=== PATIENT | male | born 1950 | race Caucasian/White ===

== ENCOUNTER → 2017-08-23 10:48 | Outpatient (CLI) | payer MEDICARE, SELFPAY ==
[2017-08-23 12:11] LABS: Absolute Neutrophil Count 4.9 X10^3/uL (2.0-7.7); Basophil# 0.01 X10^3/uL; Basophil% 0.2 % (0-1); Eosinophil# 0.04 X10^3/uL; Eosinophils% 0.6 % (0-5); Hematocrit 47.1 % (40-54); Hemoglobin 15.6 g/dl (13.0-16.5); Lymphocyte % 17.1 % (19-41); Mean Corp Hgb Conc 33.1 g/gl (32-36); Mean Corpuscular Hgb 30.6 pg (27.0-32.0); Mean Corpuscular Volume 92.5 fL (80-94); Mean Platelet Vol. 10.8 fl (6.2-12.0); Monocyte# 0.35 X10^3/uL; Monocyte% 5.4 % (0-10); Neutrophil # 4.93 X10^3/uL (2.7-7.7); Neutrophil % 76.4 % (47-70); Platelet Count 146 K/mm3 (150-450); RBC Distribution Width CV 14.1 % (11.6-14.6); RBC Distribution Width SD 47.7 fl (35.1-43.9); Red Blood Count 5.09 M/mm3 (4.6-6.2); White Blood Count 6.5 K/mm3 (4.4-11.0)
[2017-08-23 12:13] LABS: POSITIVE COUNT NO; POSITIVE DIFFERENTIAL NO; POSITIVE MORPHOLOGY NO
[2017-08-23 12:20] LABS: Microalbumin:Creatinine Ratio 11.6 mg/g CRE (<30 mg/g CRE)
[2017-08-23 12:31] LABS: ALB/GLOB Ratio 0.8 RATIO (0.9-2.4); AST(SGOT) 37 U/L (15-37); Alanine Aminotransfer ALT/SGPT 62 U/L (16-61); Albumin, Serum 3.4 g/dL (3.2-5.0); Alkaline Phosphatase 64 U/L (45-117); Anion Gap 8 (5-15); BUN 19 mg/dL (7-18); BUN/Creat Ratio 15.8 RATIO (10-20); Calcium,Total 8.6 mg/dL (8.5-10.1); Chloride 107 mmol/L (98-107); EST Glomerular Filtration Rate 64 mL/min (>60); Est Glom Filt Rate - Afr Amer 77 mL/min (>60); Glucose 134 mg/dL (74-106); Protein, Total 7.4 g/dL (6.4-8.2); Sodium Level 140 mmol/L (136-145)
[2017-08-23 12:35] LABS: Hemoglobin A1c 7.3 % (4.2-6.3)
== END ==
PROVIDERS: Family Provider Family Medicine; PCP Family Medicine; Visit Provider Family Medicine
DX: Z00.00 Encounter for general adult medical examination without abnormal findings (principal); I10 Essential (primary) hypertension; R73.01 Impaired fasting glucose; E66.9 Obesity, unspecified
CPT/HCPCS: 36415; 80053; 82043; 82570; 83036; 84443; 85025

== ENCOUNTER → 2017-11-30 09:21 | Outpatient (CLI) | payer MEDICARE, SELFPAY ==
[2017-11-30 12:21] LABS: Hemoglobin A1c 8.2 % (4.2-6.3)
== END ==
PROVIDERS: Family Provider Family Medicine; PCP Family Medicine; Visit Provider Family Medicine
DX: E03.9 Hypothyroidism, unspecified (principal); E11.9 Type 2 diabetes mellitus without complications
CPT/HCPCS: 36415; 83036; 84439; 84443

== ENCOUNTER → 2018-01-12 17:37 | Outpatient (CLI) | payer MEDICARE, SELFPAY | PROVIDERS: Family Provider Family Medicine; PCP Family Medicine; Visit Provider Internal Medicine Hematology & Oncology | DX: Z87.891 Personal history of nicotine dependence (principal); Z12.2 Encounter for screening for malignant neoplasm of respiratory organs; C21.8 Malignant neoplasm of overlapping sites of rectum, anus and anal canal | CPT/HCPCS: G0297 ==

== ENCOUNTER → 2018-02-08 15:55 | Outpatient (CLI) | payer MEDICARE, SELFPAY | PROVIDERS: Family Provider Family Medicine; PCP Family Medicine; Visit Provider Nurse Practitioner Family | DX: N39.0 Urinary tract infection, site not specified (principal) | CPT/HCPCS: 87077; 87086; 87088; 87186 ==

== ENCOUNTER → 2018-03-28 10:24 | Outpatient (CLI) | payer MEDICARE, SELFPAY ==
[2018-03-28 12:20] LABS: Absolute Lymphocyte Count 1.07 X10^3/ul (0.83-4.51); Absolute Neutrophil Count 4.6 X10^3/uL (2.0-7.7); Basophil# 0.02 X10^3/uL; Basophil% 0.3 % (0-1); Eosinophil# 0.06 X10^3/uL; Hematocrit 45.5 % (40-54); Lymphocyte # 1.07 X10^3/ul (4.0); Lymphocyte % 17.4 % (19-41); Mean Platelet Vol. 11.1 fl (6.2-12.0); Monocyte# 0.39 X10^3/uL; Monocyte% 6.3 % (0-10); Neutrophil # 4.61 X10^3/uL (2.7-7.7); Neutrophil % 74.8 % (47-70); Platelet Count 148 K/mm3 (150-450); RBC Distribution Width CV 13.9 % (11.6-14.6); RBC Distribution Width SD 47.8 fl (35.1-43.9); Red Blood Count 4.84 M/mm3 (4.6-6.2); White Blood Count 6.2 K/mm3 (4.4-11.0)
[2018-03-28 12:32] LABS: POSITIVE COUNT NO; POSITIVE DIFFERENTIAL NO; POSITIVE MORPHOLOGY NO
[2018-03-28 12:54] LABS: Albumin, Serum 3.1 g/dL (3.2-5.0); BUN 19 mg/dL (7-18); BUN/Creat Ratio 16.4 RATIO (10-20); Creatinine, Serum 1.16 mg/dL (0.70-1.30); EST Glomerular Filtration Rate 66 mL/min (>60); Est Glom Filt Rate - Afr Amer 80 mL/min (>60); Globulin 4.1 g/dL (2.2-4.2); Glucose 120 mg/dL (74-106); Protein, Total 7.2 g/dL (6.4-8.2)
[2018-03-28 12:55] LABS: ALB/GLOB Ratio 0.8 RATIO (0.9-2.4); AST(SGOT) 88 U/L (15-37); Alanine Aminotransfer ALT/SGPT 112 U/L (16-61); Alkaline Phosphatase 56 U/L (45-117); Anion Gap 7 (5-15); Calcium,Total 8.8 mg/dL (8.5-10.1); Chloride 108 mmol/L (98-107); Cholesterol 164 mg/dL (200); Hemoglobin A1c 6.7 % (4.2-6.3); High Density Lipoprotein 36 mg/dL; Potassium 4.1 mmol/L (3.5-5.1); Sodium Level 140 mmol/L (136-145); Thyroid Stim Hormone (TSH) 8.14 uIU/mL (0.358-3.74); Triglycerides 126 mg/dL; Very Low Density Lipoprotein 25 mg/dL (5-40)
== END ==
PROVIDERS: Family Provider Family Medicine; PCP Family Medicine; Visit Provider Family Medicine
DX: I10 Essential (primary) hypertension (principal); E03.9 Hypothyroidism, unspecified; E11.9 Type 2 diabetes mellitus without complications
CPT/HCPCS: 36415; 80053; 80061; 83036; 84443; 85025

== ENCOUNTER → 2019-01-17 | Outpatient (CLI) | payer MEDICARE, SELFPAY ==
[2018-09-12 10:44] VITALS: BMI 40.3
--- NOTE | 2019-01-17 12:46 | CT_ITS ---
STUDY: LOW DOSE CT LUNG CANCER SCREENING REASON FOR EXAM: Male, 68 years old. Lung cancer screening examination. 50 pack-year history of tobacco use. History of rectal carcinoma with colostomy. RADIATION DOSAGE (If Supplied By Facility): CTDIvol = ( 4.02 ) mGy, DLP = ( 150.49 ) mGycm TECHNIQUE: No contrast was administered. Low dose technique was utilized (average mAS-38 and kVp 120). 1.25 mm axial source images with a slice interval of 1.25-mm were reconstructed in lung windows. 2.5 mm axial source images with a slice interval of 2.5-mm were reconstructed in lung windows. 5.0 mm axial source images with a slice interval of 5.0-mm were reconstructed in soft tissue windows. Nodule measured using lung windows on PACS and/or independent workstation with automated measurement of minimum and maximum diameter. Nodule measurement reported as average diameter rounded to the nearest whole number. Growth is defined as an increase ins size of greater than 1.5 mm. COMPARISON: Comparison is made with prior study January 12, 2018. NODULES: Stable 6 mm noncalcified nodule seen in the lateral posterior aspect of the right lower lobe as seen on axial image #189. Stable 2.3 mm noncalcified nodule in the peripheral lateral aspect of the left lower lobe as seen on axial image #202. Stable 6.6 mm well-defined nodule in the posterior medial segment of the right lower lobe as seen on axial image #133. Minimal increased markings in the lingular segment of the left upper lobe as well as in the medial aspect of the right middle lobe suggestive of scarring. Emphysema: Mild emphysematous changes. Calcified right hilar lymph node. Aorta: Unremarkable. Coronary arteries: Coronary artery calcification. Mediastinal nodes: Small benign-appearing mediastinal lymph nodes. Other chest and abdominal findings: CT/Low Dose CT Lung Screening IMPRESSION: Lung-RADS category 2 - Continue annual screening with LDCT in 12 months. IMPORTANT NOTES FOR USE: ACR Lung-RADS Version 1.0 Assessment Categories Release Date: September 11, 2013 Category: Coded 0-4 bases on nodule(s) with highest degree of suspicion. Negative screen is defined as categories 1 and 2; a positive screen is defined as categories 3 and 4. Category 3 and 4A nodules that are unchanged on interval CT should be coded as category 2, and individuals returned to screening in 12 months. Category 4X: Category 3 or 4 nodules with additional imaging findings that increase the suspicion of lung cancer, such as spiculation, GGN that doubles in size in 1 year, enlarged lymph notes, etc. Category Modifiers: S (significant finding unrelated to lung cancer) and C (prior history of treated lung cancer) may be added to the 0-4 Lung-RADS Electronically Signed: Aung Toure, at 13:46 EDT , Service support ,
== END | disposition home or self-care (01) ==
LOC: CT 11:51
PROVIDERS: Family Provider Family Medicine; PCP Family Medicine; Referring Provider Nurse Practitioner Family; Visit Provider Nurse Practitioner Family
DX: F17.209 Nicotine dependence, unspecified, with unspecified nicotine-induced disorders (principal); Z12.2 Encounter for screening for malignant neoplasm of respiratory organs; Z87.891 Personal history of nicotine dependence
CPT/HCPCS: G0297

== ENCOUNTER → 2020-02-06 13:21 | Outpatient (CLI) | payer MEDICARE, SELFPAY ==
[2019-12-04 11:28] VITALS: BMI 37.6
--- NOTE | 2020-02-06 13:23 | CT_ITS ---
STUDY: LOW DOSE CT LUNG CANCER SCREENING REASON FOR EXAM: Male, 69 years old. SMOKER, 1 PPD X 50 YRS. RADIATION DOSAGE (If Supplied By Facility): CTDIvol = ( 4.02 ) mGy, DLP = ( 148.48 ) mGycm TECHNIQUE: No contrast was administered. Low dose technique was utilized (average mAS-38 and kVp 120). 1.25 mm axial source images with a slice interval of 1.25-mm were reconstructed in lung windows. 2.5 mm axial source images with a slice interval of 2.5-mm were reconstructed in lung windows. 5.0 mm axial source images with a slice interval of 5.0-mm were reconstructed in soft tissue windows. Nodule measured using lung windows on PACS and/or independent workstation with automated measurement of minimum and maximum diameter. Nodule measurement reported as average diameter rounded to the nearest whole number. Growth is defined as an increase ins size of greater than 1.5 mm. COMPARISON: Comparison is made with prior study dated 01/17/2019. NODULES: Faint 2 mm noncalcified nodule seen in the lateral aspect of the right upper lobe as seen on axial image #56. Stable 6 mm noncalcified nodule in the lateral posterior aspect of the right lower lobe as seen on axial image #176. Stable 2.3 mm noncalcified nodule in the peripheral lateral aspect of the left lower lobe as seen on axial image #208. Stable 6.6 mm well-defined nodule in the posterior medial segment of the right lower lobe as seen on axial image #130 Emphysema: Mild emphysematous changes. Aorta: Calcified aortic plaques at the level of the aortic arch. Coronary arteries: Coronary artery calcification. Mediastinal nodes: Small benign-appearing mediastinal lymph nodes. Other chest and abdominal findings: CT/Low Dose CT Lung Screening IMPRESSION: Lung-RADS category 2 - Continue annual screening with LDCT in 12 months. IMPORTANT NOTES FOR USE: ACR Lung-RADS Version 1.0 Assessment Categories Release Date: September 11, 2013 Category: Coded 0-4 bases on nodule(s) with highest degree of suspicion. Negative screen is defined as categories 1 and 2; a positive screen is defined as categories 3 and 4. Category 3 and 4A nodules that are unchanged on interval CT should be coded as category 2, and individuals returned to screening in 12 months. Category 4X: Category 3 or 4 nodules with additional imaging findings that increase the suspicion of lung cancer, such as spiculation, GGN that doubles in size in 1 year, enlarged lymph notes, etc. Category Modifiers: S (significant finding unrelated to lung cancer) and C (prior history of treated lung cancer) may be added to the 0-4 Lung-RADS Electronically Signed: Aung Toure, at 14:43 EDT , Service support ,
== END ==
PROVIDERS: PCP Family Medicine; Referring Provider Nurse Practitioner Family; Visit Provider Nurse Practitioner Family
DX: Z12.2 Encounter for screening for malignant neoplasm of respiratory organs (principal); F17.210 Nicotine dependence, cigarettes, uncomplicated
CPT/HCPCS: G0297

== ENCOUNTER → 2020-04-22 14:21 | Outpatient (CLI) | payer MEDICARE, SELFPAY ==
[2019-12-04 11:28] VITALS: BMI 37.6
[2020-04-22 18:20] LABS: Absolute Lymphocyte Count 1.79 X10^3/uL (0.83-4.51); Absolute Neutrophil Count 6.4 X10^3/uL (2.0-7.7); Basophil# 0.06 X10^3/uL; Basophil% 0.7 % (0-1); Eosinophil# 0.08 X10^3/uL; Eosinophils% 0.9 % (0-5); Hematocrit 47.5 % (40-54); Hemoglobin 15.5 g/dL (13.0-16.5); Lymphocyte # 1.79 X10^3/ul (4.0); Lymphocyte % 20.2 % (19-41); Mean Corp Hgb Conc 32.6 g/dL (32-36); Mean Corpuscular Hgb 30.2 pg (27.0-32.0); Mean Corpuscular Volume 92.6 fL (80-94); Mean Platelet Vol. 11.1 fl (6.2-12.0); Monocyte# 0.49 X10^3/uL; Monocyte% 5.5 % (0-10); NRBC Flagged by Analyzer 0 % (0-5); Neutrophil # 6.36 X10^3/uL (2.7-7.7); Neutrophil % 71.7 % (47-70); Platelet Count 195 K/mm3 (150-450); RBC Distribution Width CV 13.2 % (11.6-14.6); RBC Distribution Width SD 45.4 fl (35.1-43.9); Red Blood Count 5.13 M/mm3 (4.6-6.2); White Blood Count 8.9 K/mm3 (4.4-11.0)
[2020-04-22 18:30] LABS: ALB/GLOB Ratio 0.8 RATIO (0.9-2.4); AST(SGOT) 64 U/L (15-37); Alanine Aminotransfer ALT/SGPT 113 U/L (16-61); Albumin, Serum 3.3 g/dL (3.2-5.0); Alkaline Phosphatase 83 U/L (45-117); Anion Gap 6 (5-15); BUN 18 mg/dL (7-18); BUN/Creat Ratio 16.5 RATIO (10-20); Calcium,Total 9.2 mg/dL (8.5-10.1); Chloride 105 mmol/L (98-107); Creatinine, Serum 1.09 mg/dL (0.70-1.30); EST Glomerular Filtration Rate 71 mL/min (>60); Est Glom Filt Rate - Afr Amer 86 mL/min (>60); Globulin 4.2 g/dL (2.2-4.2); Glucose 164 mg/dL (74-106); Potassium 3.9 mmol/L (3.5-5.1); Protein, Total 7.5 g/dL (6.4-8.2); Sodium Level 136 mmol/L (136-145)
[2020-04-23 11:41] LABS: Vitamin D,25 Hydroxy 18.8 ng/mL
== END ==
PROVIDERS: PCP Family Medicine; Referring Provider Family Medicine; Visit Provider Family Medicine
DX: E11.9 Type 2 diabetes mellitus without complications (principal); L30.4 Erythema intertrigo
CPT/HCPCS: 36415; 80053; 82306; 83036; 84443; 85025

== ENCOUNTER → 2020-04-30 10:11 | Outpatient (CLI) | payer MEDICARE, SELFPAY ==
[2019-12-04 11:28] VITALS: BMI 37.6
[2020-04-30 13:41] LABS: Cholesterol 178 mg/dL (200); Free T3 2.4 pg/mL (2.18-3.98); High Density Lipoprotein 35 mg/dL; Triglycerides 240 mg/dL; Very Low Density Lipoprotein 48 mg/dL (5-40)
== END ==
PROVIDERS: PCP Family Medicine; Referring Provider Family Medicine; Visit Provider Family Medicine
DX: E03.9 Hypothyroidism, unspecified (principal); E11.9 Type 2 diabetes mellitus without complications
CPT/HCPCS: 36415; 80061; 84439; 84481

== ENCOUNTER → 2020-08-08 10:46 | Outpatient (CLI) | payer MEDICARE, SELFPAY ==
[2019-12-04 11:28] VITALS: BMI 37.6
[2020-08-08 12:39] LABS: Absolute Lymphocyte Count 1.62 X10^3/uL (0.83-4.51); Absolute Neutrophil Count 7.8 X10^3/uL (2.0-7.7); Basophil# 0.05 X10^3/uL; Basophil% 0.5 % (0-1); Eosinophil# 0.06 X10^3/uL; Eosinophils% 0.6 % (0-5); Hematocrit 46.3 % (40-54); Hemoglobin 15.9 g/dL (13.0-16.5); Lymphocyte # 1.62 X10^3/ul (4.0); Lymphocyte % 15.9 % (19-41); Mean Corp Hgb Conc 34.3 g/dL (32-36); Mean Corpuscular Hgb 31.7 pg (27.0-32.0); Mean Corpuscular Volume 92.2 fL (80-94); Mean Platelet Vol. 11.4 fl (6.2-12.0); Monocyte# 0.61 X10^3/uL; NRBC Flagged by Analyzer 0 % (0-5); Neutrophil # 7.81 X10^3/uL (2.7-7.7); Neutrophil % 76.4 % (47-70); Platelet Count 176 K/mm3 (150-450); RBC Distribution Width CV 13.3 % (11.6-14.6); RBC Distribution Width SD 44.5 fl (35.1-43.9); Red Blood Count 5.02 M/mm3 (4.6-6.2); White Blood Count 10.2 K/mm3 (4.4-11.0)
[2020-08-08 13:02] LABS: Hemoglobin A1c 9.1 % (3.8-5.6)
[2020-08-08 13:19] LABS: ALB/GLOB Ratio 0.8 RATIO (0.9-2.4); AST(SGOT) 64 U/L (15-37); Alanine Aminotransfer ALT/SGPT 102 U/L (16-61); Albumin, Serum 3.4 g/dL (3.2-5.0); Alkaline Phosphatase 78 U/L (45-117); Anion Gap 6 (5-15); BUN 19 mg/dL (7-18); Calcium,Total 9.6 mg/dL (8.5-10.1); Chloride 105 mmol/L (98-107); Creatinine, Serum 1.19 mg/dL (0.70-1.30); EST Glomerular Filtration Rate 64 mL/min (>60); Est Glom Filt Rate - Afr Amer 77 mL/min (>60); Globulin 4.5 g/dL (2.2-4.2); Glucose 201 mg/dL (74-106); Protein, Total 7.9 g/dL (6.4-8.2); Sodium Level 135 mmol/L (136-145)
== END ==
PROVIDERS: PCP Family Medicine; Referring Provider Family Medicine; Visit Provider Family Medicine
DX: E11.9 Type 2 diabetes mellitus without complications (principal)
CPT/HCPCS: 36415; 80053; 83036; 85025

== ENCOUNTER 2020-08-23 12:18 | Emergency (ER) | payer MEDICARE, SELFPAY ==
[2019-12-04 11:28] VITALS: BMI 37.6
[2020-08-23 12:19] VITALS: BP 161/100; PULSE 91; RESP 16; TEMP 36.1; O2SAT 97; BMI 38.4
--- NOTE | 2020-08-23 12:52 | CT_ITS ---
STUDY: CT ABDOMEN AND PELVIS WITH CONTRAST REASON FOR EXAM: Male, 70 years old. ventral hernia, pain, n/v -- IV PO Contrast RADIATION DOSAGE (If Supplied By Facility): CTDIvol = ( 18.98 ) mGy, DLP = ( 1395.71 ) mGycm TECHNIQUE: Transaxial images were obtained from the dome of the diaphragm to the symphysis pubis with oral contrast. Oral and amp; IV Gastrografin and amp; 100mL Isovue-300 was administered. Sagittal and coronal images were reconstructed. Individualized dose optimization techniques were used for this CT. COMPARISON: 12/04/2015 FINDINGS: The visualized lung bases are unremarkable. The visualized portions of the heart are within normal limits. No change in multiple small hepatic cysts. Normal gallbladder and extrahepatic biliary system. Normal spleen. Normal pancreas. Normal bilateral adrenal glands. Normal right kidney. Normal left kidney. Normal visualized stomach. Small diverticulum of the second portion duodenum. Status post abdominal perineal resection with a left lower quadrant colostomy. The appendix is visualized and appears normal. Normal abdominal aorta. Normal inferior vena cava. Normal retroperitoneum. Normal urinary bladder. There is a large (15 cm) hernia of the midline of the anterior abdominal wall in the pelvis containing multiple loops of dilated fluid-filled small bowel with moderate fluid-filled dilatation of small bowel proximal to the entrance the hernia consistent with obstruction. No bowel wall thickening or pneumatosis to suggest bowel wall ischemia. No pneumoperitoneum to suggest perforation. Normal osseous structures. CT/Abdomen/Pelvis WITH Contrast IMPRESSION: Large hernia the midline in the anterior abdominal wall in the pelvis containing multiple loops of small bowel in producing a moderate small bowel obstruction. No evidence of bowel ischemia or bowel perforation. Electronically Signed: Blas Vicente MD at 15:30 EDT Tel , Service support ,
--- NOTE | 2020-08-23 12:53 | ED.DCSUM_ITS ---
History of Present Illness Chief Complaint: Abd Pain Informant: Patient - Abdominal Pain/Flank Pain Onset: Yesterday - Last night at 2300 Context: Sudden Onset Timing: Continuous, Waxes and wanes Quality: Aching Location: - - Lower abdomen at site of chronically worsening swelling Current Severity: Moderate Maximum Severity: Severe Worsened by: Nothing Relieved by: Nothing - Nausea/Vomiting/Emesis GI Symptom: Nausea, Vomiting - Diarrhea/Melena/Hematochezia GI Symptom: - - Last bowel movement in colostomy 2 days ago and was very small amount. Negative for: Diarrhea, Melena, Hematochezia Associated Symptoms: Negative for: Dysuria, Frequency, Hematuria, Urgency Narrative: Patient has history of colon cancer, had a partial colectomy along with a colostomy 5-6 years ago, as well as a large ventral hernia that was repaired with a large mesh remotely. He had a urinary injury complication of one of his surgeries, and had to have a suprapubic catheter for a while while it healed, that has been removed and now he urinates fine. Over the last several months he has developed swelling in his lower abdomen next to one of his abdominal scars, he states recently it has seemed to become larger and last night he had sudden pain over it that has been colicky and progressively worsening along with an episode of vomiting today. Recent Illness/Hospitalization: No - Past Medical History (1) Neuropathy Status: Chronic (2) Rectum cancer Status: Chronic Past Medical History - Allergies and Home Meds Allergies/Adverse Reactions: Allergies No Known Allergies Allergy (Verified 08/23/20 12:19) Primary Care Physician: Byron Brand MD [Primary Care Provider] - Lives: Spouse/ Significant Other Smoking Status: Current every day smoker Review of Systems General: Denies: Chills, Fever, Sweats Eyes: Denies: Visual changes - bilaterally, Diplopia ENT: Denies: Rhinorrhea, Sore throat Cardiovascular: Denies: Chest pain, Palpitations Respiratory: Denies: Dyspnea, Cough, Dyspnea on exertion Gastrointestinal: Reports: Abdominal pain, Nausea, Vomiting. Denies: Diarrhea, Melena, Hematochezia Genitourinary: Denies: Dysuria, Hematuria, Frequency Musculoskeletal: Denies: Back pain, Swelling, Extremity Pain Skin: Denies: Rash, Wounds Neurological: Denies: Headache, Weakness, Numbness Physical Exam Vital Signs/Narrative: Vital Signs Temp Pulse Resp BP Pulse Ox 08/23/20 12:19 96.9 F L 91 16 161/100 H 97 Inital Vital Signs reviewed: Yes General: Well nourished, Well developed, Acute Distress - When pain temporarily exacerbates Head: Normocephalic, Atraumatic Eyes: Perrl, EOMI ENT: Moist mucous membranes, No rhinorrhea Neck: Supple, Nontender Cardiovascular: Regular rate, Regular rhythm, No murmurs Respiratory: No distress, CTA bilaterally, Chest nontender Abdomen: Soft, Nondistended, Tender - Over lower abdominal swollen area compatible with ventral hernia, but soft and able to move it around quite a bit; No other areas of significant abdominal tenderness including around his colostomy left mid abdomen, Hypoactive bowel sounds. Negative for: Guarding, Rebound tenderness Back: Nontender, Normal Inspection. Negative for: CVA tenderness Extremities: Nontender, No edema. Negative for: Calf Tenderness Skin: Normal color, No rash, No Trauma Neurological: Alert, Oriented x3, Cranial nerves II-XII grossly intact, Normal Strength, Normal Sensation Psychological: Normal affect, Normal Mood Diagnostic/Tx/Re-eval Clinical Impression(s) from Imaging Studies Abdomen/Pelvis CT 08/23/20 12:52 IMPRESSION: Large hernia the midline in the anterior abdominal wall in the pelvis containing multiple loops of small bowel in producing a moderate small bowel obstruction. No evidence of bowel ischemia or bowel perforation. Electronically Signed: Blas Vicente MD at 15:30 EDT Tel , Service support , Laboratory Tests 08/23/20 08/23/20 08/23/20 Range/Units 14:29 13:15 13:15 WBC 16.5 H (4.4-11.0) K/mm3 RBC 5.63 (4.6-6.2) M/mm3 Hgb 17.2 H (13.0-16.5) g/dL Hct 50.5 (40-54) % MCV 89.7 (80-94) fL MCH 30.6 (27.0-32.0) pg MCHC 34.1 (32-36) g/dL RDW Std Deviation 42.8 (35.1-43.9) fl RDW Coeff of Ewa 12.9 (11.6-14.6) % Plt Count 242 (150-450) K/mm3 MPV 11.0 (6.2-12.0) fl Immature Gran % (Auto) 0.800 (0.0-0.9) % Neut % (Auto) 90.0 H (47-70) % Lymph % (Auto) 5.4 L (19-41) % [place] % (Auto) 3.5 (0-10) % Eos % (Auto) 0.0 (0-5) % Baso % (Auto) 0.3 (0-1) % Absolute Neuts (auto) 14.9 H (2.0-7.7) X10^3/uL Absolute Lymphs (auto) 0.89 (0.83-4.51) X10^3/uL Nucleated RBC % 0 (0-5) % Sodium 131 L (136-145) mmol/L Potassium 4.3 (3.5-5.1) mmol/L Chloride 100 (98-107) mmol/L Carbon Dioxide 23.0 (21.0-32.0) mmol/L Anion Gap 8 (5-15) BUN 28 H (7-18) mg/dL Creatinine 1.38 H (0.70-1.30) mg/dL Estim Creat Clear Calc 46.81 ml/min Est GFR (MDRD) Af Amer 65 (>60) mL/min Est GFR (MDRD) Non-Af 54 L (>60) mL/min BUN/Creatinine Ratio 20.3 H (10-20) RATIO Glucose 285 H (74-106) mg/dL Calcium 10.0 (8.5-10.1) mg/dL Total Bilirubin 1.40 H (0.20-1.00) mg/dL AST 73 H (15-37) U/L ALT 118 H (16-61) U/L Alkaline Phosphatase 79 (45-117) U/L Total Protein 8.5 H (6.4-8.2) g/dL Albumin 3.8 (3.2-5.0) g/dL Globulin 4.7 H (2.2-4.2) g/dL Albumin/Globulin Ratio 0.8 L (0.9-2.4) RATIO Urine Color Yellow (Yellow) Urine Clarity Sl. Cloudy (Clear) Urine pH 5.0 (5.0 - 8.0) Ur Specific [place] 1.025 (1.002-1.030) Urine Protein 15 H (Negative) mg/dl Urine Glucose (UA) 250 H (Normal) mg/dl Urine Ketones 15 H (Negative) mg/dl Urine Occult Blood Negative (Negative) /ul Urine Nitrite Negative (Negative) Urine Bilirubin 1 H (Negative) mg/dL Urine Urobilinogen 1 H (Normal) mg/dl Ur Leukocyte Esterase 100 H (Negative) /ul Urine RBC 0 SEEN (0-5) /hpf Urine WBC 0-5 SEEN (0-5) /hpf Ur Squamous Epith Cells 0-5 SEEN (0-5) /hpf Urine Bacteria RARE (None Seen) /hpf Urine Mucus 1+ (<or=2+) /hpf - Medical Decision Making Work-up as above, patient does have a small bowel obstruction. No evidence of incarceration or bowel ischemia. Patient and family are requesting specific surgeon that is not available or on-call this weekend, so I discussed with the on-call surgeon Dr. Hernandez who reviewed the case and CT scan, told me that he is too complicated to remain here, as he will likely need surgery to repair this. Further information from the patient: He had the partial colectomy and colostomy at [place], subsequently he ended up having surgery several times at [facility] to repair a hernia involving the colostomy, in addition to a flap from his abdomen to repair a defect in his right buttock/sacrum. The hernia he has now that is involved with the obstruction is in the area where the flap was taken from and is a new hernia relatively. The patient does not want to go to [facility] if he cannot stay here. Discussed with [facility], they are tight on beds right now but expect to have 1 available in 3 or 4 hours from now. Therefore the patient will be observed here in the emergency department until we have a bed available, we anticipate then he will be transferred. I will turn the patient over in the meantime. I also have ordered a lactic acid to ensure it is within normal limits in addition to a Covid test. ED Disposition - Plan for ED Patient: Disposition: [facility] Diagnosis: Ventral hernia with obstruction and without gangrene Referrals: Byron Brand MD [Primary Care Provider] -
[2020-08-23] MEDS: 0.9% Normal Saline 1,000 ML 1000 ML IV (13:24)
[2020-08-23] MEDS: Morphine 4 MG/ML Syringe IV ×3 (13:24→16:57)
[2020-08-23] MEDS: Ondansetron 4 MG/2 ML Vial IV (13:26)
[2020-08-23 13:27] LABS: Absolute Lymphocyte Count 0.89 X10^3/uL (0.83-4.51); Absolute Neutrophil Count 14.9 X10^3/uL (2.0-7.7); Basophil# 0.05 X10^3/uL; Basophil% 0.3 % (0-1); Hematocrit 50.5 % (40-54); Hemoglobin 17.2 g/dL (13.0-16.5); Lymphocyte # 0.89 X10^3/ul (4.0); Lymphocyte % 5.4 % (19-41); Mean Corp Hgb Conc 34.1 g/dL (32-36); Mean Corpuscular Hgb 30.6 pg (27.0-32.0); Mean Corpuscular Volume 89.7 fL (80-94); Monocyte# 0.58 X10^3/uL; Monocyte% 3.5 % (0-10); NRBC Flagged by Analyzer 0 % (0-5); Neutrophil # 14.87 X10^3/uL (2.7-7.7); Platelet Count 242 K/mm3 (150-450); RBC Distribution Width CV 12.9 % (11.6-14.6); RBC Distribution Width SD 42.8 fl (35.1-43.9); Red Blood Count 5.63 M/mm3 (4.6-6.2); White Blood Count 16.5 K/mm3 (4.4-11.0)
[2020-08-23 13:47] LABS: ALB/GLOB Ratio 0.8 RATIO (0.9-2.4); AST(SGOT) 73 U/L (15-37); Alanine Aminotransfer ALT/SGPT 118 U/L (16-61); Albumin, Serum 3.8 g/dL (3.2-5.0); Alkaline Phosphatase 79 U/L (45-117); Anion Gap 8 (5-15); BUN 28 mg/dL (7-18); BUN/Creat Ratio 20.3 RATIO (10-20); Chloride 100 mmol/L (98-107); Creatinine, Serum 1.38 mg/dL (0.70-1.30); EST Glomerular Filtration Rate 54 mL/min (>60); Est Glom Filt Rate - Afr Amer 65 mL/min (>60); Estimated Creatinine Clearance 46.81 ml/min; Globulin 4.7 g/dL (2.2-4.2); Glucose 285 mg/dL (74-106); Potassium 4.3 mmol/L (3.5-5.1); Protein, Total 8.5 g/dL (6.4-8.2); Sodium Level 131 mmol/L (136-145)
[2020-08-23 14:33] LABS: Red Blood Cells-Urine 0 SEEN /hpf (0-5)
[2020-08-23 14:35] LABS: Color, Urine Yellow (Yellow); Glucose, Dipstick 250 mg/dl (Normal); Ketone-Dipstick 15 mg/dl (Negative); Leukocyte Esterase-Dipstick 100 /ul (Negative); Nitrite-Dipstick Negative (Negative); Occult Blood-Urine Negative /ul (Negative); Protein-Dipstick 15 mg/dl (Negative); Specific Gravity, Urine 1.025 (1.002-1.030); Urine Clarity Sl. Cloudy (Clear); Urine Urobilinogen 1 mg/dl (Normal)
[2020-08-23 14:36] LABS: Urine Bilirubin Dipstick 1 mg/dL (Negative)
[2020-08-23 14:44] LABS: Bacteria RARE /hpf (None Seen); Mucous, Urine 1+ /hpf (<or=2+); Squamous Epithelial Cells - UA 0-5 SEEN /hpf (0-5); White Blood Cells 0-5 SEEN /hpf (0-5)
[2020-08-23 15:00] VITALS: BP 154/89; PULSE 80; RESP 16; O2SAT 91
[2020-08-23] MEDS: 0.9% Normal Saline 1,000 ML 150 ML IV (16:57)
[2020-08-23 16:59] VITALS: BP 140/84; PULSE 88; RESP 18; O2SAT 97
--- NOTE | 2020-08-23 17:14 | NURSING ---
Dr. Spencer called back into unit. Relayed that [facility] called back stating they would probably have a bed available in 3-4 hours and to keep the pt in the ER until bed available for pain control. Dr. Feliz also aware of above. Relayed information to patient and .
[2020-08-23 17:32] LABS: Lactic Acid 1.7 mmol/L (0.4-1.9)
[2020-08-23 18:19] VITALS: BP 135/86; PULSE 82; RESP 16; TEMP 36.8; O2SAT 988
== END 2020-08-23 18:39 | disposition short-term general hospital (02) ==
PROVIDERS: Emergency Provider Emergency Medicine; PCP Family Medicine
DX: K43.6 Other and unspecified ventral hernia with obstruction, without gangrene (principal); F17.200 Nicotine dependence, unspecified, uncomplicated; Z93.3 Colostomy status; Z90.49 Acquired absence of other specified parts of digestive tract
CPT/HCPCS: 74177; 80053; 81001; 83605; 85025; 87426; 96361; 96374; 96375; 96376; 99285; J7030; Q9967; A4216; J2405

== ENCOUNTER → 2021-01-15 10:20 | Outpatient (CLI) | payer MEDICARE, SELFPAY ==
[2021-01-15 10:24] LABS: Bacteria 0 SEEN /hpf (None Seen); Mucous, Urine 0 SEEN /hpf (<or=2+); Red Blood Cells-Urine 0 SEEN /hpf (0-5); Squamous Epithelial Cells - UA 0 SEEN /hpf (0-5)
[2021-01-15 12:22] LABS: Color, Urine Yellow (Yellow); Glucose, Dipstick Normal (Normal); Ketone-Dipstick Negative (Negative); Leukocyte Esterase-Dipstick 500 /ul (Negative); Nitrite-Dipstick Positive (Negative); Occult Blood-Urine 25 /ul (Negative); Protein-Dipstick 15 mg/dl (Negative); Urine Bilirubin Dipstick Negative (Negative); Urine Clarity Sl. Cloudy (Clear); Urine Urobilinogen Normal (Normal)
[2021-01-15 12:30] LABS: White Blood Cells >100 SEEN /hpf (0-5)
[2021-01-15 12:44] LABS: Vitamin B12 376 pg/mL (211-911)
[2021-01-15 12:54] LABS: ALB/GLOB Ratio 0.7 RATIO (0.9-2.4); AST(SGOT) 25 U/L (15-37); Alanine Aminotransfer ALT/SGPT 39 U/L (16-61); Albumin, Serum 3.1 g/dL (3.2-5.0); Alkaline Phosphatase 73 U/L (45-117); Anion Gap 7 (5-15); BUN 14 mg/dL (7-18); BUN/Creat Ratio 13.1 RATIO (10-20); Calcium,Total 8.8 mg/dL (8.5-10.1); Chloride 107 mmol/L (98-107); Cholesterol 148 mg/dL (200); Creatinine, Serum 1.07 mg/dL (0.70-1.30); EST Glomerular Filtration Rate 72 mL/min (>60); Est Glom Filt Rate - Afr Amer 87 mL/min (>60); Globulin 4.4 g/dL (2.2-4.2); Glucose 143 mg/dL (74-106); High Density Lipoprotein 38 mg/dL; PSA,Total - Annual Screen 2.88 ng/mL (0.00-4.00); Potassium 3.9 mmol/L (3.5-5.1); Protein, Total 7.5 g/dL (6.4-8.2); Sodium Level 137 mmol/L (136-145); Thyroid Stim Hormone (TSH) 3.59 uIU/mL (0.358-3.74); Triglycerides 127 mg/dL; Very Low Density Lipoprotein 25 mg/dL (5-40)
== END ==
PROVIDERS: Family Medicine; PCP Family Medicine; Referring Provider Family Medicine; Visit Provider Family Medicine
DX: E11.40 Type 2 diabetes mellitus with diabetic neuropathy, unspecified (principal); N40.0 Benign prostatic hyperplasia without lower urinary tract symptoms; R30.0 Dysuria; Z12.5 Encounter for screening for malignant neoplasm of prostate
CPT/HCPCS: 36415; 80053; 80061; 81001; 82607; 84153; 84443; 87086; 87088; 87186; G0103

== ENCOUNTER → 2021-02-18 12:29 | Outpatient (CLI) | payer MEDICARE, SELFPAY ==
--- NOTE | 2021-02-18 12:30 | CT_ITS ---
STUDY: LOW DOSE CT LUNG CANCER SCREENING REASON FOR EXAM: Male, 70 years old. Lung can er screening -- 53 pack yr hx; current smoker;asymptomatic RADIATION DOSAGE (If Supplied By Facility): CTDIvol = ( 3.18 ) mGy, DLP = ( 104.83 ) mGycm TECHNIQUE: No contrast was administered. Low dose technique was utilized (average mAS-38 and kVp 120). 1.25 mm axial source images with a slice interval of 1.25-mm were reconstructed in lung windows. 2.5 mm axial source images with a slice interval of 2.5-mm were reconstructed in lung windows. 5.0 mm axial source images with a slice interval of 5.0-mm were reconstructed in soft tissue windows. Nodule measured using lung windows on PACS and/or independent workstation with automated measurement of minimum and maximum diameter. Nodule measurement reported as average diameter rounded to the nearest whole number. Growth is defined as an increase ins size of greater than 1.5 mm. COMPARISON: 02/06/2020 NODULES: 2 mm noncalcified nodule in the lateral right upper lobe on image 45 of series 2 is stable. 3 mm noncalcified nodule in the lateral right upper lobe on image 111 of series 2 is stable. 6 mm nodule in the lateral right lower lobe on image 166 of series 2 is stable. Oval-shaped noncalcified nodule in the lateral left lower lobe measuring 4 mm is stable. 8 x 10 noncalcified oval-shaped nodule in the medial right lower lobe on image 119 of series 2 is stable. Pulmonary nodules are stable when compared [id number] and measured in similar fashion on both studies. Faint amorphous ground glass opacity in the subpleural/peripheral left upper lobe, new. Emphysema: Mild emphysema with bronchiectasis Endobronchial lesion: None Aorta: Mild atherosclerosis Coronary arteries: Moderate atherosclerosis Heart: Normal size Pulmonary artery: Unremarkable. An opacified technique Mediastinal nodes: No adenopathy Other chest and abdominal findings: None CT/Low Dose CT Lung Screening IMPRESSION: 1. Lung-RADS category 2 - Continue annual screening with LDCT in 12 months. 2. Faint ill-defined groundglass opacity (new) of the left upper lobe (peripheral) most typically represents pneumonitis/bronchiolitis. Recommend correlating with patient''s symptoms. IMPORTANT NOTES FOR USE: ACR Lung-RADS Version 1.1 Assessment Categories Release Date: 2018 Category: Coded 0-4 bases on nodule(s) with highest degree of suspicion. Negative screen is defined as categories 1 and 2; a positive screen is defined as categories 3 and 4. Category 3 and 4A nodules that are unchanged on interval CT should be coded as category 2, and individuals returned to screening in 12 months. Category 4X: Category 3 or 4 nodules with additional imaging findings that increase the suspicion of lung cancer, such as spiculation, GGN that doubles in size in 1 year, enlarged lymph notes, etc. Category Modifiers: S (significant finding unrelated to lung cancer) Electronically Signed: Chandu Turner MD ([place]) at 13:04 EDT , Service support ,
== END ==
PROVIDERS: PCP Family Medicine; Referring Provider Nurse Practitioner Family; Visit Provider Nurse Practitioner Family
DX: Z12.2 Encounter for screening for malignant neoplasm of respiratory organs (principal); Z87.891 Personal history of nicotine dependence
CPT/HCPCS: 71271

== ENCOUNTER → 2021-02-25 13:49 | Outpatient (CLI) | payer MEDICARE, SELFPAY ==
[2021-02-25 16:58] LABS: Mucous, Urine 0 SEEN /hpf (<or=2+); Squamous Epithelial Cells - UA 0 SEEN /hpf (0-5)
[2021-02-25 18:04] LABS: Color, Urine Brown (Yellow); Glucose, Dipstick Normal (Normal); Ketone-Dipstick 5 mg/dl (Negative); Leukocyte Esterase-Dipstick 500 /ul (Negative); Nitrite-Dipstick Positive (Negative); Occult Blood-Urine 250 /ul (Negative); Protein-Dipstick 100 mg/dl (Negative); Urine Bilirubin Dipstick Negative (Negative); Urine Clarity Cloudy (Clear); Urine Urobilinogen Normal (Normal)
[2021-02-25 18:11] LABS: White Blood Cells >100 SEEN /hpf (0-5)
[2021-02-25 18:13] LABS: Red Blood Cells-Urine 25-50 SEEN /hpf (0-5)
[2021-02-25 18:14] LABS: Bacteria 2+ /hpf (None Seen)
== END ==
PROVIDERS: PCP Family Medicine; Referring Provider Family Medicine; Visit Provider Family Medicine
DX: R39.9 Unspecified symptoms and signs involving the genitourinary system (principal)
CPT/HCPCS: 81001; 87086; 87088; 87186

== ENCOUNTER 2021-06-17 10:26 | Outpatient (CLI) | payer MEDICARE, SELFPAY | END 2021-06-17 23:59 | disposition short-term general hospital (02) | LOC: MFPLAB 10:29 | PROVIDERS: PCP Family Medicine; Referring Provider Family Medicine; Visit Provider Family Medicine | DX: R39.9 Unspecified symptoms and signs involving the genitourinary system (principal) | CPT/HCPCS: 87077; 87086; 87088; 87186 ==

== ENCOUNTER 2021-06-22 09:59 | Emergency (ER) | payer MEDICARE, SELFPAY ==
[2021-06-22 10:00] VITALS: BP 154/104; PULSE 74; RESP 16; TEMP 36.2; O2SAT 95; BMI 42.8
--- NOTE | 2021-06-22 10:21 | EKG12_ITS ---
Test Reason : CP Blood Pressure : / mmHG Vent. Rate : 072 BPM Atrial Rate : 072 BPM P-R Int : 160 ms QRS Dur : 086 ms QT Int : 342 ms P-R-T Axes : 046 064 067 degrees QTc Int : 374 ms Normal sinus rhythm Normal ECG Confirmed by TRACY MCKAY, GISSEL ([id number]), magazine editor EM ROQUE ([id number]) on 06/23/2021 11:08:15 AM Referred By: RU Confirmed By:GISSEL MOLINA MD
[2021-06-22 10:29] LABS: Absolute Lymphocyte Count 2.02 X10^3/uL (0.83-4.51); Absolute Neutrophil Count 8.4 X10^3/uL (2.0-7.7); Basophil# 0.06 X10^3/uL; Basophil% 0.5 % (0-1); Eosinophil# 0.09 X10^3/uL; Eosinophils% 0.8 % (0-5); Hemoglobin 15.3 g/dL (13.0-16.5); Lymphocyte # 2.02 X10^3/ul (0.83-4.51); Mean Corp Hgb Conc 34.8 g/dL (32-36); Mean Corpuscular Hgb 30.4 pg (27.0-32.0); Mean Corpuscular Volume 87.5 fL (80-94); Mean Platelet Vol. 10.9 fl (6.2-12.0); Monocyte# 0.59 X10^3/uL; Monocyte% 5.2 % (0-10); NRBC Flagged by Analyzer 0 % (0-5); Neutrophil # 8.41 X10^3/uL (2.7-7.7); Neutrophil % 74.8 % (47-70); Platelet Count 173 K/mm3 (150-450); RBC Distribution Width CV 12.8 % (11.6-14.6); RBC Distribution Width SD 41.1 fl (35.1-43.9); Red Blood Count 5.03 M/mm3 (4.6-6.2); White Blood Count 11.3 K/mm3 (4.4-11.0)
--- NOTE | 2021-06-22 10:39 | EDS_ITS ---
HPI <CATY Bell - Last Filed: 06/22/21 13:19> History of Present Illness Chief Complaint: Chest Pain Narrative Narrative: 70-year-old male with PMH of HTN, HLD, DM2, 60-year pack history, colorectal cancer s/p colectomy presents with chest pain. He states he has gotten pain in his throat and epigastric region daily for the last year. He cannot describe it but says it is uncomfortable and a weird sensation. No sharp or tearing pain and no radiation of pain to his back. No jaw or arm pain. It occurred last night while lying in bed around 4 AM and stopped when walking into the hospital this morning. He was prompted to come in when he took his BP this morning and the cuff stopped reading his heart rate and he felt lightheaded. Denies associated shortness of breath, nausea, vomiting, or diaphoresis. He has no exertional pain. Denies cardiopulmonary history. He reports a remote stress test that was normal. PFSH <CATY Bell - Last Filed: 06/22/21 13:19> [facility] Medical History (Updated 06/22/21 @ 11:44 by CATY Bell) ABDOMINAL PERINEAL RESETION OF SIGMOID Colostomy in place DISSECTED URETHRA Encounter for screening for malignant neoplasm of lung in current smoker with 30 pack year history or greater Hypertension Rectal cancer Rectal mass Suprapubic catheter Tobacco use disorder, continuous Home Medications lisinopril 20 mg PO BID 01/22/14 [History Last Taken 09/12/15 07:00] levothyroxine 75 mcg PO DAILY 01/05/18 [History Last Taken Unknown] linagliptin 5 mg PO DAILY 01/05/18 [History Last Taken Unknown] metformin 500 mg PO BID 01/05/18 [History Last Taken Unknown] indapamide 1.25 mg tablet 1.25 mg PO QAM 01/17/19 [History Last Taken Unknown] glipizide 5 mg tablet 5 mg PO DAILY 02/03/21 [History Last Taken Unknown] atorvastatin 10 mg tablet 10 mg PO DAILY 02/18/21 [History Last Taken Unknown] Allergy/AdvReac Type Severity Reaction Status Date / Time No Known Allergies Allergy Verified 06/22/21 10:02 Family History Mother Heart disease Myocardial infarction Hypertension Social History (Updated 02/18/21 @ 11:59 by Estela Rod) Smoking Status: Current every day smoker tobacco type: cigarettes Tobacco: How many years used: 51 Electronic Cigarette Use: not used second hand exposure: Yes quit status: has quit before counseling given: provider counseling ROS <CATY Bell - Last Filed: 06/22/21 13:19> ROS ED ROS Narrative Constitutional: Negative for fever, chills, malaise. Eyes: Negative for visual change. ENT: Negative for sore throat, ear pain, rhinorrhea. CVS: Positive for chest pain. Negative for palpitations, syncope. Respiratory: Negative for shortness of breath, cough, orthopnea. GI: Negative for abdominal pain, nausea, vomiting, diarrhea, constipation, melena, hematochezia. : Negative for dysuria, hematuria or frequency. Neuro: Negative for headache, motor/sensory dysfunction. Skin: Negative for rash, abscess, or wound. Heme: Negative for easy bruising, bleeding, lymphadenopathy. EXAM <CATY Bell - Last Filed: 06/22/21 13:19> Physical Exam Const Vital Signs: 06/22/21 10:00 06/22/21 10:19 06/22/21 10:22 Temperature 97.1 F L Temperature Source Temporal Pulse Rate 74 Respiratory Rate 16 Respiratory Effort Normal Blood Pressure 154/104 H Blood Pressure Mean 120 Pulse Ox 95 Oxygen Delivery Method Room Air Room Air 06/22/21 11:00 06/22/21 12:00 06/22/21 13:00 Temperature Temperature Source Pulse Rate 70 64 67 Respiratory Rate 18 14 18 Respiratory Effort Blood Pressure 127/82 H 127/81 H 140/82 H Blood Pressure Mean 97 96 101 Pulse Ox 95 93 95 Oxygen Delivery Method Room Air Room Air Room Air <Dr. Sheila Kumar MD - Last Filed: 06/22/21 13:21> Physical Exam Const Vital Signs: 06/22/21 10:00 06/22/21 10:19 06/22/21 10:22 Temperature 97.1 F L Temperature Source Temporal Pulse Rate 74 Respiratory Rate 16 Respiratory Effort Normal Blood Pressure 154/104 H Blood Pressure Mean 120 Pulse Ox 95 Oxygen Delivery Method Room Air Room Air 06/22/21 11:00 06/22/21 12:00 06/22/21 13:00 Temperature Temperature Source Pulse Rate 70 64 67 Respiratory Rate 18 14 18 Respiratory Effort Blood Pressure 127/82 H 127/81 H 140/82 H Blood Pressure Mean 97 96 101 Pulse Ox 95 93 95 Oxygen Delivery Method Room Air Room Air Room Air Positive well nourished and well developed General Appearance ED: well developed HEENT normocephalic and atraumatic Eyes PERRL and EOMs intact bilaterally Neck supple Chest Wall inspection of chest normal and palpation of chest normal Resp normal respiratory effort Effort and Inspection: respiratory distress Cardio regular rate and regular rhythm GI normal to inspection, nondistended, normoactive bowel sounds and soft to palpation Extremity normal to inspection Neuro oriented x3 Sensorium / Orientation: awake and alert Psych mental status grossly normal Skin no rashes or lesions noted <CATY Bell - Last Filed: 06/22/21 13:19> Heart Score History: Slightly/Non-Suspicious ECG: Normal Age: >/= 65 years Risk Factors: >/= 3 Risk Factors or History of CAD Troponin: </= Normal Limit Score: 4 MDM <CATY Bell - Last Filed: 06/22/21 13:19> MDM MDM Narrative Medical decision making narrative: Patient presents for recurrent chest pain over the last year. Pain is mainly in his throat and epigastric region. He appears well nontoxic. He is hypertensive at 154/104, otherwise normal vital signs. His medical exam is unremarkable. Cardiac work-up is negative with nonischemic EKG and troponin x2 WNL. Chest x-ray is negative. With patient's recurrent pain over the last year no associated shortness of breath or exertional or pleuritic pain I have no concern for PE. His pain may be gastric in nature; however, I advised he see his PCP this week to arrange an outpatient stress test. BP improved with monitoring in the ED. Patient was agreeable with this plan and discharged in stable condition. Diagnosis 1. Chest pain Lab Data Labs: Laboratory Results - last 24 hr 06/22/21 06/22/21 06/22/21 10:00 10:00 12:35 WBC 11.3 H RBC 5.03 Hgb 15.3 Hct 44.0 MCV 87.5 MCH 30.4 MCHC 34.8 RDW Std Deviation 41.1 RDW Coeff of Ewa 12.8 Plt Count 173 MPV 10.9 Immature Gran % (Auto) 0.700 Neut % (Auto) 74.8 H Lymph % (Auto) 18.0 L [place] % (Auto) 5.2 Eos % (Auto) 0.8 Baso % (Auto) 0.5 Absolute Neuts (auto) 8.4 H Absolute Lymphs (auto) 2.02 Nucleated RBC % 0 Sodium 132 L Potassium 4.2 Chloride 99 Carbon Dioxide 26.0 Anion Gap 7 BUN 27 H Creatinine 1.26 Estim Creat Clear Calc 47.82 Est GFR (MDRD) Af Amer 72 Est GFR (MDRD) Non-Af 60 BUN/Creatinine Ratio 21.4 H Glucose 358 H Calcium 9.6 Troponin I High Sens 7 7 Radiography Chest X-Ray - ED: 1 View Diagnostic Testing: Clinical Impression(s) from Imaging Studies Chest X-Ray 06/22/21 10:40 IMPRESSION: Normal x-ray examination of the chest. Electronically Signed: Blas Vicente MD at 10:57 EST , ED attending interpretation shows normal heart size, no acute infiltrate, edema, or effusion EKG Initial EKG: Attestation: I personally reviewed and interpreted this EKG as follows: Interpretation: Sinus Rhythm Comments: Normal sinus rhythm, normal intervals, no acute ST or T wave changes <Dr. Sheila Kumar MD - Last Filed: 06/22/21 13:21> [facility] Lab Data Labs: Laboratory Results - last 24 hr 06/22/21 06/22/21 06/22/21 10:00 10:00 12:35 WBC 11.3 H RBC 5.03 Hgb 15.3 Hct 44.0 MCV 87.5 MCH 30.4 MCHC 34.8 RDW Std Deviation 41.1 RDW Coeff of Ewa 12.8 Plt Count 173 MPV 10.9 Immature Gran % (Auto) 0.700 Neut % (Auto) 74.8 H Lymph % (Auto) 18.0 L [place] % (Auto) 5.2 Eos % (Auto) 0.8 Baso % (Auto) 0.5 Absolute Neuts (auto) 8.4 H Absolute Lymphs (auto) 2.02 Nucleated RBC % 0 Sodium 132 L Potassium 4.2 Chloride 99 Carbon Dioxide 26.0 Anion Gap 7 BUN 27 H Creatinine 1.26 Estim Creat Clear Calc 47.82 Est GFR (MDRD) Af Amer 72 Est GFR (MDRD) Non-Af 60 BUN/Creatinine Ratio 21.4 H Glucose 358 H Calcium 9.6 Troponin I High Sens 7 7 Radiography Diagnostic Testing: Clinical Impression(s) from Imaging Studies Chest X-Ray 06/22/21 10:40 IMPRESSION: Normal x-ray examination of the chest. Electronically Signed: Blas Vicente MD at 10:57 EST , Treatment and Re-Evaluation Comments:: Patient seen and examined with physician's service order clerk. Patient was independently interviewed and examined. Patient presents after having pain in the epigastric region as well as in the anterior neck this morning. He states he uses a blood pressure machine to check his vital signs and noted that his heart was skipping beats. Patient reportedly has had similar symptoms over the past year. Physical exam Head and neck examination is unremarkable. Heart is regular rate and rhythm. Lung sounds are clear. Abdomen is soft and nontender. Neuro exam unremarkable. EKG reviewed and reveals no acute ischemia. Chest x-ray and lab work reviewed and unremarkable. Patient is to continue reflux medication at home. Return instructions provided. Discharge Plan Triage Chief Complaint: Chest Pain ED Provider: Becky Franks Dx/Rx/DC Orders Clinical Impression: Chest pain Instructions: ED Chest Pain, Noncardiac Prescriptions: No Action indapamide 1.25 mg tablet 1.25 mg PO QAM RF: 0 glipizide 5 mg tablet 5 mg PO DAILY RF: 0 atorvastatin 10 mg tablet 10 mg PO DAILY RF: 0 lisinopril 20 MG tablet 20 mg PO BID RF: 0 levothyroxine 75 MCG tablet 75 mcg PO DAILY RF: 0 linagliptin 5 MG tablet 5 mg PO DAILY RF: 0 metformin 500 MG tablet 500 mg PO BID RF: 0 Primary Care Provider: Byron Brand Referrals: Byron Brand MD [Primary Care Provider] - Activity Restrictions/Additional Instructions: Today you were evaluated for chest pain. There is no sign of a heart attack. Please see your PCP this week to arrange an outpatient stress test as we cannot rule out underlying heart disease. Come back to the ER if you develop new or worsening symptoms Disposition Disposition: Home, Self Care
--- NOTE | 2021-06-22 10:40 | RAD_ITS ---
STUDY: X-RAY CHEST REASON FOR EXAM: Male, 70 years old. chest pain TECHNIQUE: Single AP portable view of the chest. COMPARISON: None. FINDINGS: The lungs are clear and expanded. There is no demonstrated pleural abnormality. Normal size heart. Normal mediastinum and niurka. Normal visualized pulmonary arteries. Normal visualized aortic arch and descending thoracic aorta. Normal visualized thoracic spine. Normal visualized ribs, clavicles, and shoulders. There is no demonstrated abnormality of the visualized soft tissue structures of the upper abdomen. RAD/Chest 1 View (Portable) IMPRESSION: Normal x-ray examination of the chest. Electronically Signed: Blas Vicente MD at 10:57 EST ,
[2021-06-22 10:42] LABS: Anion Gap 7 (5-15); BUN 27 mg/dL (7-18); BUN/Creat Ratio 21.4 RATIO (10-20); Calcium,Total 9.6 mg/dL (8.5-10.1); Chloride 99 mmol/L (98-107); Creatinine, Serum 1.26 mg/dL (0.70-1.30); EST Glomerular Filtration Rate 60 mL/min (>60); Est Glom Filt Rate - Afr Amer 72 mL/min (>60); Estimated Creatinine Clearance 47.82 ml/min; Glucose 358 mg/dL (74-106); Potassium 4.2 mmol/L (3.5-5.1); Sodium Level 132 mmol/L (136-145); Troponin-I HS 7 pg/mL (3.0-78.0)
[2021-06-22 11:00] VITALS: BP 127/82; PULSE 70; RESP 18; O2SAT 95
--- NOTE | 2021-06-22 11:40 | ED.RN ---
Patient took full strength Aspirin this am, physician aware patient not given ordered baby aspirin.
[2021-06-22 12:00] VITALS: BP 127/81; PULSE 64; RESP 14; O2SAT 93
[2021-06-22 13:00] VITALS: BP 140/82; PULSE 67; RESP 18; O2SAT 95
[2021-06-22 13:02] LABS: Troponin-I HS 7 pg/mL (3.0-78.0)
[2021-06-22 13:26] VITALS: BP 134/92; PULSE 64; O2SAT 96
== END 2021-06-22 13:27 | disposition home or self-care (01) ==
PROVIDERS: Emergency Provider Physician Assistant; PCP Family Medicine; Visit Provider Physician Assistant
DX: R07.9 Chest pain, unspecified (principal); F17.210 Nicotine dependence, cigarettes, uncomplicated
CPT/HCPCS: 71045; 80048; 84484; 85025; 93005; 99284; A4216

== ENCOUNTER → 2021-11-10 | Outpatient (CLI) | payer MEDICARE, SELFPAY | END | disposition home or self-care (01) | LOC: MFPLAB 15:31 | PROVIDERS: PCP Family Medicine; Visit Provider Family Medicine | DX: Z00.00 Encounter for general adult medical examination without abnormal findings (principal) ==

== ENCOUNTER 2022-01-23 15:31 | Observation (INO) | payer MEDICARE, SELFPAY ==
[2022-01-23 15:32] VITALS: BP 168/94; PULSE 65; RESP 18; TEMP 36.4; O2SAT 98; BMI 36.7
--- NOTE | 2022-01-23 15:45 | CT_ITS ---
STUDY: CT ABDOMEN AND PELVIS WITH CONTRAST REASON FOR EXAM: Male, 71 years old. Suspect high-grade obstruction RADIATION DOSAGE (If Supplied By Facility): CTDIvol = ( 18.17 ) mGy, DLP = ( 1211.82 ) mGycm TECHNIQUE: Transaxial images were obtained from the dome of the diaphragm to the symphysis pubis without oral contrast. IV 100mL Isovue-300 was administered. Sagittal and coronal images were reconstructed. Individualized dose optimization techniques were used for this CT. COMPARISON: 08/23/2020 FINDINGS: There is a tiny subcentimeter nodules in each lower lobe of indeterminate significance. Possibility of metastatic disease not excluded. The visualized portions of the heart are within normal limits. Liver is normal size. There is 3 solid nodules in the right lobe of the liver and one in the left. the largest measuring approximately 1.9 x 1.75 cm possibly metastatic. Bile ducts are nondilated.. Normal gallbladder and extrahepatic biliary system. Normal spleen. Normal pancreas. Normal bilateral adrenal glands. No evidence for renal obstruction or mass.. There is distention of the stomach as well as concentric thickening of the lumen of the gastric body possibly representing nonspecific gastritis. There are multiple loops of distended small bowel. There is a hernia in the anterior pelvic wall containing small bowel loop with decompression of the efferent loop suspicious for site of obstruction. There is also stranding in the fat possibly representing incarceration. Postop changes status post resection of the rectosigmoid with descending colostomy in left lower quadrant.. No evidence for acute appendicitis. Mild atherosclerotic changes of aorta without evidence for aneurysm. Normal inferior vena cava. Normal retroperitoneum. Normal urinary bladder. Nonspecific enlargement of the prostate Normal abdominal wall. Lumbar spine demonstrates mild degenerative change. 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 Recommend clinical correlation and follow-up studies Tiny noncalcified nodules in the lower lobes and small solid nodules in the liver of indeterminate etiology. Cannot exclude metastatic disease.. MRI of the liver would be helpful for further assessment if indicated Status post distal colonic resection and descending colostomy Electronically Signed: David Francisco MD at 17:25 EDT ,
--- NOTE | 2022-01-23 15:47 | ED.VIS.GI ---
HPI HPI - GI History of Present Illness Chief Complaint: Abd Pain Detail of Chief Complaint: No flatus or stool since last evening Informant: patient Abdominal Pain/Flank Pain Onset: Yesterday Context: Sudden Onset Timing: Continuous Quality: Aching and Cramping Location: Diffuse Current Severity: Moderate Maximum Severity: Severe Worsened by: Nothing; Not Worsened By Food or Movement Relieved by: Nothing Nausea/Vomiting/Emesis GI Symptom: Positive for Nausea; Negative for Vomiting Diarrhea/Melena/Hematochezia GI Symptom: Negative for Diarrhea, Melena or Hematochezia Associated Symptoms Associated Symptoms: Negative for Dysuria, Frequency, Hematuria or Urgency Narrative Narrative: Patient is a 71-year-old male with history of colorectal cancer status post colostomy who presents with abdominal distention, cramping pain with increased bowel sounds and no flatus or stool in his colostomy bag since last evening. He initially reported diarrhea and thought he ate tainted broccoli. No one else is ill. He has had multiple abdominal surgeries. He has been seen by Dr. Mekhi Bradshaw in the past. His colorectal surgery was performed at [facility]. His sanding machine operator or tender is Dr. Panda. Prior similar symptoms: No Recent Illness/Hospitalization: No PFSH PFSH Medical History ABDOMINAL PERINEAL RESETION OF SIGMOID Colostomy in place DISSECTED URETHRA Encounter for screening for malignant neoplasm of lung in current smoker with 30 pack year history or greater Hypertension Rectal cancer Rectal mass Suprapubic catheter Tobacco use disorder, continuous Home Medications lisinopril 20 mg tablet 20 mg PO BID 01/22/14 [History Last Taken 01/23/22] indapamide 1.25 mg tablet 1.25 mg PO QAM 01/17/19 [History Last Taken 01/23/22] atorvastatin 10 mg tablet 10 mg PO DAILY 02/18/21 [History Last Taken 01/23/22] glipizide 10 mg tablet, extended release 24 hr 10 mg PO QHS 01/23/22 [History Last Taken 01/22/22] levothyroxine 125 mcg tablet (Synthroid) 125 mcg PO DAILY 01/23/22 [History Last Taken 01/23/22] Allergy/AdvReac Type Severity Reaction Status Date / Time No Known Allergies Allergy Verified 01/23/22 15:33 Family History Mother Heart disease Myocardial infarction Hypertension Social History (Updated 01/23/22 @ 15:[address] Lloyd Bennett MD) household members: spouse Smoking Status: Current every day smoker tobacco type: cigarettes Tobacco: How many years used: 51 Electronic Cigarette Use: not used second hand exposure: Yes quit status: has quit before counseling given: provider counseling ROS ROS ED Constitutional Constitutional ED: Denies chills, fever(s), subjective, sweats or weight loss ENT ENT ED: Denies ear pain, rhinorrhea or sore throat Cardiovascular Cardiovascular: Denies chest pain, orthopnea, palpitations, paroxysmal nocturnal dyspnea or racing heartbeat Respiratory/Chest Respiratory/Chest: Denies cough, dyspnea, dyspnea on exertion, orthopnea, paroxysmal nocturnal dyspnea or sputum Gastrointestinal Gastrointestinal: Reports abdominal pain, constipation and nausea; Denies diarrhea, melena or vomiting Genitourinary Genitourinary ED: Denies dysuria, hematuria or urinary frequency Musculoskeletal Musculoskeletal: Denies arthralgias, back pain, myalgias or neck pain Integumentary Denies abscess, Abrasions or rash Neurologic Neurologic: Denies headache(s), paresthesias or weakness Endocrine Endocrinology: Denies polydipsia, polyphagia or polyuria Hematologic/Lymphatic Hematologic/Lymphatic: Denies easy bleeding or easy bruising EXAM Physical Exam Const Vital Signs: 01/23/22 15:32 Temperature 97.5 F L Temperature Source Temporal Pulse Rate 65 Respiratory Rate 18 Blood Pressure 168/94 H Blood Pressure Mean 118 Pulse Ox 98 Oxygen Delivery Method Room Air Positive well nourished, well developed and obese; Negative for cachectic, contractures or unkempt Constitutional Narrative: Patient appears uncomfortable. His abdomen is distended. General Appearance ED: well developed; Negative for unkempt, cachectic, contractures or pallor Nutritional Appearance: obese; Negative for cachectic HEENT Reports TM's clear and dry mucous membranes HEENT Narrative: Nares patent. Ears normal. normocephalic and atraumatic Tympanic Membrane ED: Yes TM's clear Mouth ED: Yes dry mucous membranes Mouth: dry mucous membranes Eyes PERRL and EOMs intact bilaterally General Eye ED: Negative for pale conjunctiva or scleral icterus Neck no lymphadenopathy, supple and no JVD Resp normal respiratory effort and clear to auscultation bilaterally Cardio regular rate, regular rhythm, S1 normal heart sound, S2 normal heart sound and no murmurs GI Negative for non-tender, non-distended or no masses GI Narrative: There is a palpable mass superior to the colostomy. There is no gas or fecal matter in the colostomy bag. Patient states there is been none since last evening. Inspection: abdominal distention Auscultation: hyperactive bowel sounds Palpation: tender and guarding LUQ; Negative for soft, hepatomegaly or splenomegaly Back/Spine no CVA tenderness Extremity full ROM General Extremety ED: Negative for edema or tenderness General Extremity: Negative for edema Neuro CN's II-XII intact bilaterally, moves all extremities and no sensory deficits noted Sensorium / Orientation: alert Motor Exam: strength 5/5 throughout Psych mental status grossly normal and thought process normal Appearance: Negative for unkempt Skin no wounds General Skin Exam: Negative for jaundice or pallor Lesions: no lesions Rashes: no rashes MDM MDM MDM Narrative Medical decision making narrative: With history of colorectal cancer, multiple abdominal surgeries and complaint of distention with no flatus or stool in the colostomy bag suspect patient has a bowel obstruction. Patient was made NPO. Proper labs ordered. CT of the abdomen was obtained. Doubt ileus. Since there is a palpable mass need to consider recurrence. 1 L of normal saline was ordered. 4 mg of Zofran was ordered for his nausea. Patient was informed he would need an NG. After NG was placed he said the pain resolved. He now has stool in his colostomy bag. The palpable mass is no longer palpable. Suspect that his incarcerated hernia or he has spontaneously reduced. Case was discussed with Dr. Redding who is on-call for surgery. She asked that I speak with the hospitalist for admission to the hospitalist service since she will not be operating on this gentleman. Lab Data Attestation: I reviewed the patient's lab results. Lab results narrative: White count is slightly elevated from baseline. Hemoglobin slightly elevated from baseline. Competence metabolic panel is unremarkable. Blood sugar is slightly elevated 163. Labs: Laboratory Results - last 24 hr 01/23/22 01/23/22 15:57 15:57 WBC 12.5 H RBC 5.41 Hgb 16.3 Hct 48.1 MCV 88.9 MCH 30.1 MCHC 33.9 RDW Std Deviation 44.0 H RDW Coeff of Ewa 13.6 Plt Count 173 MPV 11.0 Immature Gran % (Auto) 0.400 Neut % (Auto) 83.3 H Lymph % (Auto) 11.5 L [place] % (Auto) 4.3 Eos % (Auto) 0.2 Baso % (Auto) 0.3 Absolute Neuts (auto) 10.4 H Absolute Lymphs (auto) 1.44 Nucleated RBC % 0 Sodium 140 Potassium 4.2 Chloride 106 Carbon Dioxide 28.0 Anion Gap 6 BUN 15 Creatinine 1.07 Estim Creat Clear Calc 57.49 Est GFR (MDRD) Af Amer 87 Est GFR (MDRD) Non-Af 72 BUN/Creatinine Ratio 14.0 Glucose 163 H Calcium 10.1 Total Bilirubin 0.90 Direct Bilirubin 0.15 AST 27 ALT 28 Alkaline Phosphatase 77 Total Protein 7.7 Albumin 3.5 Globulin 4.2 Lipase 121 Radiography Diagnostic Testing: Clinical Impression(s) from Imaging Studies Abdomen/Pelvis CT 01/23/22 15:45 IMPRESSION: Findings suggestive of moderate to severe small bowel obstruction proximal to hernia in the anterior pelvic wall with possible associated incarceration. Recommend clinical correlation and follow-up studies Tiny noncalcified nodules in the lower lobes and small solid nodules in the liver of indeterminate etiology. Cannot exclude metastatic disease.. MRI of the liver would be helpful for further assessment if indicated Status post distal colonic resection and descending colostomy Electronically Signed: David Francisco MD at 17:25 EDT , KUB X-Ray 01/23/22 17:20 IMPRESSION: NG tube placement in the distal esophagus and should be advanced. Electronically Signed: David Francisco MD at 18:27 EDT , CT of the abdomen with IV contrast appears to indicate patient has not obstruction. Will await formal read by radiologist per Discharge Plan Dx/Rx/DC Orders Clinical Impression: Partial obstruction of small intestine, Incarcerated ventral hernia, Acute hyperglycemia Disposition Disposition: Acute Care [facility]
[2022-01-23] MEDS: Ondansetron 4 MG/2 ML Vial IV (15:55)
[2022-01-23] MEDS: 0.9% Normal Saline 1,000 ML 1000 ML IV (15:55)
[2022-01-23 16:02] LABS: Absolute Lymphocyte Count 1.44 X10^3/uL (0.83-4.51); Absolute Neutrophil Count 10.4 X10^3/uL (2.0-7.7); Basophil# 0.04 X10^3/uL; Basophil% 0.3 % (0-1); Eosinophil# 0.03 X10^3/uL; Eosinophils% 0.2 % (0-5); Hematocrit 48.1 % (40-54); Hemoglobin 16.3 g/dL (13.0-16.5); Lymphocyte # 1.44 X10^3/ul (0.83-4.51); Lymphocyte % 11.5 % (19-41); Mean Corp Hgb Conc 33.9 g/dL (32-36); Mean Corpuscular Hgb 30.1 pg (27.0-32.0); Mean Corpuscular Volume 88.9 fL (80-94); Monocyte# 0.54 X10^3/uL; Monocyte% 4.3 % (0-10); NRBC Flagged by Analyzer 0 % (0-5); Neutrophil # 10.41 X10^3/uL (2.7-7.7); Neutrophil % 83.3 % (47-70); Platelet Count 173 K/mm3 (150-450); RBC Distribution Width CV 13.6 % (11.6-14.6); Red Blood Count 5.41 M/mm3 (4.6-6.2); White Blood Count 12.5 K/mm3 (4.4-11.0)
[2022-01-23 16:24] LABS: AST(SGOT) 27 U/L (15-37); Alanine Aminotransfer ALT/SGPT 28 U/L (16-61); Albumin, Serum 3.5 g/dL (3.2-5.0); Alkaline Phosphatase 77 U/L (45-117); Anion Gap 6 (5-15); BUN 15 mg/dL (7-18); Bilirubin, Direct 0.15 mg/dL (0.00-0.30); Calcium,Total 10.1 mg/dL (8.5-10.1); Chloride 106 mmol/L (98-107); Creatinine, Serum 1.07 mg/dL (0.70-1.30); EST Glomerular Filtration Rate 72 mL/min (>60); Est Glom Filt Rate - Afr Amer 87 mL/min (>60); Estimated Creatinine Clearance 57.49 ml/min; Globulin 4.2 g/dL (2.2-4.2); Glucose 163 mg/dL (74-106); Lipase 121 U/L (73-393); Potassium 4.2 mmol/L (3.5-5.1); Protein, Total 7.7 g/dL (6.4-8.2); Sodium Level 140 mmol/L (136-145)
[2022-01-23] MEDS: Lidocaine Jelly 2% 20 ML Syringe (URO-JET) 1 APPLIC TOPICAL (17:09)
--- NOTE | 2022-01-23 17:20 | RAD_ITS ---
STUDY: X-RAY - ABDOMEN/PELVIS REASON FOR EXAM: Male, 71 years old. NG Insertion TECHNIQUE: KUB COMPARISON: None. FINDINGS: Normal visualized lung bases. There is an unremarkable bowel gas pattern. There is no demonstrated free abdominal air. The visualized liver, spleen and kidneys are grossly normal in size and morphology. Normal soft tissue structures. Normal visualized osseous structures. NG tube noted terminating in the distal esophagus and should be advanced RAD/Abdomen Single View (Portable) IMPRESSION: NG tube placement in the distal esophagus and should be advanced. Electronically Signed: David Francisco MD at 18:27 EDT ,
--- NOTE | 2022-01-23 18:27 | PCM.HP.STD ---
HPI - General General Date of Admission: 01/23/22 Date of Service: 01/23/22 Chief Complaint: Abdominal pain, distention, no flatus or ostomy output since yesterday evening. HPI Narrative The patient is a 71 y/o M w/ PMHx: Tobacco use, Diabetes mellitus type II, HTN, HLD, Hypothyroidism, Hx Rectal Cancer (Adenocarcinoma) diagnosed 2014 s/p chemoradiation with eventual resection with colostomy creation, Hx prior SBO secondary to incarcerated hernia with prior reported repair with mesh who presents to the [facility] ED on 01/23/22 with history of onset the evening prior progressively worsening abdominal cramping, distention and lack of flatus as well as ostomy outpatient which has been preceded by loose stools into the ostomy which continued into day of presentation and progressively worsening prompting ED evaluation. Patient reported that initially his abdominal pain and discomfort had been 6-7 out of 10 in severity however since resolution of the incarcerated hernia he reports only a mild aching, 1-2 out of 10. Work-up in the ED included T97.5, heart rate 65, BP 168/94, respiratory rate 18, 98% on room air, CBC with WBC 12.5, hemoglobin 16.3, platelet 173 with left shift, CMP with glucose 163 otherwise unremarkable, lipase 121, CT abdomen and pelvis with findings suggestive of moderate to severe small bowel obstruction proximal to the hernia in the anterior pelvic wall with possible associated incarceration. In the ED patient ministered normal saline bolus as well as Zofran. NG tube placed. While in the emergency room patient had sudden improvement in abdominal pain, distention and notable onset of flatus and bowel movement into his ostomy bag. ED physician discussed case with general surgery recommended admission for close observation. [facility] Medical History (Updated 01/23/22 @ 18:[address] Kalli Salcedo MD) ABDOMINAL PERINEAL RESETION OF SIGMOID Colostomy in place DISSECTED URETHRA Encounter for screening for malignant neoplasm of lung in current smoker with 30 pack year history or greater Hypertension Rectal cancer Suprapubic catheter Tobacco use disorder, continuous Home Medications lisinopril 20 mg tablet 20 mg PO BID 01/22/14 [History Last Taken 01/23/22] indapamide 1.25 mg tablet 1.25 mg PO QAM 01/17/19 [History Last Taken 01/23/22] atorvastatin 10 mg tablet 10 mg PO DAILY 02/18/21 [History Last Taken 01/23/22] glipizide 10 mg tablet, extended release 24 hr 10 mg PO QHS 01/23/22 [History Last Taken 01/22/22] levothyroxine 125 mcg tablet (Synthroid) 125 mcg PO DAILY 01/23/22 [History Last Taken 01/23/22] Allergy/AdvReac Type Severity Reaction Status Date / Time No Known Allergies Allergy Verified 01/23/22 15:33 Family History Mother Heart disease Myocardial infarction Hypertension Surgical History (Updated 01/23/22 @ 18:[address] Kalli Salcedo MD) History of bladder surgery History of bowel resection History of hernia repair History of rectal surgery Social History (Updated 01/23/22 @ 15:[address] Lloyd Bennett MD) household members: spouse Smoking Status: Current every day smoker tobacco type: cigarettes Tobacco: How many years used: 51 Electronic Cigarette Use: not used second hand exposure: Yes quit status: has quit before counseling given: provider counseling ROS ROS Narrative Admission Review of Systems: CONSTITUTIONAL: No weight loss, fever, chills, + weakness or fatigue. HEENT: Eyes: No visual loss, blurred vision, double vision or yellow sclerae. Ears, Nose, Throat: No hearing loss, sneezing, congestion, runny nose or sore throat. SKIN: No rash or itching, lesions, wounds. CARDIOVASCULAR: No chest pain, chest pressure or chest discomfort, palpitations, edema, orthopnea, syncopal events. RESPIRATORY: No shortness of breath, cough or sputum, wheezing, hemoptysis. GASTROINTESTINAL: + anorexia, nausea without vomiting, burst loose stool in ostomy, abdominal pain, abdominal distention, lack flatus and eventual lack BM in ostomy, No melena, BRBPR. GENITOURINARY: + Hx urethral injury during OR w/ Hx suprapubic catheter. No dysuria, frequency, urgency or retention. NEUROLOGICAL: + Chronic BL LE weakness secondary to muscle resection for rectal surgery. No headache, dizziness, syncope, paralysis, ataxia, numbness or tingling in the extremities, change in bowel or bladder control, seizure. MUSCULOSKELETAL: + muscle, back pain, joint pain or stiffness. HEMATOLOGIC: No anemia, bleeding or bruising. LYMPHATICS: No enlarged nodes. No history of splenectomy. PSYCHIATRIC: No history of depression or anxiety. ENDOCRINOLOGIC: No reports of sweating, cold or heat intolerance. No polyuria or polydipsia. ALLERGIES: No history of asthma, hives, eczema or rhinitis. Vital Signs Vital Signs Vital Signs: 01/23/22 15:32 Temperature 97.5 F L Temperature Source Temporal Pulse Rate 65 Respiratory Rate 18 Blood Pressure 168/94 H Blood Pressure Mean 118 Pulse Ox 98 Oxygen Delivery Method Room Air Weight Weight: 238 lb 1.588 oz Body Mass Index (BMI) 36.7 Physical Exam Narrative Physical Examination: General: Awake, alert, oriented x 3 and cooperative, seated upright in the ED bed, notes feeling incredibly improved, notes still some aching of the belly but pain nearly resolved and bowel movements and flatus ongoing. Skin: Normal color, normal turgor, no icterus, no cyanosis. HEENT: AT/NC, EOMI, PERRLA, mildly dry MM, no carotid bruits or JVD noted. Lungs: Mildly diminished, decreased bases, poor effort, occasional very scant end expiratory wheeze. Heart: Currently regular rate and rhythm; no gallop, rub audible. Abdomen: Soft, still some discomfort near the stoma with palpation, bowel sounds in all quadrants, notes distention is improved since his initial onset and ED presentation, currently there is stool and flatus in the ostomy bag, no obvious HSM. Extremities: No cyanosis, clubbing, or edema. Neurological: Patient awake, alert, oriented as noted cognitive function intact; pupils equally reactive to light and accommodation, cranial nerves II-XII grossly normal, moving all 4 extremities, no focal deficits, strength improved, mildly global decrease. Psychiatric: Affect appears improved, normal, no acute evidence of depressive or anxiety feelings. Results Lab / Micro Data Result Diagrams: 01/23/22 15:57 01/23/22 15:57 Labs: Laboratory Results - last 24 hr 01/23/22 15:57: WBC 12.5 H, RBC 5.41, Hgb 16.3, Hct 48.1, MCV 88.9, MCH 30.1, MCHC 33.9, RDW Std Deviation 44.0 H, RDW Coeff of Ewa 13.6, Plt Count 173, MPV 11.0, Immature Gran % (Auto) 0.400, Neut % (Auto) 83.3 H, Lymph % (Auto) 11.5 L, [place] % (Auto) 4.3, Eos % (Auto) 0.2, Baso % (Auto) 0.3, Absolute Neuts (auto) 10.4 H, Absolute Lymphs (auto) 1.44, Nucleated RBC % 0 01/23/22 15:57: Sodium 140, Potassium 4.2, Chloride 106, Carbon Dioxide 28.0, Anion Gap 6, BUN 15, Creatinine 1.07, Estim Creat Clear Calc 57.49, Est GFR (MDRD) Af Amer 87, Est GFR (MDRD) Non-Af 72, BUN/Creatinine Ratio 14.0, Glucose 163 H, Calcium 10.1, Total Bilirubin 0.90, Direct Bilirubin 0.15, AST 27, ALT 28, Alkaline Phosphatase 77, Total Protein 7.7, Albumin 3.5, Globulin 4.2, Lipase 121 Radiology Impression Abdomen/Pelvis CT 01/23/22 15:45 IMPRESSION: Findings suggestive of moderate to severe small bowel obstruction proximal to hernia in the anterior pelvic wall with possible associated incarceration. Recommend clinical correlation and follow-up studies Tiny noncalcified nodules in the lower lobes and small solid nodules in the liver of indeterminate etiology. Cannot exclude metastatic disease.. MRI of the liver would be helpful for further assessment if indicated Status post distal colonic resection and descending colostomy Electronically Signed: David Francisco MD at 17:25 EDT Reading Location ID and State: [address] [place] [address] , Service support , Assessment & Plan Assessment/Plan (1) SBO (small bowel obstruction): (2) History of bowel resection: (3) History of rectal surgery: PLAN: Plan The patient is a 71 y/o M w/ PMHx: Tobacco use, Diabetes mellitus type II, HTN, HLD, Hypothyroidism, Hx Rectal Cancer (Adenocarcinoma) diagnosed 2014 s/p chemoradiation with eventual resection with colostomy creation, Hx prior SBO secondary to incarcerated hernia with prior reported repair with mesh who presents to the [facility] ED on 01/23/22 with history of onset the evening prior progressively worsening abdominal cramping, distention and lack of flatus as well as ostomy outpatient which has been preceded by loose stools into the ostomy which continued into day of presentation and progressively worsening prompting ED evaluation. #1. Abdominal pain, distention, pain secondary to complicated SBO associated with parastomal incarcerated hernia, resolved with prior similar history, complicated by #2: Will admit to medical surgical floor to be cautious, maintain on IVFs, continue NGT to suction until cleared for discontinuation by general surgery, strict I&Os, IV pain/anti-emetics PRN, serial KUB as needed to montior bowel function, Famotidine IV, maintain NPO on bowel rest. General surgery, Dr. Garcia consulted. #2. History of rectal cancer/adenocarcinoma: Patient per records diagnosed 2013 s/p chemoradiation with history of reportedly rectal bleeding x2 years with initially refusal of colostomy and resection however eventually underwent intervention with colostomy 2014, considered in remission, encourage continued outpatient follow-up with [facility] oncology. #3. Diabetes mellitus type II: Holding all regimen given n.p.o. status with NG tube in place, continue n.p.o. status, obtain every 6 accu checks w/ ISS until cleared for oral intake and NG tube removed. #4. Hypertension: Holding all oral regimen given acute presentation as noted, as needed IV hydralazine in interim. #5. Hyperlipidemia: We will hold statin therapy. #6. Tobacco Abuse: Encouraged cessation, inpatient consultation per RT, NR if desired. #7. Obesity: Weight loss and lifestyle changes encouraged. #8. Hypothyroidism: We will temporarily hold patient's Synthroid regimen, if prolonged NPO status arises may consider one half dose IV supplementation. #9. DVT prophylaxis: SCDs, lovenox. Charges/Coding Visit Charges OBSV E&M: 96940 Initial observation care L3
[2022-01-23 18:58] VITALS: BP 168/94; PULSE 65; RESP 18; TEMP 36.4; O2SAT 98
[2022-01-23 19:58] VITALS: BMI 35.9
[2022-01-23 19:59] VITALS: BP 155/88; PULSE 57; RESP 18; TEMP 36.7; O2SAT 99
[2022-01-23] MEDS: 0.9% Normal Saline 1,000 ML 100 ML IV (20:40)
[2022-01-23] MEDS: 0.9% Saline Lock 10 ML Syringe IV ×2 (20:40→21:31)
--- NOTE | 2022-01-23 20:46 | RAD_ITS ---
STUDY: X-RAY - ABDOMEN/PELVIS REASON FOR EXAM: Male, 71 years old. ngt placement TECHNIQUE: KUB COMPARISON: None. FINDINGS: Normal visualized lung bases. Multiple distended loops of small bowel within the upper to mid abdomen.. There is no demonstrated free abdominal air. The visualized liver, spleen and kidneys are grossly normal in size and morphology. Nasogastric tube noted with tip in the distal gastric body. Normal soft tissue structures. Normal visualized osseous structures. RAD/Abdomen Single View (Portable) IMPRESSION: Nonspecific bowel distention status post NG tube placement with tip in distal stomach Electronically Signed: David Francisco MD at 21:50 EDT ,
[2022-01-23] MEDS: Famotidine 200 MG/20 ML MDV 20 MG in 0.9% Normal Saline (Pres. free 8 ML 300 MG IV (21:28)
[2022-01-23] MEDS: Insulin Lispro 100 UNIT/ML INSULN.PEN SC (21:29)
--- NOTE | 2022-01-23 22:46 | NURSING ---
Late entry - 2034 - NGT advanced 15cm per MD order. Pt tolerated well. Will obtain KUB.
[2022-01-23 23:20] LABS: Bedside Glucose 155 mg/dL (74-106)
[2022-01-24 02:00] VITALS: BP 130/71; PULSE 59; RESP 14; TEMP 36.6; O2SAT 94
[2022-01-24 02:51] LABS: Bedside Glucose 137 mg/dL (74-106)
--- NOTE | 2022-01-24 04:22 | EX.PCM.CON.S ---
Assessment & Plan Assessment/Plan (1) Partial obstruction of small intestine: (2) Rectum cancer: (3) History of incisional hernia repair: (4) Recurrent incisional hernia: PLAN: Plan Currently patient denies abdominal pain. NG has minimal in the canister. Patient does have flatus in his colostomy no stool since in the ER. The lower midline incisional recurrent hernia appears to be reducible on exam. No appreciable parastomal hernia on exam currently. We will plan for a modified small bowel follow-through to better evaluate if the partial bowel obstruction is completely resolved. Patient was agreeable with plan. Emily Garcia M.D. Pager: [phone] [facility] [address] [place] [address], [facility], [address] [place] [address] Office: [phone] HPI Consult Data Date of Consult: 01/24/22 HPI Narrative HPI Narrative: AUBREY KARIMI, is a 71 M who admitted due to partial small bowel obstruction. Patient has a significant past medical history for APR when he was 64 years old for rectal cancer after having chemo and radiation. Patient states that initially he did go out to eat on and had diarrhea filled his bag about 3 times on Wednesday initially did not have any stool but then started having increased abdominal pain and thus he went to the ER. In the ER patient had the NG placed and states that around his colostomy site and upper abdomen noticed rock hard after some pushing on this area per the ER doctor patient did have liquid stool out his colostomy and his abdominal pain did resolve.NG has minimal in the canister. Patient denies much abdominal pain. Patient had a similar episode in August 2020 and he went to [facility] and had hernia repair for the lower incarcerated hernia with Vicryl mesh by Dr. Mercado. Patient CT abdomen pelvis does show a parastomal hernia which is similar to 2000 he also has a recurrent hernia inferiorly where his previous repair was done. Patient denies having much pain at the inferior site and states most of his pain previously to coming to the ER was near the stoma site. [facility] Medical History (Updated 01/24/22 @ 04:[address] Emily Garcia MD) ABDOMINAL PERINEAL RESETION OF SIGMOID Colostomy in place Diabetes DISSECTED URETHRA Encounter for screening for malignant neoplasm of lung in current smoker with 30 pack year history or greater Hypertension Rectal cancer Suprapubic catheter Tobacco use disorder, continuous Home Medications lisinopril 20 mg tablet 20 mg PO BID 01/22/14 [History Last Taken 01/23/22] indapamide 1.25 mg tablet 1.25 mg PO QAM 01/17/19 [History Last Taken 01/23/22] atorvastatin 10 mg tablet 10 mg PO DAILY 02/18/21 [History Last Taken 01/23/22] glipizide 10 mg tablet, extended release 24 hr 10 mg PO QHS 01/23/22 [History Last Taken 01/22/22] levothyroxine 125 mcg tablet (Synthroid) 125 mcg PO DAILY 01/23/22 [History Last Taken 01/23/22] Allergy/AdvReac Type Severity Reaction Status Date / Time No Known Allergies Allergy Verified 01/23/22 15:33 Family History Mother Heart disease Myocardial infarction Hypertension Surgical History (Updated 01/24/22 @ 04:[address] Emily Garcia MD) History of bladder surgery History of bowel resection History of incisional hernia repair History of rectal surgery Social History (Updated 01/23/22 @ 15:[address] Lloyd Bennett MD) household members: spouse Smoking Status: Current every day smoker tobacco type: cigarettes Tobacco: How many years used: 51 Electronic Cigarette Use: not used second hand exposure: Yes quit status: has quit before counseling given: provider counseling ROS Constitutional Constitutional: Denies anorexia or fever(s) Respiratory/Chest Respiratory/Chest: Denies shortness of breath at rest Gastrointestinal Gastrointestinal: Reports abdominal pain, bloating, constipation, diarrhea and nausea; Denies vomiting Genitourinary Genitourinary: Denies dysuria Musculoskeletal Musculoskeletal: Denies difficulty walking Integumentary Integumentary: Denies rash Neurologic Neurologic: Denies focal weakness Psychiatric Psychiatric: Denies depression Hematologic/Lymphatic Hematologic/Lymphatic: Denies easy bleeding Physical Exam Const alert, oriented x3 and no apparent distress HEENT normocephalic and head/scalp atraumatic Resp normal respiratory effort Cardio regular rate GI soft to palpation; Negative for non-distended GI Narrative: Patient's left colostomy pink with gas in the bag Palpation: hernia other (Inferior midline hernia reducible, parastomal hernia unable to directly appreciate on exam due to either being decompressed or reduced); Negative for tender or guarding Extremity no clubbing, cyanosis or edema Neuro CN's II-XII intact bilaterally Psych mental status grossly normal Lab / Micro Data Result Diagrams: 01/23/22 15:57 01/23/22 15:57 Labs: Laboratory Results - last 24 hr 01/23/22 15:57: WBC 12.5 H, RBC 5.41, Hgb 16.3, Hct 48.1, MCV 88.9, MCH 30.1, MCHC 33.9, RDW Std Deviation 44.0 H, RDW Coeff of Ewa 13.6, Plt Count 173, MPV 11.0, Immature Gran % (Auto) 0.400, Neut % (Auto) 83.3 H, Lymph % (Auto) 11.5 L, [place] % (Auto) 4.3, Eos % (Auto) 0.2, Baso % (Auto) 0.3, Absolute Neuts (auto) 10.4 H, Absolute Lymphs (auto) 1.44, Nucleated RBC % 0 01/23/22 15:57: Sodium 140, Potassium 4.2, Chloride 106, Carbon Dioxide 28.0, Anion Gap 6, BUN 15, Creatinine 1.07, Estim Creat Clear Calc 57.49, Est GFR (MDRD) Af Amer 87, Est GFR (MDRD) Non-Af 72, BUN/Creatinine Ratio 14.0, Glucose 163 H, Calcium 10.1, Total Bilirubin 0.90, Direct Bilirubin 0.15, AST 27, ALT 28, Alkaline Phosphatase 77, Total Protein 7.7, Albumin 3.5, Globulin 4.2, Lipase 121 01/23/22 21:11: POC Glucose 155 H 01/24/22 02:26: POC Glucose 137 H Radiology Impression Abdomen/Pelvis CT 01/23/22 15:45 IMPRESSION: Findings suggestive of moderate to severe small bowel obstruction proximal to hernia in the anterior pelvic wall with possible associated incarceration. Recommend clinical correlation and follow-up studies Tiny noncalcified nodules in the lower lobes and small solid nodules in the liver of indeterminate etiology. Cannot exclude metastatic disease.. MRI of the liver would be helpful for further assessment if indicated Status post distal colonic resection and descending colostomy Electronically Signed: David Francisco MD at 17:25 EDT , KUB X-Ray 01/23/22 17:20 IMPRESSION: NG tube placement in the distal esophagus and should be advanced. Electronically Signed: David Francisco MD at 18:27 EDT , KUB X-Ray 01/23/22 20:46 IMPRESSION: Nonspecific bowel distention status post NG tube placement with tip in distal stomach Electronically Signed: David Francisco MD at 21:50 EDT , Charges/Coding Visit Charges Inpatient E&M: 07499 Init Hosp L3
--- NOTE | 2022-01-24 04:47 | RAD_ITS ---
CLINICAL HISTORY: Male, 71 years old. Small bowel follow-through study PROCEDURE: Small bowel follow-through performed with GASTROGRAFIN through the NG tube CONSENT: Informed consent obtained FLUOROSCOPY TIME (if supplied): ( ) minutes/seconds, 13 images obtained TECHNIQUE: (All elements of maximal sterile barrier technique followed, including US elements as applicable) Car [employer] Hel[employer] films demonstrates NG tube tip in the distal stomach. GASTROGRAFIN was injected through the NG tube. Serial films tract GASTROGRAFIN through the intestine. Nondistended air-filled and contrast-filled bowel loops in all 4 quadrants of the abdomen consistent with ileus. There is no demonstrated obstruction as colon is visualized at 60 minutes. No demonstrated free air or extravasation of contrast outside the lumen of the intestines. RAD/Small Bowel Series Only IMPRESSION: Small bowel ileus Electronically Signed: Wesley Simmons MD at 9:10 EDT ,
[2022-01-24] MEDS: Morphine 2 MG/ML Syringe IV (07:19)
[2022-01-24] MEDS: 0.9% Saline Lock 10 ML Syringe IV (07:20)
[2022-01-24 08:05] LABS: Absolute Lymphocyte Count 1.45 X10^3/uL (0.83-4.51); Absolute Neutrophil Count 5.9 X10^3/uL (2.0-7.7); Basophil# 0.04 X10^3/uL; Basophil% 0.5 % (0-1); Eosinophil# 0.03 X10^3/uL; Eosinophils% 0.4 % (0-5); Hematocrit 45.8 % (40-54); Hemoglobin 15.6 g/dL (13.0-16.5); Lymphocyte # 1.45 X10^3/ul (0.83-4.51); Lymphocyte % 18.2 % (19-41); Mean Corp Hgb Conc 34.1 g/dL (32-36); Mean Corpuscular Hgb 30.8 pg (27.0-32.0); Mean Corpuscular Volume 90.5 fL (80-94); Mean Platelet Vol. 10.9 fl (6.2-12.0); Monocyte# 0.51 X10^3/uL; Monocyte% 6.4 % (0-10); NRBC Flagged by Analyzer 0 % (0-5); Neutrophil # 5.91 X10^3/uL (2.7-7.7); Neutrophil % 74.1 % (47-70); Platelet Count 134 K/mm3 (150-450); RBC Distribution Width CV 13.7 % (11.6-14.6); RBC Distribution Width SD 45.4 fl (35.1-43.9); Red Blood Count 5.06 M/mm3 (4.6-6.2)
[2022-01-24 08:08] VITALS: BP 143/87; PULSE 52; RESP 18; TEMP 36.5; O2SAT 97
[2022-01-24] MEDS: 0.9% Normal Saline 1,000 ML 100 ML IV (08:10)
[2022-01-24 08:41] LABS: ALB/GLOB Ratio 0.8 RATIO (0.9-2.4); AST(SGOT) 15 U/L (15-37); Alanine Aminotransfer ALT/SGPT 25 U/L (16-61); Alkaline Phosphatase 72 U/L (45-117); Anion Gap 5 (5-15); BUN 13 mg/dL (7-18); BUN/Creat Ratio 14.1 RATIO (10-20); Chloride 110 mmol/L (98-107); Creatinine, Serum 0.92 mg/dL (0.70-1.30); EST Glomerular Filtration Rate 85 mL/min (>60); Est Glom Filt Rate - Afr Amer 103 mL/min (>60); Estimated Creatinine Clearance 69.18 ml/min; Globulin 3.9 g/dL (2.2-4.2); Glucose 144 mg/dL (74-106); Potassium 3.8 mmol/L (3.5-5.1); Protein, Total 6.9 g/dL (6.4-8.2); Sodium Level 142 mmol/L (136-145)
--- NOTE | 2022-01-24 11:25 | DS.PCM_ITS ---
Providers Date of Admission: 01/23/22 Date of Discharge: 01/24/22 Primary Care Physician: Dr. Byron Brand MD Consultations 01/23/22 20:20 Consult: General Surgery Routine Consulting Provider: Emily Garcia Reason for Consult: SBO, incarcerated hernia, recurrent, resolved in ED EMERGENT Consult: No MD Notified: Yes Date Notified: 01/23/22 Time Notified: 18:31 Method of Notification: ED Physician Initiated Reason For Visit: BOWEL OBSTRUCTION Diagnosis Discharge Diagnosis (1) Partial obstruction of small intestine: Status: Acute Code(s): K56.600 - Partial intestinal obstruction, unspecified as to cause (2) Rectum cancer: Status: Chronic Code(s): C20 - Malignant neoplasm of rectum (3) History of incisional hernia repair: Status: Acute Code(s): Z98.890 - Other specified postprocedural states; Z87.19 - Personal history of other diseases of the digestive system (4) Recurrent incisional hernia: Status: Acute Code(s): K43.2 - Incisional hernia without obstruction or gangrene Medications at Discharge Home Medications lisinopril 20 mg tablet 20 mg PO BID 01/22/14 indapamide 1.25 mg tablet 1.25 mg PO QAM 01/17/19 atorvastatin 10 mg tablet 10 mg PO DAILY 02/18/21 glipizide 10 mg tablet, extended release 24 hr 10 mg PO QHS 01/23/22 levothyroxine 125 mcg tablet (Synthroid) 125 mcg PO DAILY 01/23/22 Hospital Course Operations None Procedures - (Small bowel follow-through) Summary of Care Provided Minutes Spent on Discharge: 30 Hospital Course: Mr. Mays is a 71-year-old white male who presented to the emergency department [facility] on 01/23/2022 with abdominal pain and distention. He has a history of rectal cancer that was diagnosed in 2013 and he had neoadjuvant chemoradiation and eventual APR with colostomy creation at that time. Prior to presentation last evening he had sudden onset of progressively worsening abdominal pain/cramping and distention with lack of flatus or ostomy output. It had been preceded by loose stool in the ostomy. He reported that his initial abdominal pain was 6-7 out of 10 however it had improved prior to being seen by the admitting hospitalist. Work-up in the ED included T97.5, heart rate 65, BP 168/94, respiratory rate 18, 98% on room air, CBC with WBC 12.5, hemoglobin 16.3, platelet 173 with left shift, CMP with glucose 163 otherwise unremarkable, lipase 121, CT abdomen and pelvis with findings suggestive of moderate to severe small bowel obstruction proximal to the hernia in the anterior pelvic wall with possible associated incarceration.? In the ED patient ministered normal saline bolus as well as Zofran.? NG tube placed.? While in the emergency room patient had sudden improvement in abdominal pain, distention and notable onset of flatus and bowel movement into his ostomy bag.? ED physician discussed case with general surgery recommended admission for close observation. He was admitted to the medical floor and an NG tube was placed. NG had minimal output and the patient developed flatus with ostomy output since admission. General surgery evaluated the patient and felt that his lower midline incisional recurrent hernia was reducible on exam and had no appreciable parastomal hernia. A modified small bowel follow-through was performed and the official read suggested ileus however the patient was having bowel movements at that time and tolerating p.o. diet without any difficulty. Images were reviewed by general surgery and they felt given his clinical situation he was stable to be discharged home. Again the patient did tolerate a p.o. diet that was regular without any appreciable nausea and had continuing flatus in his ostomy bag as well as ostomy output in the form of stool. He was able to be discharged home in stable condition on 01/24/2022. Discharge diagnoses: Partial small bowel obstruction History of incisional hernia status postrepair Recurrent incisional hernia History of rectal CA DM-2 Hypertension Hyperlipidemia Obesity Hypothyroidism Suspected COPD Diabetic neuropathy Tobacco abuse Physical Exam Const alert, oriented x3, no apparent distress, healthy appearing and well nourished Constitutional Narrative: Obese, older white male, sitting up in bed watching television, appears comfortable nontoxic, very pleasant General Appearance: cooperative, comfortable, well kempt and well developed Orientation / Consciousness: awake, oriented to person, oriented to place and oriented to time Exam Limitations: no limitations Nutritional Appearance: obese HEENT normocephalic, head/scalp atraumatic and moist oral mucous membranes HEENT Narrative: Mallampati 3, no thrush, mild hearing loss Resp normal respiratory effort, no retractions, no use of accessory muscles and clear to auscultation bilaterally Resp Narrative: Diffusely diminished but clear Auscultation: Negative for crackles, rales, rhonchi or wheezes Cardio regular rate, regular rhythm, S1 normal heart sound, S2 normal heart sound, no murmurs, no rub, no gallops, no clicks and no JVD GI normal to inspection, nondistended, normoactive bowel sounds, soft to palpation, non-tender and non-distended GI Narrative: Ostomy in place with good stool output, ostomy site is pink, bowel sounds are good Extremity no clubbing, cyanosis or edema Extremity Narrative: 2+ pedal pulses Neuro oriented x3, moves all extremities and no focal motor deficits Speech: speech normal Psych affect normal Psych Narrative: Very pleasant Weight / BMI Weight Weight: 107.1 kg Body Mass Index (BMI) 35.9 ABG / Lab / Microbiology Data Result Diagrams: 01/24/22 07:31 01/24/22 07:31 Laboratory: Laboratory Results - last 24 hr 01/23/22 15:57: WBC 12.5 H, RBC 5.41, Hgb 16.3, Hct 48.1, MCV 88.9, MCH 30.1, MCHC 33.9, RDW Std Deviation 44.0 H, RDW Coeff of Ewa 13.6, Plt Count 173, MPV 11.0, Immature Gran % (Auto) 0.400, Neut % (Auto) 83.3 H, Lymph % (Auto) 11.5 L, [place] % (Auto) 4.3, Eos % (Auto) 0.2, Baso % (Auto) 0.3, Absolute Neuts (auto) 10.4 H, Absolute Lymphs (auto) 1.44, Nucleated RBC % 0 01/23/22 15:57: Sodium 140, Potassium 4.2, Chloride 106, Carbon Dioxide 28.0, Anion Gap 6, BUN 15, Creatinine 1.07, Estim Creat Clear Calc 57.49, Est GFR (MDRD) Af Amer 87, Est GFR (MDRD) Non-Af 72, BUN/Creatinine Ratio 14.0, Glucose 163 H, Calcium 10.1, Total Bilirubin 0.90, Direct Bilirubin 0.15, AST 27, ALT 2 8, Alkaline Phosphatase 77, Total Protein 7.7, Albumin 3.5, Globulin 4.2, Lipase 121 01/23/22 21:11: POC Glucose 155 H 01/24/22 02:26: POC Glucose 137 H 01/24/22 07:31: WBC 8.0, RBC 5.06, Hgb 15.6, Hct 45.8, MCV 90.5, MCH 30.8, MCHC 34.1, RDW Std Deviation 45.4 H, RDW Coeff of Ewa 13.7, Plt Count 134 L, MPV 10.9, Immature Gran % (Auto) 0.400, Neut % (Auto) 74.1 H, Lymph % (Auto) 18.2 L, [place] % (Auto) 6.4, Eos % (Auto) 0.4, Baso % (Auto) 0.5, Absolute Neuts (auto) 5.9, Absolute Lymphs (auto) 1.45, Nucleated RBC % 0 01/24/22 07:31: Sodium 142, Potassium 3.8, Chloride 110 H, Carbon Dioxide 27.0, Anion Gap 5, BUN 13, Creatinine 0.92, Estim Creat Clear Calc 69.18, Est GFR (MDRD) Af Amer 103, Est GFR (MDRD) Non-Af 85, BUN/Creatinine Ratio 14.1, Glucose 144 H, Calcium 9.0, Total Bilirubin 1.20 H, AST 15, ALT 25, Alkaline Phosphatase 72, Total Protein 6.9, Albumin 3.0 L, Globulin 3.9, Albumin/Globulin Ratio 0.8 L Radiography Diagnostic Testing: Radiology Impression Abdomen/Pelvis CT 01/23/22 15:45 IMPRESSION: Findings suggestive of moderate to severe small bowel obstruction proximal to hernia in the anterior pelvic wall with possible associated incarceration. Recommend clinical correlation and follow-up studies Tiny noncalcified nodules in the lower lobes and small solid nodules in the liver of indeterminate etiology. Cannot exclude metastatic disease.. MRI of the liver would be helpful for further assessment if indicated Status post distal colonic resection and descending colostomy Electronically Signed: David Francisco MD at 17:25 EDT , KUB X-Ray 01/23/22 17:20 IMPRESSION: NG tube placement in the distal esophagus and should be advanced. Electronically Signed: David Francisco MD at 18:27 EDT , KUB X-Ray 01/23/22 20:46 IMPRESSION: Nonspecific bowel distention status post NG tube placement with tip in distal stomach Electronically Signed: David Francisco MD at 21:50 EDT , Small Bowel X-Ray 01/24/22 04:47 IMPRESSION: Small bowel ileus Electronically Signed: Wesley Simmons MD at 9:10 EDT , Meaningful Use Info Meaningful Use Diagnoses (Choose all that apply): None applicable Discharge Plan Admission Admit Date/Time: 01/23/22 18:27 Primary Reason for Your Visit: Abdominal pain Attending Provider: Elizabeth Nagel Primary Care Provider: Byron Brand Consulting Providers: Emily Garcia ; Kalli Salcedo Discharge Orders/Prescriptions Prescriptions: Continued indapamide 1.25 mg tablet 1.25 mg PO QAM atorvastatin 10 mg tablet 10 mg PO DAILY lisinopril 20 MG tablet 20 mg PO BID Label Comments: glipizide 10 mg tablet extended release 24hr 10 mg PO QHS levothyroxine [Synthroid] 125 mcg tablet 125 mcg PO DAILY Referrals / Follow Up: Byron Brand MD [Primary Care Provider] - Within 2 Weeks Disposition Disposition (needs filled in before D/C Order can be placed): Home, Self Care Charges/Coding Visit Charges OBSV E&M: 47470 Observation care discharge
[2022-01-24 23:56] LABS: Bedside Glucose 150 mg/dL (74-106)
== END 2022-01-24 12:36 | disposition home or self-care (01) ==
LOC: ED 17:39 → MS3 01-24 06:47
PROVIDERS: Admitting Provider Family Medicine; Emergency Provider Emergency Medicine; PCP Family Medicine; Visit Provider Internal Medicine
DX: K43.3 Parastomal hernia with obstruction, without gangrene (principal); Z93.3 Colostomy status; E11.40 Type 2 diabetes mellitus with diabetic neuropathy, unspecified; E11.65 Type 2 diabetes mellitus with hyperglycemia; Z85.048 Personal history of other malignant neoplasm of rectum, rectosigmoid junction, and anus; E03.9 Hypothyroidism, unspecified; F17.210 Nicotine dependence, cigarettes, uncomplicated; I10 Essential (primary) hypertension; E66.9 Obesity, unspecified; K43.2 Incisional hernia without obstruction or gangrene; E78.5 Hyperlipidemia, unspecified; Z92.3 Personal history of irradiation; Z79.84 Long term (current) use of oral hypoglycemic drugs; Z79.899 Other long term (current) drug therapy; Z79.890 Hormone replacement therapy
CPT/HCPCS: 36415; 74018; 74177; 74250; 80048; 80053; 80076; 82962; 83690; 85025; 96361; 96365; 96375; 99218; 99285; J7030; Q9967; A4216; C1887; G0378; J2405; J3490

== ENCOUNTER → 2022-02-12 | Outpatient (CLI) | payer MEDICARE, SELFPAY ==
--- NOTE | 2022-02-12 08:37 | CT_ITS ---
STUDY: CT CHEST WITH CONTRAST REASON FOR EXAM: Male, 71 years old. LUNG NODULES ON CT ABD 01/23/22 H/O RECTUM CANCER. History of asbestos exposure. RADIATION DOSAGE (If Supplied By Facility): CTDIvol = ( 19.51 ) mGy, DLP = ( 719.95 ) mGycm TECHNIQUE: Transaxial imaging was performed with administration of 100 mL of ISOVUE-300 intravenous contrast material. Multiplanar coronal and sagittal images were reformatted. Individualized dose optimization techniques were used for this CT. COMPARISON: Comparison is made with prior examination 02/18/2021. FINDINGS: CHEST Stable 2 mm noncalcified nodule in the lateral right upper lobe seen on axial image #28. Stable 3 mm noncalcified nodule in the lateral right upper lobe as seen on axial image #62. Stable 6 mm nodule in the lateral right lower lobe as seen on axial image #85. Stable 1 cm noncalcified nodule in the medial right lower lobe as seen on axial image #60. Mild emphysematous changes. There is no demonstrated pleural abnormality. There are calcifications of the coronary arteries. Normal mediastinum. Normal hilar regions. Normal unenhanced pulmonary arteries. Normal aorta arch and descending thoracic aorta. Normal osseous structures. There is no demonstrated abnormality of the visualized upper abdomen. CT/Chest WITH Contrast IMPRESSION: Stable examination. Electronically Signed: Aung Toure MD at 10:41 EDT ,
== END | disposition home or self-care (01) ==
LOC: CT 08:35
PROVIDERS: PCP Family Medicine; Referring Provider Internal Medicine Hematology & Oncology; Visit Provider Internal Medicine Hematology & Oncology
DX: R91.8 Other nonspecific abnormal finding of lung field (principal)
CPT/HCPCS: 71260; Q9967

== ENCOUNTER → 2022-02-16 | Outpatient (CLI) | payer MEDICARE, SELFPAY ==
--- NOTE | 2022-02-13 | ASPIGT_PTH ---
PATIENT: AUBREY KARIMI LOC: CT U#:[id number] AGE/SX: 71/M ROOM: RE02/16/[address]: Dr. Carmela Epps MD : 1950 BED: DIS: 02/16/2022 SPEC #: [id number] RECD: 02/16/22 10:40 STATUS: DICK RERosie #: [id number] ASIF: 02/13/22 00:[address]: Carmela Epps DEPT: SURGICAL PATHOLOGY RECD BY: Enoc Ziegler ENTERED: 02/16/22 10:42 SP TYPE: ASP RAD OTHR DR: Dr. Byron Brand MD Tissues: Liver, NOS Procedures: PAS with Diastase (control) FNA Specimen Adequacy Trichrome (control) Special Stain Group II PAS Stain (control) Surgery Specimen Level V Retic (control) Iron Stain (control) Imprint (control) HEADER OPERATION: CT-guided liver biopsy PRE-OP DIAGNOSIS: Liver nodule TISSUE SUBMITTED: Liver 18-gauge x7 MICROSCOPIC DIAGNOSIS Liver, CT-guided core biopsy: Benign vascular perforation, consistent with hemangioma. 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 Negative for malignancy. See microscopic description and comment. SJ:moris 02/18/2022 COMMENT The specimen is evaluated at the time of biopsy by Dr. Flores. Immediate Evaluation: Set 1 - 2 touch imprints - Negative for malignant cells. Hepatocytes noted. Set 2 - 3 touch imprints - Rare atypical cells noted. Immunohistochemistry ([id number]) supports the above diagnosis. Correlation with clinical, radiologic findings and appropriate follow up are necessary. Please make reference to previous specimen ([id number]) rectal mass, biopsy with diagnosis of ?invasive adenocarcinoma, moderately differentiated.? Case has been reviewed in consultation with Dr. Jackson who concurs with the above diagnosis. IDC:AM MICROSCOPIC DESCRIPTION Slides are reviewed. The uninvolved liver parenchymal tissue shows preserved lobular architecture. Hepatocytes in the lobules show reactive changes, focal mild macro- and microvesicular steatosis and dilatation of sinusoids. Portal area shows focal mild to moderate chronic inflammation. Interface inflammation is not seen. Iron stain shows 2+ iron in the hepatocytes. Trichrome and reticulin stains show increased portal and periportal fibrosis and focal bridging fibrosis. PAS stain with and without diastase do not show any abnormal accumulation of proteins. All stains are performed with appropriate matched controls. GROSS DESCRIPTION Received in fixative is one container labeled with the patient's name and designated liver, CT-guided core biopsy. The specimen consists of multiple elongated fragments of weiss-yellow soft tissue that in aggregate measure 2.5 x 0.5 x 0.1 cm. The specimen is totally submitted in one cassette. Five touch imprints are prepared at the time of core biopsy. / SJ:moris 02/16/2022 TC:1 CPT: 91353, 94242, 70644, 60563 x5
--- NOTE | 2022-02-13 | IMM_PTH ---
PATIENT: AUBREY KARIMI LOC: CT U#:[id number] AGE/SX: 71/M ROOM: RE02/16/[address]: Dr. Carmela Epps MD : 1950 BED: DIS: 02/16/2022 SPEC #: [id number] RECD: 02/17/22 13:36 STATUS: DICK REQ #: [id number] ASIF: 02/13/22 00:[address]: Carmela Epps DEPT: IMMUNOHISTOCHEMISTRY RECD BY: Milagros Pennington ENTERED: 02/17/22 13:38 SP TYPE: IMMUNO OTHR DR: Dr. Byron Brand MD Tissues: Liver, NOS Procedures: SMA (add) CD31 (add) DESMIN (add) FACTOR VIII (add) Vimentin (initial) S-100 (add) PHYSICIAN & INSTITUTION [place] [address] SPECIMEN INFORMATION: Tissue Source: Liver Clinical Info: Liver nodule Specimen Number: [id number] CPT code: 74294, 84862 x5 METHODOLOGY: Deparaffinized sections of prefer/formalin-fixed tissue or PAP/DQ stained slides are incubated with monoclonal/polyclonal antibodies/oligonucleotide probes. Localization is made via biotin free immunoperoxidase method. Appropriate controls are performed and reacted as expected. Results on target cell population are indicated in the following table: RESULTS: ANTIBODY / CLONE RESULT Vimentin (V9) positive CD31 (ABRAHAN/70A) positive Factor VIII (R Ag) positive Actin (1A4) positive, weak Desmin (CE-R-11) negative S-100 (4C4.9) negative These tests were developed and their performance characteristics determined by [facility]. They may not have been cleared or approved by the U.S. Food and Drug Administration. The FDA has determined that such clearance or approval is not necessary. The above immunohistochemical/dualISH markers are ordered and reviewed by the Pathologist. INTERPRETATION: Liver, CT-guided core biopsy: Benign vascular proliferation, consistent with hemangioma. SJ:moris 02/18/2022
[2022-02-16] VITALS (9 sets, daily range): BP systolic 129–177; BP diastolic 69–104; PULSE 54–62; RESP 12–20; TEMP 36.2; O2SAT 93–98; BMI 36.3
--- NOTE | 2022-02-16 08:19 | CT_ITS ---
PROCEDURE: CT DIRECTED CORE LIVER BIOPSY INDICATION: Male, [address] GUIDED LIVER NODULE BIOPSY PHYSICIAN: Dr. JOSE RAUL Anne CONSENT: Written informed consent was obtained having explained the risks, benefits and alternatives in detail with the patient who accepted the risks and agreed to proceed. Laboratory review and clinical assessment was performed. CONSCIOUS SEDATION PROTOCOL: The Drugs used were: 2 mg Versed, IV., and 50 mcg Fentanyl, IV. The sedation time was: 20 minutes. Conscious sedation was started at 9:29 AM and terminated at 9:49 AM. The conscious sedation protocol was independently monitored. RADIATION DOSAGE (If Supplied By Facility): CTDIvol = ( 23 ) mGy, DLP = ( 608 ) mGycm Individualized dose optimization techniques were used for this CT. TECHNIQUE: Using CT image guidance with image documentation, a suitable location in the anterior aspect of the left lobe of the liver was identified. Using an anterior approach, puncture of the liver was uneventful with an 18-gauge core needle system. 7, 18-gauge core samples were obtained, and submitted in formalin to the pathologist for further assessment. Followup CT scan revealed no distinct sequelae. CT/Biopsy/Inj or Needle Placement IMPRESSION: 1. CT directed core needle biopsy of the liver, using CT image guidance with image documentation as described. 2. Conscious Sedation protocol utilized with independent monitoring. Electronically Signed: Aung Toure MD at 10:14 EDT ,
[2022-02-16 08:27] LABS: Absolute Lymphocyte Count 2.11 X10^3/uL (0.83-4.51); Absolute Neutrophil Count 4.5 X10^3/uL (2.0-7.7); Basophil# 0.04 X10^3/uL; Basophil% 0.6 % (0-1); Eosinophil# 0.09 X10^3/uL; Eosinophils% 1.3 % (0-5); Hematocrit 46.8 % (40-54); Hemoglobin 15.4 g/dL (13.0-16.5); Lymphocyte # 2.11 X10^3/ul (0.83-4.51); Lymphocyte % 29.3 % (19-41); Mean Corp Hgb Conc 32.9 g/dL (32-36); Mean Corpuscular Hgb 29.8 pg (27.0-32.0); Mean Corpuscular Volume 90.5 fL (80-94); Mean Platelet Vol. 10.1 fl (6.2-12.0); Monocyte# 0.45 X10^3/uL; Monocyte% 6.3 % (0-10); NRBC Flagged by Analyzer 0 % (0-5); Neutrophil # 4.48 X10^3/uL (2.7-7.7); Neutrophil % 62.2 % (47-70); Platelet Count 157 K/mm3 (150-450); RBC Distribution Width CV 13.5 % (11.6-14.6); RBC Distribution Width SD 44.9 fl (35.1-43.9); Red Blood Count 5.17 M/mm3 (4.6-6.2); White Blood Count 7.2 K/mm3 (4.4-11.0)
[2022-02-16 09:16] LABS: International Normalized Ratio 1.1; Prothrombin Time (Protime)PT. 13.4 SECONDS (11.7-14.9)
[2022-02-16 09:17] LABS: Partial Thromboplast Time 31.6 Seconds (24.1-36.2)
[2022-02-16] MEDS: fentaNYL 100 MCG/2 ML Ampul IV (09:29)
[2022-02-16] MEDS: Midazolam 2 MG/2 ML Syringe IV (09:29)
[2022-02-16] MEDS: Lidocaine 2% (10 ml mdv) 10 ML Vial INFILT (09:39)
== END | disposition home or self-care (01) ==
PROVIDERS: PCP Family Medicine; Referring Provider Internal Medicine Hematology & Oncology; Visit Provider Internal Medicine Hematology & Oncology
DX: D18.09 Hemangioma of other sites (principal); Z85.048 Personal history of other malignant neoplasm of rectum, rectosigmoid junction, and anus
CPT/HCPCS: 47000; 36415; 77012; 85025; 85610; 85730; 88172; 88305; 88307; 88313; 88341; 88342; 99156; J7050; A4216

== ENCOUNTER → 2022-05-13 | Outpatient (CLI) | payer MEDICARE, SELFPAY ==
--- NOTE | 2022-05-13 07:52 | CT_ITS ---
STUDY: CT ABDOMEN WITH CONTRAST REASON FOR EXAM: Male, 71 years old. Follow-up liver lesions. History of colorectal cancer with colostomy. RADIATION DOSAGE (If Supplied By Facility): CTDIvol = ( 21.65 ) mGy, DLP = ( 1443.11 ) mGycm TECHNIQUE: Transaxial images were obtained post I.V. administration of IV 100mL Isovue-370, and oral contrast. Sagittal and coronal images were reconstructed. Individualized dose optimization techniques were used for this CT. COMPARISON: CT the abdomen pelvis, January 23, 2022. FINDINGS: Ovoid 4 mm nodular density in the lateral right lung base best seen on image 12 of series 2 using lung windows. On image 13 there is an irregular 6 mm nodule and the lateral left lung base. The visualized portions of the heart are within normal limits. Liver is prominent. There are multiple areas of contrast enhancement in the dome of the liver. This includes a triangular 2.1 x 1.7 cm nodule in segment 8 (image 13 of series 2 with a smaller adjacent density as well as an irregular 2.7 x 1.0 cm focal enhancement in segment 7 (image 40 there is a smaller focal hypodensity seen inferiorly. Lower in segment 8 there is a 1.2 x 1.4 cm hypodensity with vague surrounding enhancement as well as a peripheral 1 cm hypodensity with peripheral enhancement posteriorly and on image 19. Also on image 19 is a vague wedge-shaped area of increased attenuation in segment 7. There is a partially enhancing partially hypodense mass in segment 2 measuring 1.9 x 2.3 cm best seen on image 21 there is an enhancing 1.7 cm mass in segment 3 as well as a hypoechoic focus measuring 1.5 cm in the lower segment 7 with peripheral enhancement extending downward to a focal area of enhancement measuring 1.2 cm in segment 6 (image 28 and segment 5 there is an 8 mm cyst seen on segment 51. All were thought present on the January 23, 2022 film although the peripheral contrast enhancement is better seen on the arterial phase of the current study. There is evidence of isodensity on the 5 minute delayed imaging with visualization of the hypoechoic foci in the right liver. Normal gallbladder and extrahepatic biliary system. Small cyst in the upper spleen. Normal pancreas. Normal bilateral adrenal glands. Normal right kidney. Normal left kidney. No renal calculi or hydronephrosis. Normal visualized ureters. Normal visualized stomach. Normal visualized small bowel. Normal visualized colon. There is herniation of the colon into the left anterior abdominal wall and evidence of a colostomy site. The splenic flexure and left colon are not seen. The appendix is is not included. There is diffuse atherosclerotic calcification of the abdominal aorta with elongation and tortuosity, but without a demonstrated aneurysm. Normal inferior vena cava. Normal retroperitoneum. Left upper quadrant colostomy. Abdominal wall is otherwise grossly normal.. Degenerative changes of the lumbar spine. CT/Abdomen WITH IV Contrast IMPRESSION: 1. Multiple hepatic lesions. These demonstrate contrast enhancement on the arterial phase with rapid washout and areas of persistent hypodensity suggesting necrotic metastases. 2. Status post left hemicolectomy with colostomy. Electronically Signed: Kumar Rose DO at 18:02 EST Reading Location ID and State: [id number] Tel [phone], Service support ,
[2022-05-13 08:20] LABS: EGFR FINGERSTICK > 60.0000 mL/min (>60)
== END | disposition home or self-care (01) ==
LOC: CT 07:51
PROVIDERS: PCP Family Medicine; Referring Provider Internal Medicine Hematology & Oncology; Visit Provider Internal Medicine Hematology & Oncology
DX: K76.9 Liver disease, unspecified (principal); Z85.038 Personal history of other malignant neoplasm of large intestine
CPT/HCPCS: 74160; Q9967

== ENCOUNTER 2022-08-20 07:19 | Outpatient (CLI) | payer MEDICARE, SELFPAY ==
--- NOTE | 2022-08-20 07:20 | MRI_ITS ---
MR Abdomen WO/W Contrast 08/20/2022 8:00 AM COMPARISON: 05/13/2022 CLINICAL HISTORY: F/U LIVER LESIONS TECHNIQUE: Multiplanar T1 and T2 weighted, diffusion and dynamic post-gadolinium images were obtained through the abdomen. 21 cc of IV Clariscan was used. FINDINGS: Liver: There is no evidence of cirrhosis. The liver contour is smooth. There are multiple T2 hyperintense lesions throughout the liver which demonstrate peripheral gradual enhancement. These are stable to slightly decreased in size when compared to prior CT on 05/13/2022. Gallbladder: Unremarkable Spleen: Unremarkable Pancreas: Unremarkable Adrenal Glands: Unremarkable Kidneys: Unremarkable GI Tract: Status post left hemicolectomy with colostomy. Lymphadenopathy: Absent Ascites: Absent Bones: No suspicious lesions MRI/MRI Abd WITH and W/O Contrast IMPRESSION: Stable to slightly decreased size of multiple peripherally enhancing liver lesions concerning for metastases. No evidence of new metastatic disease in the abdomen or pelvis. Electronically Signed: Owen Morocho MD at 19:35 EDT ,
[2022-08-20 08:01] LABS: CREATININE FINGERSTICK 1.1 mg/dL (0.70-1.30); EGFR FINGERSTICK > 60.0000 mL/min (>60)
== END 2022-08-20 23:59 | disposition home or self-care (01) ==
LOC: MRI 07:20
PROVIDERS: PCP Family Medicine; Referring Provider Internal Medicine Hematology & Oncology; Visit Provider Internal Medicine Hematology & Oncology
DX: K76.9 Liver disease, unspecified (principal); C20 Malignant neoplasm of rectum; E11.9 Type 2 diabetes mellitus without complications; R63.4 Abnormal weight loss; K76.89 Other specified diseases of liver
CPT/HCPCS: 36415; 74183; 80053; 80061; 82043; 82378; 82570; 83036; 85025; A9575; A4216

== ENCOUNTER → 2022-08-28 | Outpatient (CLI) | payer MEDICARE, SELFPAY ==
--- NOTE | 2022-08-28 10:12 | RAD_ITS ---
STUDY: X-RAY - ACUTE ABDOMINAL SERIES REASON FOR EXAM: Male, 72 years old. Abdominal pain/constipation/colostomy TECHNIQUE: Single view of the chest. Supine, and erect view(s) of the abdomen were obtained. 6 total views obtained COMPARISON: CT from 05/13/2022 FINDINGS: Lungs are expanded with chronic interstitial changes but no superimposed acute pulmonary process. Normal size heart. Normal mediastinum and niurka. Normal visualized pulmonary arteries. Normal visualized aortic arch and descending thoracic aorta. There is a moderate amount of colonic fecal material. The soft tissue structures of the abdomen and pelvis are unremarkable. There are diffuse degenerative changes of the visualized lumbar spine. Multiple lucent centered phleboliths within the pelvis. RAD/Acute Abdomen Inc Chest IMPRESSION: Chronic interstitial changes in both lung flanagan without a superimposed acute pulmonary process. No acute abdominal or pelvic process, retained stool Electronically Signed: Wesley Simmons MD at 10:43 EDT ,
[2022-08-28 12:28] LABS: Hematocrit 49.5 % (40-54); Hemoglobin 16.5 g/dL (13.0-16.5); Mean Corp Hgb Conc 33.3 g/dL (32-36); Mean Corpuscular Hgb 30.4 pg (27.0-32.0); Mean Corpuscular Volume 91.2 fL (80-94); Mean Platelet Vol. 11.1 fl (6.2-12.0); Platelet Count 184 K/mm3 (150-450); RBC Distribution Width CV 13.6 % (11.6-14.6); RBC Distribution Width SD 45.7 fl (35.1-43.9); Red Blood Count 5.43 M/mm3 (4.6-6.2)
[2022-08-28 13:04] LABS: ALB/GLOB Ratio 0.9 RATIO (0.9-2.4); AST(SGOT) 18 U/L (15-37); Alanine Aminotransfer ALT/SGPT 33 U/L (16-61); Albumin, Serum 3.5 g/dL (3.2-5.0); Alkaline Phosphatase 75 U/L (45-117); Anion Gap 4 (5-15); BUN 18 mg/dL (7-18); BUN/Creat Ratio 16.2 RATIO (10-20); Calcium,Total 9.6 mg/dL (8.5-10.1); Chloride 103 mmol/L (98-107); Creatinine, Serum 1.11 mg/dL (0.70-1.30); EST Glomerular Filtration Rate 69 mL/min (>60); Est Glom Filt Rate - Afr Amer 83 mL/min (>60); Glucose 199 mg/dL (74-106); Potassium 4.2 mmol/L (3.5-5.1); Protein, Total 7.5 g/dL (6.4-8.2); Sodium Level 133 mmol/L (136-145)
== END | disposition home or self-care (01) ==
PROVIDERS: PCP Family Medicine; Referring Provider Nurse Practitioner Family; Visit Provider Nurse Practitioner Family
DX: R10.9 Unspecified abdominal pain (principal); K59.00 Constipation, unspecified; R91.8 Other nonspecific abnormal finding of lung field
CPT/HCPCS: 36415; 74022; 80053; 85027

== ENCOUNTER → 2022-09-01 | Outpatient (CLI) | payer MEDICARE, SELFPAY ==
[2022-09-01 08:47] LABS: Bacteria 0 SEEN /hpf (None Seen)
[2022-09-01 10:16] LABS: Absolute Neutrophil Count 8.7 X10^3/uL (2.0-7.7); Basophil# 0.05 X10^3/uL; Basophil% 0.5 % (0-1); Eosinophil# 0.02 X10^3/uL; Eosinophils% 0.2 % (0-5); Hematocrit 46.9 % (40-54); Hemoglobin 15.9 g/dL (13.0-16.5); Lymphocyte % 11.5 % (19-41); Mean Corp Hgb Conc 33.9 g/dL (32-36); Mean Corpuscular Hgb 30.2 pg (27.0-32.0); Mean Platelet Vol. 10.9 fl (6.2-12.0); Monocyte# 0.39 X10^3/uL; Monocyte% 3.7 % (0-10); NRBC Flagged by Analyzer 0 % (0-5); Neutrophil % 83.6 % (47-70); Platelet Count 164 K/mm3 (150-450); RBC Distribution Width CV 13.4 % (11.6-14.6); RBC Distribution Width SD 43.9 fl (35.1-43.9); Red Blood Count 5.27 M/mm3 (4.6-6.2); White Blood Count 10.4 K/mm3 (4.4-11.0)
[2022-09-01 10:21] LABS: Color, Urine Yellow (Yellow); Glucose, Dipstick 100 mg/dl (Normal); Ketone-Dipstick Negative (Negative); Leukocyte Esterase-Dipstick 25 /ul (Negative); Nitrite-Dipstick Negative (Negative); Occult Blood-Urine 10 /ul (Negative); Protein-Dipstick 30 mg/dl (Negative); Specific Gravity, Urine 1.025 (1.002-1.030); Urine Bilirubin Dipstick Negative (Negative); Urine Clarity Clear (Clear); Urine Urobilinogen 1 mg/dl (Normal)
[2022-09-01 10:29] LABS: Red Blood Cells-Urine 0-5 SEEN /hpf (0-5); Squamous Epithelial Cells - UA 0-5 SEEN /hpf (0-5); White Blood Cells 0-5 SEEN /hpf (0-5)
[2022-09-01 10:30] LABS: Mucous, Urine 2+ /hpf (<or=2+)
[2022-09-01 10:53] LABS: Hemoglobin A1c 7.8 % (3.8-5.6)
[2022-09-01 10:55] LABS: ALB/GLOB Ratio 0.9 RATIO (0.9-2.4); AST(SGOT) 19 U/L (15-37); Alanine Aminotransfer ALT/SGPT 34 U/L (16-61); Albumin, Serum 3.3 g/dL (3.2-5.0); Alkaline Phosphatase 73 U/L (45-117); Anion Gap 4 (5-15); BUN 13 mg/dL (7-18); BUN/Creat Ratio 13.2 RATIO (10-20); CRP < 2.90 mg/L (0.0-3.0); Calcium,Total 9.2 mg/dL (8.5-10.1); Chloride 109 mmol/L (98-107); Creatinine, Serum 0.98 mg/dL (0.70-1.30); EST Glomerular Filtration Rate 79 mL/min (>60); Est Glom Filt Rate - Afr Amer 96 mL/min (>60); Globulin 3.7 g/dL (2.2-4.2); Glucose 248 mg/dL (74-106); PSA,Total- Diagnostic 0.92 ng/mL (0.0-4.0); Potassium 3.7 mmol/L (3.5-5.1); Sodium Level 136 mmol/L (136-145); Thyroid Stim Hormone (TSH) 3.88 uIU/mL (0.358-3.74)
== END | disposition home or self-care (01) ==
LOC: MFPLAB 08:43
PROVIDERS: PCP Family Medicine; Visit Provider Family Medicine
DX: J32.9 Chronic sinusitis, unspecified (principal); E11.8 Type 2 diabetes mellitus with unspecified complications; E03.9 Hypothyroidism, unspecified; R63.4 Abnormal weight loss; N40.0 Benign prostatic hyperplasia without lower urinary tract symptoms
CPT/HCPCS: 36415; 80053; 81001; 83036; 84153; 84443; 85025; 86140

== ENCOUNTER 2022-09-10 09:32 | Emergency (ER) | payer MEDICARE, SELFPAY ==
[2022-09-10 09:33] VITALS: BP 165/87; PULSE 52; RESP 16; TEMP 35.5; O2SAT 99; BMI 36.0
--- NOTE | 2022-09-10 10:12 | CT_ITS ---
HISTORY: Pain, vomiting, and weakness suspect bowel obstruction. History colostomy, hernia repair, bladder surgery, rectal cancer, bowel resection, hypertension. TECHNIQUE: Helically acquired images were obtained of the abdomen and pelvis after the intravenous administration of 100mL Isovue-300. A radiation dose optimization technique was used for this scan. 461 images. COMPARISON: 05/13/2022, 01/23/2022. FINDINGS: LOWER CHEST: Stable 6 mm right lower lobe and 4 mm left lower lobe nodules with small blebs in the lung bases. BOWEL: Bowel nondilated. Small duodenal diverticulum. Extensive small bowel diverticulosis without acute diverticulitis. No periappendiceal inflammation with the appendix extending toward the rectal resection site. Moderate stool in the colon. Resection of the rectum. PERITONEUM: No significant ascites. LIVER: Multiple homogeneously enhancing, hypoenhancing, and irregular peripherally enhancing mass is again seen. GALLBLADDER/BILIARY TREE: Gallbladder present. SPLEEN: Stable indeterminate subcentimeter hypoenhancing lesion. PANCREAS: Homogeneous and nonenlarged. KIDNEYS: Mild bilateral hydroureteronephrosis down to the level of the bladder. Stable small right renal cyst. ADRENAL GLANDS: Stable 11 mm nodule. VESSELS: No abdominal aortic aneurysm. Mild mural thrombus and ectasia of the infrarenal abdominal aorta again noted. PELVIC ORGANS: Mild enlargement of the prostate gland, asymmetric right bladder wall thickening, and postoperative change in the pelvis again noted. No pathologically enlarged lymph nodes. ABDOMINAL WALL: Colostomy at the umbilicus chronic mild parastomal herniation of colon. No inflammation or wall thickening in the hernia sac.Moderate lower ventral hernia at the level of the lower pelvis containing multiple loops of small bowel again seen without wall thickening or inflammatory change in the hernia sac. BONES: Osteopenia and degenerative change. L3 hemangioma. CT/Abdomen/Pelvis W IV Cont ONLY IMPRESSION: No evidence of small bowel obstruction. Extensive small bowel diverticulosis without acute diverticulitis. Colostomy and chronic parastomal herniation of colon without evidence for colonic obstruction or strangulation. Ventral hernia over the pelvis containing small bowel without evidence for small bowel obstruction or strangulation. Multiple liver masses, again concerning for metastases. Stable small splenic lesion. Stable pulmonary nodules. Mild bilateral hydroureteronephrosis, suggesting bladder outlet obstruction. Stable small right renal cysts. Chronic findings and postoperative changes in the pelvis as above. Electronically Signed: Germania Guido MD at 12:06 EDT ,
[2022-09-10 10:41] LABS: Absolute Neutrophil Count 7.9 X10^3/uL (2.0-7.7); Basophil# 0.04 X10^3/uL; Basophil% 0.4 % (0-1); Eosinophil# 0.01 X10^3/uL; Eosinophils% 0.1 % (0-5); Hematocrit 45.6 % (40-54); Hemoglobin 15.5 g/dL (13.0-16.5); Lymphocyte % 12.6 % (19-41); Mean Corpuscular Hgb 30.6 pg (27.0-32.0); Mean Corpuscular Volume 89.9 fL (80-94); Mean Platelet Vol. 10.4 fl (6.2-12.0); Monocyte# 0.33 X10^3/uL; Monocyte% 3.5 % (0-10); NRBC Flagged by Analyzer 0 % (0-5); Platelet Count 158 K/mm3 (150-450); RBC Distribution Width CV 13.4 % (11.6-14.6); RBC Distribution Width SD 43.9 fl (35.1-43.9); Red Blood Count 5.07 M/mm3 (4.6-6.2); White Blood Count 9.5 K/mm3 (4.4-11.0)
[2022-09-10] MEDS: 0.9% Normal Saline 1,000 ML 1000 ML IV (10:52)
[2022-09-10] MEDS: Ondansetron 4 MG/2 ML Vial IV (10:52)
[2022-09-10 10:58] LABS: ALB/GLOB Ratio 0.9 RATIO (0.9-2.4); AST(SGOT) 15 U/L (15-37); Alanine Aminotransfer ALT/SGPT 29 U/L (16-61); Albumin, Serum 3.2 g/dL (3.2-5.0); Alkaline Phosphatase 69 U/L (45-117); Anion Gap 4 (5-15); BUN 17 mg/dL (7-18); BUN/Creat Ratio 15.9 RATIO (10-20); Calcium,Total 9.3 mg/dL (8.5-10.1); Chloride 104 mmol/L (98-107); Creatinine, Serum 1.07 mg/dL (0.70-1.30); EST Glomerular Filtration Rate 72 mL/min (>60); Est Glom Filt Rate - Afr Amer 87 mL/min (>60); Estimated Creatinine Clearance 56.63 ml/min; Globulin 3.5 g/dL (2.2-4.2); Glucose 218 mg/dL (74-106); Potassium 3.9 mmol/L (3.5-5.1); Protein, Total 6.7 g/dL (6.4-8.2); Sodium Level 135 mmol/L (136-145)
--- NOTE | 2022-09-10 12:31 | EDS_ITS ---
HPI History of Present Illness Chief Complaint: General Illness Detail of Chief Complaint: Posterior headache, abdominal pain, distention no BM or flatus Informant: patient and spouse/S.O. Onset/Context/Timing Onset: Days and Weeks Context: Sudden Onset Timing: Intermittent and Waxes and wanes Quality: Abdominal discomfort Location: Generalized Current Severity: Mild Maximum Severity: Moderate Worsened by: Attempt to eat or drink anything Relieved by: Nothing Associated Symptoms Associated Symptoms: No constitutional symptoms Narrative Narrative: Patient is a 72-year-old male who was recently seen by his doctor and placed on antibiotic for uncertain reasons per patient's recollection. He has history of rectal carcinoma status post colostomy. This was done several years ago at [facility]. He does not recall the name of the surgeon. He denies fever, chills night sweats. Nu[place] headache, visual, ocular auditory symptoms. He denies cardiac or respiratory symptoms. He denies urologic symptoms. He denies neurologic symptoms or Prior similar symptoms: Yes Recent Illness/Hospitalization: No PFSH PFSH Medical History ABDOMINAL PERINEAL RESETION OF SIGMOID Colostomy in place Diabetes DISSECTED URETHRA Encounter for screening for malignant neoplasm of lung in current smoker with 30 pack year history or greater Hypertension Liver nodule Lung nodule Rectal cancer Rectum cancer Recurrent incisional hernia Suprapubic catheter Tobacco use disorder, continuous Home Medications lisinopril 20 mg tablet 20 mg PO BID 01/22/14 [History Last Taken 09/09/22] atorvastatin 10 mg tablet 10 mg PO DAILY 02/18/21 [History Last Taken 09/10/22] glipizide 10 mg tablet, extended release 24 hr 10 mg PO QHS 01/23/22 [History Last Taken 09/09/22] levothyroxine 125 mcg tablet (Synthroid) 125 mcg PO DAILY 01/23/22 [History Last Taken 09/06/22] nebivolol 10 mg tablet 10 mg PO DAILY 05/20/22 [History Last Taken 09/10/22] acetaminophen 500 mg tablet 500 mg PO Q6H PRN Pain 09/10/22 [History Last Taken 09/09/22] amlodipine 5 mg tablet 5 mg PO DAILY HTN 09/10/22 [History Last Taken 09/09/22] cefdinir 300 mg capsule 300 mg PO BID ANTIBIOTIC 09/10/22 [History Last Taken 09/10/22] ondansetron HCl 8 mg tablet 8 mg PO Q8H PRN Nausea 09/10/22 [History Last Taken 09/10/22] Allergy/AdvReac Type Severity Reaction Status Date / Time amoxicillin Allergy Vomiting Verified 09/10/22 09:33 Family History Mother Heart disease Myocardial infarction Hypertension Surgical History History of bladder surgery History of bowel resection History of incisional hernia repair History of liver biopsy History of rectal surgery Social History household members: spouse Smoking Status: Current every day smoker tobacco type: cigarettes Tobacco: How many years used: 51 Electronic Cigarette Use: not used second hand exposure: Yes quit status: has quit before counseling given: provider counseling ROS ROS ED Constitutional Constitutional ED: Denies chills, fever(s), subjective, sweats or weight loss Eyes Eyes: Denies blurry vision, change in vision or diplopia ENT ENT ED: Denies ear pain, rhinorrhea or sore throat Cardiovascular Cardiovascular: Denies chest pain, orthopnea, palpitations, paroxysmal nocturnal dyspnea or racing heartbeat Respiratory/Chest Respiratory/Chest: Denies cough, dyspnea, dyspnea on exertion, orthopnea or paroxysmal nocturnal dyspnea Gastrointestinal Gastrointestinal: Reports abdominal pain, constipation, nausea and vomiting; Denies diarrhea or melena Genitourinary Genitourinary ED: Denies dysuria, hematuria or urinary frequency Musculoskeletal Musculoskeletal: Denies arthralgias, back pain, myalgias or neck pain Integumentary Denies abscess, Abrasions or rash Neurologic Neurologic: Reports weakness; Denies headache(s) or paresthesias Psychiatric Psychiatric: Denies anxiety Endocrine Endocrinology: Denies cold intolerance or heat intolerance Hematologic/Lymphatic Hematologic/Lymphatic: Reports systems reviewed and no addt'l complaints, except as documented EXAM Physical Exam Const Vital Signs: 09/10/22 09:33 09/10/22 10:50 09/10/22 12:33 Temperature 95.9 F L Temperature Source Temporal Pulse Rate 52 L 50 L Respiratory Rate 16 18 Respiratory Effort Normal Non-Labored Respiratory Pattern Normal Blood Pressure 165/87 H 163/89 H Blood Pressure Mean 113 113 Pulse Ox 99 99 Oxygen Delivery Method Room Air Room Air 09/10/22 14:33 Temperature Temperature Source Pulse Rate 47 L Respiratory Rate 18 Respiratory Effort Respiratory Pattern Blood Pressure 157/82 H Blood Pressure Mean 107 Pulse Ox 99 Oxygen Delivery Method Room Air Positive well nourished, well developed and obese General Appearance ED: well developed and NAD; Negative for cyanotic, diaphoretic or pallor Nutritional Appearance: obese HEENT Reports moist mucous membranes HEENT Narrative: Head is atraumatic normocephalic. Ears normal. Nares patent. Posterior pharynx. Eyes PERRL and EOMs intact bilaterally General Eye ED: Negative for pale conjunctiva or scleral icterus Neck no lymphadenopathy, supple and no JVD General: tenderness Chest Wall inspection of chest normal and palpation of chest normal Resp normal respiratory effort and clear to auscultation bilaterally Cardio regular rate, regular rhythm, S1 normal heart sound, S2 normal heart sound and no murmurs GI hepatosplenomegaly and no masses; Negative for non-tender or non-distended GI Narrative: There is no stool or gas in the colostomy bag. Inspection: abdominal distention Auscultation: hypoactive bowel sounds Palpation: tender other (Minimal diffusely.); Negative for guarding, splenomegaly, mass or rebound tenderness present Rectal Exam: other Other Details: Colostomy is pink and viable. Back/Spine no CVA tenderness Extremity normal to inspection General Extremety ED: Yes edema; Negative for tenderness General Extremity: edema Neuro oriented x3, CN's II-XII intact bilaterally and no sensory deficits noted Sensorium / Orientation: alert Psych mental status grossly normal Skin no rashes or lesions noted, no wounds and skin turgor normal General Skin Exam: elasticity normal; Negative for jaundice or pallor MDM MDM MDM Narrative Medical decision making narrative: History of nausea vomiting constipation no flatus or stool in colostomy bag concern patient may have obstruction. CT of the abdomen was obtained since he has history of cancer. Appropriate blood work was obtained as well to assess H&H and white count and comprehensive metabolic panel was obtained to assess e lectrolytes, renal function and liver enzymes since there is also concern for metastasis since he has history of nodules on the liver. Since he is not having diarrhea doubt Pseudomonas under colitis. Lab Data Labs: Laboratory Results - last 24 hr 09/10/22 09/10/22 10:35 10:35 WBC 9.5 RBC 5.07 Hgb 15.5 Hct 45.6 MCV 89.9 MCH 30.6 MCHC 34.0 RDW Std Deviation 43.9 RDW Coeff of Ewa 13.4 Plt Count 158 MPV 10.4 Immature Gran % (Auto) 0.400 Neut % (Auto) 83.0 H Lymph % (Auto) 12.6 L Thayer % (Auto) 3.5 Eos % (Auto) 0.1 Baso % (Auto) 0.4 Absolute Neuts (auto) 7.9 H Absolute Lymphs (auto) 1.20 Nucleated RBC % 0 Sodium 135 L Potassium 3.9 Chloride 104 Carbon Dioxide 27.0 Anion Gap 4 L BUN 17 Creatinine 1.07 Estim Creat Clear Calc 56.63 Est GFR (MDRD) Af Amer 87 Est GFR (MDRD) Non-Af 72 BUN/Creatinine Ratio 15.9 Glucose 218 H Calcium 9.3 Total Bilirubin 1.00 AST 15 ALT 29 Alkaline Phosphatase 69 Total Protein 6.7 Albumin 3.2 Globulin 3.5 Albumin/Globulin Ratio 0.9 Radiography Diagnostic Testing: Clinical Impression(s) from Imaging Studies Abdomen/Pelvis CT 09/10/22 10:12 IMPRESSION: No evidence of small bowel obstruction. Extensive small bowel diverticulosis without acute diverticulitis. Colostomy and chronic parastomal herniation of colon without evidence for colonic obstruction or strangulation. Ventral hernia over the pelvis containing small bowel without evidence for small bowel obstruction or strangulation. Multiple liver masses, again concerning for metastases. Stable small splenic lesion. Stable pulmonary nodules. Mild bilateral hydroureteronephrosis, suggesting bladder outlet obstruction. Stable small right renal cysts. Chronic findings and postoperative changes in the pelvis as above. Electronically Signed: Germania Guido MD at 12:06 EDT , In light of bilateral hydronephrosis will obtain bladder scan and possible placement of Arteaga. Treatment and Re-Evaluation :: Modified Elle maneuver was performed. Total time 6 minutes. Patient's vertigo resolved with Elle maneuver. Discharge Plan Triage Chief Complaint: General Illness ED Provider: Bennett,Lloyd Dx/Rx/DC Orders Clinical Impression: Benign paroxysmal positional vertigo of right ear, Liver nodule, Acute generalized abdominal pain, Nausea & vomiting, Acute constipation, History of rectal cancer, Colostomy care, Hypertension Instructions: ED BPV Vertigo, ED Constipation (Adult) Prescriptions: No Action atorvastatin 10 mg tablet 10 mg PO DAILY nebivolol 10 mg tablet 10 mg PO DAILY lisinopril 20 MG tablet 20 mg PO BID Label Comments: glipizide 10 mg tablet extended release 24hr 10 mg PO QHS levothyroxine [Synthroid] 125 mcg tablet 125 mcg PO DAILY ondansetron HCl 8 mg tablet 8 mg PO Q8H PRN (Reason: Nausea) Label Comments: TAKE 1 TABLET BY MOUTH EVERY 8 HOURS amlodipine 5 mg tablet 5 mg PO DAILY Label Comments: TAKE 1 TABLET BY MOUTH ONCE DAILY acetaminophen 500 mg Tablet 500 mg PO Q6H PRN (Reason: Pain) cefdinir 300 mg capsule 300 mg PO BID Label Comments: TAKE 1 CAPSULE BY MOUTH TWICE DAILY FOR 7 DAYS Primary Care Provider: Byron Brand Referrals: Byron Brand MD [Primary Care Provider] - 3-5 Days if not improving Activity Restrictions/Additional Instructions: 1. Recommend MiraLAX 3 times a day for the next week then once daily 2. To help you move your bowels more rapidly you can drink a glass of MiraLAX every 2 hours until you start to have results. Disposition Disposition: Home, Self Care
[2022-09-10 12:33] VITALS: BP 163/89; PULSE 50; RESP 18; O2SAT 99
--- NOTE | 2022-09-10 12:58 | NURSING ---
pt resting in bed and chart up for reeval. pt and report that pt filled urinal 4x since fluids given and had that ct contrast will need scrub pants andattends for dc home d/t incontinence.
[2022-09-10 14:33] VITALS: BP 157/82; PULSE 47; RESP 18; O2SAT 99
== END 2022-09-10 16:00 | disposition home or self-care (01) ==
PROVIDERS: Emergency Provider Emergency Medicine; PCP Family Medicine; Visit Provider Emergency Medicine
DX: H81.11 Benign paroxysmal vertigo, right ear (principal); Z93.3 Colostomy status; E11.9 Type 2 diabetes mellitus without complications; F17.210 Nicotine dependence, cigarettes, uncomplicated; K76.89 Other specified diseases of liver; K59.00 Constipation, unspecified; I10 Essential (primary) hypertension; R14.0 Abdominal distension (gaseous); E66.9 Obesity, unspecified; Z79.899 Other long term (current) drug therapy; Z79.890 Hormone replacement therapy; R10.9 Unspecified abdominal pain; Z85.048 Personal history of other malignant neoplasm of rectum, rectosigmoid junction, and anus
CPT/HCPCS: 74177; 80053; 85025; 96361; 96374; 99283; J7030; Q9967; A4216; J2405

== ENCOUNTER → 2022-09-21 | Outpatient (CLI) | payer MEDICARE, SELFPAY ==
[2022-09-21 11:03] LABS: Bacteria 0 SEEN /hpf (None Seen); Mucous, Urine 0 SEEN /hpf (<or=2+); Red Blood Cells-Urine 0 SEEN /hpf (0-5); Squamous Epithelial Cells - UA 0 SEEN /hpf (0-5)
[2022-09-21 12:07] LABS: Absolute Lymphocyte Count 1.94 X10^3/uL (0.83-4.51); Absolute Neutrophil Count 9.2 X10^3/uL (2.0-7.7); Basophil# 0.06 X10^3/uL; Basophil% 0.5 % (0-1); Eosinophil# 0.07 X10^3/uL; Eosinophils% 0.6 % (0-5); Hematocrit 49.4 % (40-54); Hemoglobin 16.6 g/dL (13.0-16.5); Lymphocyte # 1.94 X10^3/ul (0.83-4.51); Lymphocyte % 16.3 % (19-41); Mean Corp Hgb Conc 33.6 g/dL (32-36); Mean Corpuscular Hgb 30.5 pg (27.0-32.0); Mean Corpuscular Volume 90.8 fL (80-94); Mean Platelet Vol. 10.6 fl (6.2-12.0); Monocyte# 0.51 X10^3/uL; Monocyte% 4.3 % (0-10); NRBC Flagged by Analyzer 0 % (0-5); Neutrophil # 9.23 X10^3/uL (2.7-7.7); Neutrophil % 77.5 % (47-70); Platelet Count 191 K/mm3 (150-450); RBC Distribution Width CV 13.6 % (11.6-14.6); RBC Distribution Width SD 45.5 fl (35.1-43.9); Red Blood Count 5.44 M/mm3 (4.6-6.2); White Blood Count 11.9 K/mm3 (4.4-11.0)
[2022-09-21 12:09] LABS: Color, Urine Yellow (Yellow); Glucose, Dipstick 250 mg/dl (Normal); Ketone-Dipstick Negative (Negative); Leukocyte Esterase-Dipstick 25 /ul (Negative); Nitrite-Dipstick Negative (Negative); Occult Blood-Urine 10 /ul (Negative); Protein-Dipstick 30 mg/dl (Negative); Specific Gravity, Urine 1.025 (1.002-1.030); Urine Bilirubin Dipstick Negative (Negative); Urine Clarity Clear (Clear); Urine Urobilinogen 1 mg/dl (Normal)
[2022-09-21 12:37] LABS: White Blood Cells 0-5 SEEN /hpf (0-5)
[2022-09-21 12:40] LABS: ALB/GLOB Ratio 0.9 RATIO (0.9-2.4); AST(SGOT) 15 U/L (15-37); Alanine Aminotransfer ALT/SGPT 26 U/L (16-61); Albumin, Serum 3.4 g/dL (3.2-5.0); Alkaline Phosphatase 74 U/L (45-117); Anion Gap 7 (5-15); BUN 23 mg/dL (7-18); BUN/Creat Ratio 20.5 RATIO (10-20); CRP < 2.90 mg/L (0.0-3.0); Calcium,Total 9.3 mg/dL (8.5-10.1); Chloride 103 mmol/L (98-107); Creatinine, Serum 1.12 mg/dL (0.70-1.30); EST Glomerular Filtration Rate 68 mL/min (>60); Est Glom Filt Rate - Afr Amer 82 mL/min (>60); Globulin 3.7 g/dL (2.2-4.2); Glucose 255 mg/dL (74-106); Potassium 4.7 mmol/L (3.5-5.1); Protein, Total 7.1 g/dL (6.4-8.2); Sodium Level 139 mmol/L (136-145)
== END | disposition home or self-care (01) ==
LOC: MFPLAB 10:49
PROVIDERS: PCP Family Medicine; Visit Provider Family Medicine
DX: R11.10 Vomiting, unspecified (principal); R39.9 Unspecified symptoms and signs involving the genitourinary system
CPT/HCPCS: 36415; 80053; 81001; 85025; 86140; 87086; 87088

== ENCOUNTER 2022-10-05 15:19 | Emergency (ER) | payer MEDICARE, SELFPAY ==
[2022-10-05 15:20] VITALS: BP 178/96; PULSE 67; RESP 16; TEMP 36.4; O2SAT 98
[2022-10-05 15:35] VITALS: BMI 34.3
[2022-10-05 15:39] VITALS: BP 189/97; PULSE 70; RESP 18; O2SAT 98
--- NOTE | 2022-10-05 15:51 | EKG12_ITS ---
Test Reason : GENERAL Blood Pressure : / mmHG Vent. Rate : 056 BPM Atrial Rate : 056 BPM P-R Int : 164 ms QRS Dur : 094 ms QT Int : 442 ms P-R-T Axes : 054 051 110 degrees QTc Int : [address] & T wave abnormality, consider lateral ischemia Abnormal ECG Confirmed by TRACY MCKAY, GISSEL ([id number]), manuscript editor EM ROQUE ([id number]) on 10/07/2022 2:06:33 PM Referred By: Confirmed By:GISSEL MOLINA MD
--- NOTE | 2022-10-05 15:52 | EX.ED.DYSGE1 ---
HPI History of Present Illness Chief Complaint: General Illness Informant: patient, spouse/S.O. and family Onset/Context/Timing Onset: Month(s) Context: Gradual Onset Timing: Intermittent Current Severity: Mild Maximum Severity: Mild Narrative Narrative: 72-year-old male history of colon cancer colostomy and [id number] diabetes. He had nausea vomiting since last night trouble with his balance. He has had 2 falls without injuries since early August. Denies any change in his speech. He said the symptoms of his balance are off and on. Currently describes the dizziness as off-balance. He denies the room spinning. He denies any headache or head trauma. He has had no stroke history. Prior similar symptoms: Yes Recent Illness/Hospitalization: No PFSH PFS Medical History ABDOMINAL PERINEAL RESETION OF SIGMOID Colostomy in place Diabetes DISSECTED URETHRA Encounter for screening for malignant neoplasm of lung in current smoker with 30 pack year history or greater Hypertension Liver nodule Lung nodule Rectal cancer Rectum cancer Recurrent incisional hernia Suprapubic catheter Tobacco use disorder, continuous Home Medications lisinopril 20 mg tablet 20 mg PO BID 01/22/14 [History Last Taken 09/09/22] atorvastatin 10 mg tablet 10 mg PO DAILY 02/18/21 [History Last Taken 09/10/22] glipizide 10 mg tablet, extended release 24 hr 10 mg PO QHS 01/23/22 [History Last Taken 09/09/22] levothyroxine 125 mcg tablet (Synthroid) 125 mcg PO DAILY 01/23/22 [History Last Taken 09/06/22] nebivolol 10 mg tablet 10 mg PO DAILY 05/20/22 [History Last Taken 09/10/22] acetaminophen 500 mg tablet 500 mg PO Q6H PRN Pain 09/10/22 [History Last Taken 09/09/22] amlodipine 5 mg tablet 5 mg PO DAILY HTN 09/10/22 [History Last Taken 09/09/22] cefdinir 300 mg capsule 300 mg PO BID ANTIBIOTIC 09/10/22 [History Last Taken 09/10/22] ondansetron HCl 8 mg tablet 8 mg PO Q8H PRN Nausea 09/10/22 [History Last Taken 09/10/22] Allergy/AdvReac Type Severity Reaction Status Date / Time amoxicillin Allergy Vomiting Verified 10/05/22 15:36 Family History Mother Heart disease Myocardial infarction Hypertension Surgical History History of bladder surgery History of bowel resection History of incisional hernia repair History of liver biopsy History of rectal surgery Social History household members: spouse Smoking Status: Current every day smoker tobacco type: cigarettes Tobacco: How many years used: 51 Electronic Cigarette Use: not used second hand exposure: Yes quit status: has quit before counseling given: provider counseling ROS ROS ED ROS Narrative Dizziness with difficulty walking. Review of Systems ROS Unobtainable: Denies due to encephalopathy Constitutional Constitutional ED: Denies chills or fever(s) Eyes Eyes: Denies blurry vision ENT ENT ED: Denies ear pain Cardiovascular Cardiovascular: Denies chest pain Respiratory/Chest Respiratory/Chest: Denies cough or dyspnea Gastrointestinal Gastrointestinal: Denies abdominal pain Genitourinary Genitourinary ED: Denies dysuria or hematuria Musculoskeletal Musculoskeletal: Denies arthralgias Integumentary Denies abscess Neurologic Neurologic: Denies headache(s) Psychiatric Psychiatric: Denies anxiety Endocrine Endocrinology: Denies cold intolerance Hematologic/Lymphatic Hematologic/Lymphatic: Reports none Allergic/Immunologic Allergic/Immunologic ED: Denies mouth swelling, tongue swelling or urticaria EXAM Physical Exam Narrative Exam Narrative: 68-year-old male vital signs stable afebrile. Lying in bed. Family in the room. He is in no distress. HEENT exam unremarkable. Pupils round reactive light. No facial droop. No trauma. TMs normal. No wax impaction. Neck nontender no lymphadenopathy. Lungs clear to auscultation bilaterally. Heart regular rhythm no murmur. Chest wall nontender. Abdomen soft nontender. Back nontender. Moving all 4 extremities. Neurovascularly intact. 5 out of 5 area counselor strength. Dorsi plantarflexion intact. No drift. Fingertip to nose within normal limits. NIH score is 0. Awake, alert, oriented. No focal motor motor or sensory deficits. Hallpike gave him some dizziness. Const Vital Signs: 10/05/22 15:20 10/05/22 15:36 10/05/22 15:39 Temperature 97.6 F L Temperature Source Temporal Pulse Rate 67 70 Respiratory Rate 16 18 Respiratory Effort Normal Non-Labored Respiratory Pattern Normal Blood Pressure 178/96 H 189/97 H Blood Pressure Mean 123 127 Pulse Ox 98 98 Oxygen Delivery Method Room Air Room Air 10/05/22 17:34 10/05/22 18:07 Temperature Temperature Source Pulse Rate 53 L 66 Respiratory Rate 14 18 Respiratory Effort Respiratory Pattern Blood Pressure 184/86 H 168/83 H Blood Pressure Mean 118 111 Pulse Ox 98 98 Oxygen Delivery Method Room Air Room Air Positive well nourished and well developed; Negative for obese, cachectic, contractures or unkempt General Appearance ED: well developed and NAD; Negative for unkempt, cachectic, contractures, cyanotic, diaphoretic or pallor Nutritional Appearance: Negative for cachectic or obese HEENT Reports moist mucous membranes; Denies dry mucous membranes Negative for trauma or tenderness Mouth ED: No dry mucous membranes Mouth: No dry mucous membranes Eyes PERRL and EOMs intact bilaterally General Eye ED: Negative for pale conjunctiva, scleral icterus or other Neck no lymphadenopathy, supple and no JVD General: Negative for tenderness Lymph Lymphatic: Negative for other Chest Wall inspection of chest normal and palpation of chest normal Chest: Negative for other Resp normal respiratory effort and clear to auscultation bilaterally Effort and Inspection: Negative for retractions Auscultation: Negative for rales, rhonchi or wheezes Cardio regular rate, regular rhythm, S1 normal heart sound, S2 normal heart sound and no murmurs Palpation: Negative for palpable S3 or palpable S4 Rate: Negative for bradycardia, tachycardic or other GI normal to inspection, nondistended, normoactive bowel sounds, non-tender, non-distended and no masses Inspection: Negative for abdominal distention Auscultation: normoactive bowel sounds Palpation: soft; Negative for tender or guarding Back/Spine no CVA tenderness General Back: Negative for CVA tenderness Cervical Spine: Negative for cervical spine tenderness Thoracic Spine / Upper Back: Negative for thoracic spinal tenderness Lumbar Spine / Lower Back: Negative for lumbar spinal tenderness Extremity normal to inspection General Extremety ED: Negative for edema or tenderness General Extremity: Negative for edema Neuro oriented x3, CN's II-XII intact bilaterally and no sensory deficits noted Sensorium / Orientation: alert; Negative for orientation impaired, lethargic or stuporous Motor Exam: strength 5/5 throughout; Negative for general weakness or strength abnormal Psych mental status grossly normal Appearance: Negative for unkempt Attitude: No agitated Mood & Affect: Negative for depressed or anxious Skin no rashes or lesions noted, no wounds and skin turgor normal General Skin Exam: elasticity normal; Negative for jaundice or pallor Lesions: No lesion noted Rashes: No rashes noted Trauma: Negative for abrasion Wounds: Negative for wounds noted MDM MDM MDM Narrative Medical decision making narrative: 72-year-old male describes dizziness with difficulty walking. In bed his neurologic exam is normal. He was on Antivert in the past which he states is helped his symptoms. He is out of it now. This could be secondary to a stroke, mass or brain tumor or vertigo versus other etiologies. Imaging of his brain and labs will be obtained. 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 Discussed with his he and his family. [facility] will be transferred to [facility]. I spoken with our hospitalist who is excepted the patient in transfer. Currently is resting comfortably at 7:45 PM. History & Record Review Additional record(s) reviewed:: Prior inpatient record, Prior outpatient record, Prior ED visit and Prior labs Lab Data Attestation: I reviewed the patient's lab results. Lab results narrative: CBC normal. White count 8.4. H&H 15.9 and 46.5. Electrolytes unremarkable gap of 9. BUN 25 creatinine 1.2. Glucose 253. He is a known diabetic. Labs: Laboratory Results - last 24 hr 10/05/22 10/05/22 16:10 16:10 WBC 8.4 RBC 5.21 Hgb 15.9 Hct 46.5 MCV 89.3 MCH 30.5 MCHC 34.2 RDW Std Deviation 44.8 H RDW Coeff of Ewa 13.6 Plt Count 167 MPV 10.6 Immature Gran % (Auto) 0.600 Neut % (Auto) 88.0 H Lymph % (Auto) 8.3 L Winn % (Auto) 2.8 Eos % (Auto) 0.1 Baso % (Auto) 0.2 Absolute Neuts (auto) 7.4 Absolute Lymphs (auto) 0.70 L Nucleated RBC % 0 Sodium 140 Potassium 3.8 Chloride 106 Carbon Dioxide 25.0 Anion Gap 9 BUN 25 H Creatinine 1.22 Estim Creat Clear Calc 49.67 Est GFR (MDRD) Af Amer 75 Est GFR (MDRD) Non-Af 62 BUN/Creatinine Ratio 20.5 H Glucose 253 H Calcium 9.4 Radiography Diagnostic Testing: Clinical Impression(s) from Imaging Studies Head/Neck CTA 10/05/22 15:54 IMPRESSION: Findings most consistent with predominantly cystic neoplasm in the right superior cerebellar hemisphere 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 Metastatic disease less likely. 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 Metastatic disease less likely. N.B. : The above Results were Read Back by David Francisco MD to Jhony Mcclain MD, and understanding confirmed on 10/05/2022 17:36:16 (ET). Electronically Signed: David Francisco MD at 17:27 EDT , Rhythm Strip Rhythm Strip: Sinus Rhythm Rate: 56 Ectopy: None EKG Initial EKG: Attestation: I personally reviewed and interpreted this EKG as follows: Interpretation: Sinus Rhythm and Sinus Bradycardia Comments: Sinus bradycardia rate of 56 no acute signs of NM or ischemia. Discharge Plan Triage Chief Complaint: General Illness ED Provider: Jhony Mcclain Dx/Rx/DC Orders Clinical Impression: Astrocytoma, Ataxia, History of diabetes mellitus, History of colon cancer Prescriptions: No Action atorvastatin 10 mg tablet 10 mg PO DAILY nebivolol 10 mg tablet 10 mg PO DAILY lisinopril 20 MG tablet 20 mg PO BID Label Comments: glipizide 10 mg tablet extended release 24hr 10 mg PO QHS levothyroxine [Synthroid] 125 mcg tablet 125 mcg PO DAILY ondansetron HCl 8 mg tablet 8 mg PO Q8H PRN (Reason: Nausea) Label Comments: TAKE 1 TABLET BY MOUTH EVERY 8 HOURS amlodipine 5 mg tablet 5 mg PO DAILY Label Comments: TAKE 1 TABLET BY MOUTH ONCE DAILY acetaminophen 500 mg Tablet 500 mg PO Q6H PRN (Reason: Pain) cefdinir 300 mg capsule 300 mg PO BID Label Comments: TAKE 1 CAPSULE BY MOUTH TWICE DAILY FOR 7 DAYS Primary Care Provider: Byron Brand Referrals: Byron Brand MD [Primary Care Provider] - Disposition Disposition: Acute Care Hospital
--- NOTE | 2022-10-05 15:54 | CT_ITS ---
We are attempting to reach an attending provider to discuss findings. An addendum with communication details will be sent when the communication is complete. STUDY: CTA HEAD AND NECK WITH CONTRAST REASON FOR EXAM: Male, 72 years old. dizziness RADIATION DOSAGE (If Supplied By Facility): CTDIvol = ( 33.42 ) mGy, DLP = ( 2232.25 ) mGycm TECHNIQUE: CT angiography was performed with a multi-detector CT scanner. Data acquisition was obtained from the skull base through the vertex following intravenous administration of IV 100mL Isovue-370. MIP images were reconstructed from the axial data set. Post-processing of the angiographic images was performed, with multiplanar reformation and 3D reconstruction. Individualized dose optimization techniques were used for this CT. COMPARISON: No relevant priors. FINDINGS: Normal bilateral petrous carotid arteries. Mild calcific plaquing of the right cavernous carotid artery with a normal supraclinoid bifurcation. Mild calcific plaquing of the left cavernous carotid artery with a normal supraclinoid bifurcation. Normal right A1 segments of the anterior cerebral artery. Normal left A1 segments of the anterior cerebral artery. Anterior communicating artery not visualized consistent with normal variant). Normal bilateral A2 segments of the anterior cerebral arteries. Normal right M1 and M2 segments of the middle cerebral arteries, with a normal M1 bifurcation. Normal left M1 and M2 segments of the middle cerebral arteries, with a normal M1 bifurcation. Posterior communicating arteries aren''t visualized consistent with normal variant. Normal bilateral vertebral arteries. Normal basilar artery with a normal basilar bifurcation. The visualized bilateral superior cerebellar (SCA) arteries are normal. Normal bilateral P1, P2 and visualized P3 segments of the posterior cerebral arteries. There is no demonstrated aneurysm of the [place]. . AORTIC ARCH: Normal visualized aortic arch. Normal origins of the brachiocephalic, left common carotid, and left subclavian arteries. RIGHT CAROTID ARTERIES: Normal right common carotid artery (CCA). Normal right common carotid bulb. Normal origin of the right internal carotid (ICA) artery without a hemodynamically significant stenosis. Normal visualized cervical portion of the right internal carotid artery. Normal origin of the right external carotid artery (ECA). LEFT CAROTID ARTERIES: Normal left common carotid artery (CCA). Normal left common carotid bulb. Normal origin of the left internal carotid (ICA) artery without a hemodynamically significant stenosis. Normal visualized cervical portion of the left internal carotid artery. Normal origin of the left external carotid artery (ECA). VERTEBRAL ARTERIES: Normal bilateral vertebral arteries. IMPRESSION: Minor atherosclerotic changes of the Head and neck with contrast. Electronically Signed: David Francisco MD at 17:23 EDT , STUDY: CT BRAIN WITHOUT CONTRAST REASON FOR EXAM: Male, 72 years old. dizziness RADIATION DOSAGE (If Supplied By Facility): CTDIvol = ( 33.42 ) mGy, DLP = ( 2232.25 ) mGycm TECHNIQUE: Transaxial CT imaging of the brain was performed without administration of intravenous contrast material. Individualized dose optimization techniques were used for this CT. COMPARISON: No relevant priors. FINDINGS: Normal soft tissue structures. Normal calvarium. Calcific plaquing of the cavernous carotids. Normal size ventricles and extra-axial spaces for the patient''s age. Normal white matter tracts of the cerebral hemispheres. Normal basal ganglia and thalami. Normal brainstem. There is a large predominantly hypoattenuated lobulated masslike density demonstrating rim enhancement left superior cerebellar hemisphere with associated edema extending into the vermis producing mass effect upon the fourth ventricle but without evidence for obstructive hydrocephalus at this time likely representing neoplasm. There is no intracranial hemorrhage. There are no findings of an acute ischemic infarction. Normal visualized paranasal sinuses. 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 Metastatic disease less likely. Electronically Signed: David Francisco MD at 17:27 EDT ,
[2022-10-05 16:21] LABS: Absolute Neutrophil Count 7.4 X10^3/uL (2.0-7.7); Basophil# 0.02 X10^3/uL; Basophil% 0.2 % (0-1); Eosinophil# 0.01 X10^3/uL; Eosinophils% 0.1 % (0-5); Hematocrit 46.5 % (40-54); Hemoglobin 15.9 g/dL (13.0-16.5); Lymphocyte % 8.3 % (19-41); Mean Corp Hgb Conc 34.2 g/dL (32-36); Mean Corpuscular Hgb 30.5 pg (27.0-32.0); Mean Corpuscular Volume 89.3 fL (80-94); Mean Platelet Vol. 10.6 fl (6.2-12.0); Monocyte# 0.24 X10^3/uL; Monocyte% 2.8 % (0-10); NRBC Flagged by Analyzer 0 % (0-5); Neutrophil # 7.41 X10^3/uL (2.7-7.7); Platelet Count 167 K/mm3 (150-450); RBC Distribution Width CV 13.6 % (11.6-14.6); RBC Distribution Width SD 44.8 fl (35.1-43.9); Red Blood Count 5.21 M/mm3 (4.6-6.2); White Blood Count 8.4 K/mm3 (4.4-11.0)
[2022-10-05 16:39] LABS: Anion Gap 9 (5-15); BUN 25 mg/dL (7-18); BUN/Creat Ratio 20.5 RATIO (10-20); Calcium,Total 9.4 mg/dL (8.5-10.1); Chloride 106 mmol/L (98-107); Creatinine, Serum 1.22 mg/dL (0.70-1.30); EST Glomerular Filtration Rate 62 mL/min (>60); Est Glom Filt Rate - Afr Amer 75 mL/min (>60); Estimated Creatinine Clearance 49.67 ml/min; Glucose 253 mg/dL (74-106); Potassium 3.8 mmol/L (3.5-5.1); Sodium Level 140 mmol/L (136-145)
[2022-10-05 17:34] VITALS: BP 184/86; PULSE 53; RESP 14; O2SAT 98
[2022-10-05 18:07] VITALS: BP 168/83; PULSE 66; RESP 18; O2SAT 98
--- NOTE | 2022-10-05 19:10 | ED.RN ---
PER DR. SILVER VERBAL ORDER, PT OKAY TO HAVE WATER.
[2022-10-05 20:09] VITALS: BP 175/84; PULSE 50; RESP 18; O2SAT 97
[2022-10-05 22:02] VITALS: BP 163/85; PULSE 68; RESP 18; O2SAT 95
--- NOTE | 2022-10-05 23:17 | ED.RN ---
THIS RN CALLED PT REPORT TO [facility] AT 2311. REPORT TAKEN BY ARIELA IVDAL. PT UPDATED ON ROOM NUMBER AND WAITING ON TRANSPORT.
[2022-10-06 01:15] VITALS: BP 144/84; PULSE 55; RESP 18; O2SAT 95
== END 2022-10-06 01:33 | disposition short-term general hospital (02) ==
PROVIDERS: Emergency Provider Emergency Medicine; PCP Family Medicine; Visit Provider Emergency Medicine
DX: C71.9 Malignant neoplasm of brain, unspecified (principal); E11.9 Type 2 diabetes mellitus without complications; R11.2 Nausea with vomiting, unspecified; I10 Essential (primary) hypertension; F17.210 Nicotine dependence, cigarettes, uncomplicated; Z85.038 Personal history of other malignant neoplasm of large intestine
CPT/HCPCS: 70496; 70498; 80048; 85025; 93005; 99284; Q9967; A4216

== ENCOUNTER → 2023-02-09 | Outpatient (CLI) | payer MEDICARE, SELFPAY ==
--- NOTE | 2023-02-09 13:13 | MRI_ITS ---
STUDY: MRI BRAIN WITH AND WITHOUT CONTRAST REASON FOR EXAM: Male, 72 years old. MALIGNANT NEOPLASM OF BRAIN S/P RESECTION 09/2022 TECHNIQUE: Standardized multiplanar fat and water weighted pulse sequences were obtained. IV 20 CC CLARISCAN was administered for the contrast portion of the examination. COMPARISON: None. FINDINGS: Normal size of the ventricles and extra-axial spaces for the patient''s age. Minimal periventricular white matter changes without mass effect or restricted diffusion. . Normal bilateral basal ganglia. Normal thalami. There is no extra-axial fluid accumulation. Normal flow voids within the major intracranial circulation suggesting patency by spin echo criteria. Normal venous enhancement. There is no enhancing intra-axial or extra-axial abnormality. Normal sella turcica, pituitary gland, infundibular stalk, optic chiasm and hypothalamus. Normal tectal plate and pineal gland. Normal midbrain, rena and medulla. Mild postsurgical cystic changes in the right cerebellar hemisphere status post resection of neoplasm as per clinical history.. Normal basal cisterns. Normal bilateral temporal bones. Normal bilateral internal auditory canals. No demonstrated orbital abnormality, within the constraints of a routine brain study. There is mucosal thickening of the bilateral maxillary and ethmoid sinuses . Postop change status post right occipital craniotomy Normal visualized soft tissue structures. Normal visualized upper cervical spine. MRI/Brain W/WO Contrast IMPRESSION: Findings consistent with postsurgical change status post resection of right cerebellar neoplasm. No enhancement seen to suggest recurrent or residual neoplasm Electronically Signed: David Francisco MD at 17:09 EDT ,
[2023-02-09 13:35] LABS: CREATININE FINGERSTICK 1.2 mg/dL (0.70-1.30); EGFR FINGERSTICK > 60.0000 mL/min (>60)
== END | disposition home or self-care (01) ==
LOC: MRI 12:21
PROVIDERS: PCP Family Medicine
DX: C79.31 Secondary malignant neoplasm of brain (principal)
CPT/HCPCS: 70553; A9575

== ENCOUNTER → 2023-05-05 | Outpatient (CLI) | payer MEDICARE, SELFPAY ==
--- NOTE | 2023-05-05 06:46 | MRI_ITS ---
STUDY: MRI BRAIN WITH AND WITHOUT CONTRAST REASON FOR EXAM: Male, 72 years old. BRAIN METS MALIGNANT NEOPLASM OF BRAIN S/P RESECTION 09/2022 history of colorectal carcinoma presenting for restaging TECHNIQUE: Standardized multiplanar fat and water weighted pulse sequences were obtained. IV 19 cc Clariscan was administered for the contrast portion of the examination. COMPARISON: MRI of the brain dated February 09, 2023. FINDINGS: Redemonstration of right occipital craniotomy and surgical resected defects in the posterior medial and anterior lateral aspects of the right cerebellar lobe were reported metastatic lesions were previously present. On the postcontrast images there are no recurrent masses in this region. There are no primary or metastatic lesions in the remaining aspects of the cerebellum or in the rena or brainstem. There are no demonstrated primary or metastatic lesions of the bilateral cerebral hemispheres. No abnormal appearing skull lesions are present. No demonstrated abnormal thickening of the meninges or dura on the current study. There is mild cerebral atrophy with widening of the extra-axial spaces and ventricular dilatation. There are a limited number of small white matter hyperintensities, distributed throughout the deep white matter tracts of the cerebral hemispheres, consistent with mild chronic white matter ischemic changes. There is no evidence for recent intracranial ischemia or other cause of cytotoxic edema on diffusion weighted imaging (DWI). Normal T2* images of the brain without demonstrated susceptibility artifact. There is no demonstrated hemosiderin stain. Normal bilateral basal ganglia. Normal thalami. There is no extra-axial fluid accumulation. Normal flow voids within the major intracranial circulation suggesting patency by spin echo criteria. Normal venous enhancement. Normal sella turcica, pituitary gland, infundibular stalk, optic chiasm and hypothalamus. Normal tectal plate and pineal gland. Normal midbrain, rena and medulla. Normal basal cisterns. Normal bilateral temporal bones. Normal bilateral internal auditory canals. No demonstrated orbital abnormality, within the constraints of a routine brain study. Normal visualized paranasal sinuses. Normal visualized soft tissue structures. Normal visualized upper cervical spine. MRI/Brain W/WO Contrast IMPRESSION: 1. Redemonstration of right occipital craniotomy and surgical resected defects in the posterior medial and anterior lateral aspects of the right cerebellar lobe were reported metastatic lesions were previously present. On the postcontrast images there are no recurrent masses in this region. There are no primary or metastatic lesions in the remaining aspects of the cerebellum or in the rena or brainstem. There are no demonstrated primary or metastatic lesions of the bilateral cerebral hemispheres. No abnormal appearing skull lesions are present. No demonstrated abnormal thickening of the meninges or dura on the current study. Electronically Signed: Gordon Moreno MD at 10:39 EST ,
[2023-05-05 07:10] LABS: CREATININE FINGERSTICK 1.1 mg/dL (0.70-1.30); EGFR FINGERSTICK > 60.0000 mL/min (>60)
== END | disposition home or self-care (01) ==
LOC: MRI 06:32
PROVIDERS: PCP Family Medicine
DX: C79.31 Secondary malignant neoplasm of brain (principal)
CPT/HCPCS: 70553; A9575

== ENCOUNTER → 2023-06-24 | Outpatient (CLI) | payer MEDICARE, SELFPAY ==
--- OUTSIDE RECORDS SUMMARY | 2023-06-24 07:48 | XMS RPT_ITS | CCD ---
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 Role Phone Valentine Brand MD Primary Care Provider [phone] Carmela Epps Unavailable ELMO, PAUL F Admitting Unavailable KHAYYAT, PAUL F Attending Unavailable BRAND, VALENTINE A Primary Care Unavailable FEGATELLI, NATI Referring Unavailable FEGATELLI, NATI Referring Unavailable ALLY PAULA Attending Unavailable BRAND, VALENTINE A Primary Care Unavailable FEGATELLI, NATI Referring Unavailable KHAYYAT, PAUL F Admitting Unavailable KHAYYAT, PAUL F Attending Unavailable BRAND, VALENTINE A Primary Care Unavailable LEANDRA BOLDEN Referring Unavailable ALLY PAULA Attending Unavailable BRAND, VALENTINE A Primary Care Unavailable FEGATELLI, NATI Referring Unavailable KHAYYAT, PAUL F Admitting Unavailable KHAYYAT, PAUL F Attending Unavailable BRAND, VALENTINE A Primary Care Unavailable FEGATELLI, NATI Referring Unavailable BRAND, VALENTINE A Primary Care Unavailable KHAYYAT, PAUL F Attending Unavailable BRAND, VALENTINE A Primary Care Unavailable BRAND, VALENTINE A Referring Unavailable FEGATELLI, NATI L Referring Unavailable BRAND, VALENTINE A Primary Care Unavailable KHAYYAT, PAUL F Attending Unavailable BRAND, VALENTINE A Primary Care Unavailable KHAYYAT, PAUL F Attending Unavailable BRAND, VALENTINE A Referring Unavailable BRAND, VALENTINE A Primary Care Unavailable KHAYYAT, PAUL F Attending Unavailable BRAND, VALENTINE A Primary Care Unavailable SAURAV SILVER Referring Unavailable DEMETRICE COCHRAN Attending Unavaila ble BRAND, VALENTINE A Primary Care Unavailable URIEL BRICENO Admitting Unavailable KHAYYAT, PAUL F Attending Unavailable BRAND, VALENTINE A Referring Unavailable VALENTINE BRAND Primary Care Unavailable Allergies Allergy Classification Reported Allergen(s) Allergy Type Date of Onset Reaction(s) Facility (9 sources) Amoxicillin; Translations: [AMOXICILLIN] Drug Allergy 10-06-[address] [facility] Medications Completed/Discontinued Medications Medication Drug Class(es) Dates Sig (Normalized) Sig (Original) amLODIPine 5 mg oral tablet (16 sources) Dihydropyridine Calcium Channel Luke Start: 12-14-2022 amLODIPine (NORVASC) 5 mg tablet Problems Active Problems Problem Classification Problem Date Documented Da te Episodic/Chronic Cancer of rectum and anus (16 sources) Malignant tumor of rectum; Translations: [Malignant neoplasm of rectum] Onset: 11-07-2014 10-06-2022 Chronic Diabetes mellitus without complication (16 sources) Type 2 diabetes mellitus without complication; Translations: [Type 2 diabetes mellitus without complications] Onset: 10-06-2022 10-06-2022 Chronic Essential hypertension (16 sources) Essential hypertension; Translations: [Essential (primary) hypertension] Onset: 10-06-2022 10-06-2022 Chronic Other and unspecified benign neoplasm (1 source) Benign neoplasm of cerebral meninges; Translations: [Intracranial meningioma (HCC)] Onset: 05-21-2023 Chronic Other nervous system disorders (16 sources) Mass lesion of brain; Translations: [Other specified disorders of brain] Onset: 10-06-2022 10-06-2022 Chronic Other nutritional; endocrine; and metabolic disorders (16 sources) Obese class I; Translations: [Obesity, unspecified] Onset: 10-06-2022 10-10-2022 Chronic Secondary malignancies (20 sources) Secondary malignant neoplasm of brain; Translations: [Secondary malignant neoplasm of brain] Onset: 10-27-2022 10-27-2022 Chronic Secondary malignancies (3 sources) Secondary malignant neoplasm of brain; Translations: [Secondary malignant neoplasm of brain (HCC)] Onset: 10-27-2022 Chronic Substance-related disorders (16 sources) Nicotine dependence; Translations: [Nicotine dependence, unspecified, uncomplicated] Onset: 08-25-2020 08-26-2020 Chronic Past or Other Problems Problem Classification Problem Date Documented Da te Episodic/Chronic Abdominal hernia (20 sources) Right inguinal hernia ; Translations: [Unilateral inguinal hernia, without obstruction or gangrene, not specified as recurrent] Onset: 05-28-2015 05-28-2015 Episodic Genitourinary symptoms and ill-defined conditions (16 sources) Disorder of urethra; Translations: [Urethral disorder, unspecified] Onset: 12-07-2014 12-07-2014 Episodic Other nervous system disorders (16 sources) Ataxia; Translations: [Ataxia, unspecified] Onset: 10-06-2022 10-06-2022 Episodic Other nervous system disorders (1 source) Ataxia, unspecified; Translations: [Ataxia] Onset: 10-06-2022 Episodic Results Test Name Value Interpretation Reference Range Facil ity Vital Signs Date Time Vital Sign Value Performing Clinician Faci lity 12-11-2022 08:55-0400 Body height 172.7 cm Paul Vazquez MD Work Phone: [facility] 12-11-2022 08:55-0400 Body weight 103 kg Paul Vazquez MD Work Phone: [facility] 12-11-2022 08:55-0400 Diastolic blood pressure 98 mm[Hg] Paul Vazquez MD Work Phone: [facility] 12-11-2022 08:55-0400 Heart rate 80 /min Paul Vazquez MD Work Phone: [facility] 12-11-2022 08:55-0400 Systolic blood pressure 154 mm[Hg] Paul Vazquez MD Work Phone: [facility] 11-13-2022 15:03-0400 Body height 172.7 cm Paul Vazquez MD Work Phone: [facility] 11-13-2022 15:03-0400 Body weight 103 kg Paul Vazquez MD Work Phone: [facility] 11-13-2022 15:03-0400 Diastolic blood pressure 90 mm[Hg] Paul Vazquez MD Work Phone: [facility] 11-13-2022 15:03-0400 Heart rate 71 /min Paul Vazquez MD Work Phone: [facility] 11-13-2022 15:03-0400 SaO2% (BldA) [Mass fraction] 98 % Paul Vazquez MD Work Phone: [facility] 11-13-2022 15:03-0400 Systolic blood pressure 147 mm[Hg] Paul Vazquez MD Work Phone: [facility] 11-11-2022 14:34-0400 Body temperature 97.59 [degF] Ally Paula MD Work Phone: [facility] 11-11-2022 14:34-0400 Body weight 102.97 kg Ally Paula MD Work Phone: [facility] 11-11-2022 14:34-0400 Diastolic blood pressure 76 mm[Hg] Ally Paula MD Work Phone: [facility] 11-11-2022 14:34-0400 Heart rate 74 /min Ally Paula MD Work Phone: [facility] 11-11-2022 14:34-0400 Respiratory rate 20 /min Ally Paula MD Work Phone: [facility] 11-11-2022 14:34-0400 SaO2% (BldA) [Mass fraction] 97 % Ally Paula MD Work Phone: [facility] 11-11-2022 14:34-0400 Systolic blood pressure 115 mm[Hg] Ally Paula MD Work Phone: [facility] Encounters Encounter Date Encounter Type Care Provider Facility Start: 05-21-2023 End: 05-21-2023 ambulatory PAUL VAZQUEZ Facility:[facility] Start: 05-06-2023 Telephone encounter Paul Vazquez MD Work Phone: [facility] Procedures Date Procedure Procedure Detail Performing Clinician Start: 11-26-2022 Ct guidance stereota ctic localization Paul Vazquez MD Work Phone: Start: 11-26-2022 Unlisted magnetic resonance procedure Paul Vazquez MD Work Phone: Start: 10-06-2022 Antibody screen PAUL VAZQUEZ Plan of Treatment Date Care Activity Detail Author Start: 11-12-2023 BP CONTROLLED (<130/80) BP CONTROLLED (<130/80) [facility] Start: 10-07-2023 Influenza vaccination LUNG CANCER SCREENING [facility] Start: 10-07-2023 Screening for malignant neoplasm of lung Lung Cancer Screening [facility] Start: 01-15-[address] [facility] Start: 01-06-2023 Hemoglobin A1c measurement HbA1C [facility] Start: 01-06-2023 Hemoglobin A1c/Hemoglobin.total in Blood HBA1C [facility] Start: 05-17-2022 ADVANCE DIRECTIVE DISCUSSION ADVANCE DIRECTIVE DISCUSSION [facility] Start: 05-17-2022 DEPRESSION ASSESSMENT DEPRESSION ASSESSMENT [facility] Start: 05-28-[address] [facility] Start: 2008 Hepatitis B Vaccine (1 of 3 - Risk 3-dose series) Hepatitis B Vaccine (1 of 3 - Risk 3-dose series) [facility] Start: 2008 RSV Vaccine (1 - 1-dose 60+ series) RSV Vaccine (1 - 1-dose 60+ series) [facility] Start: 1993 COLOGUARD (FIT-DNA) COLOGUARD (FIT-DNA) [facility] Start: [address] [facility] Start: 1993 COLORECTAL CANCER SCREENING COLORECTAL CANCER SCREENING [facility] Start: [address] [facility] Start: 1993 FECAL OCCULT BLOOD FECAL OCCULT BLOOD [facility] Start: 1993 Screening for malignant neoplasm of colon [facility] Start: [address] [facility] Start: 07-18-1967 SHINGRIX VACCINE (1 of 2) SHINGRIX VACCINE (1 of 2) [facility] Start: 07-18-1967 Urine microalbumin profile DTAP,TDAP,TD (1 - Tdap) [facility] Start: 1966 ANNUAL PCP TEAM CHRONIC DISEASE VISIT ANNUAL PCP TEAM CHRONIC DISEASE VISIT [facility] Start: 1966 BP CONTROLLED (<130/80) BP CONTROLLED (<130/80) [facility] Start: 1966 Hepatitis B surface antibody level LDL CHOLESTEROL [facility] Start: 1958 3 comp foot exam completed DIABETIC FOOT EXAM [facility] Start: 1958 Diabetic foot examination Diabetic Foot Exam [facility] Start: 1958 Glaucoma screening Dilated Retinal Exam [facility] Start: 1958 Hepatitis B screening URINE ALBUMIN:CREATININE RATIO [facility] Start: 1958 Hepatitis C antibody, confirmatory test DILATED RETINAL EXAM [facility] Start: 1954 PNEUMOCOCCAL: 65+ (1 - PCV) PNEUMOCOCCAL: 65+ (1 - PCV) [facility] Start: 1953 Covid-19 Vaccine (#1) Covid-19 Vaccine (#1) [facility] Start: 01-17-1949 COVID-19 VACCINE (#1) COVID-19 VACCINE (#1) [facility] Start: 1948 ABDOMINAL AORTIC ANEURYSM SCREENING ABDOMINAL AORTIC ANEURYSM SCREENING [facility] Start: 1948 Abdominal aortic aneurysm screening Abdominal Aortic Aneurysm Screening [facility] End: 11-13-2022 Mri brain brain stem w/o w/contrast material [facility] Work Phone: Immunizations Immunization Date Immunization Notes Care Provider Trista ramos 12-27-2017 pneumococcal polysaccharide vaccine, 23 valent Paul Vazquez MD Work Phone: [facility] 02-15-2017 pneumococcal polysaccharide vaccine, 23 valent Paul Vazquez MD Work Phone: [facility] 12-09-2016 pneumococcal conjuga te vaccine, 13 valent Paul Vazquez MD Work Phone: [facility] 05-27-2012 TD(adult) unspecifie d formulation Paul Vazquez MD Work Phone: [facility] Payers Date Payer Category Payer Unknown ANTHEM BLUE CROS S AND BLUE SHIELD AN[employer]M MEDIBLUE HMO [id number] 2018-Present [phone] [address] [place] [address] [facility] [id number] 2018 Unknown [id number] Social History Date Type Detail Facility Start: 10-07-2022 Tobacco smoking stat us NHIS Ex-smoker [facility] End: 04-01-2016 History of tobacco use Current smoker [facility] End: 04-01-2016 History of tobacco use Cigarette Smoker [facility] Start: 10-07-2022 End: 10-27-2022 Cigarettes smoked current (pack per day) - Reported 1 [facility] Work Phone: Start: 10-07-2022 Tobacco use and exposure Smokeless tobacco non-user [facility] Start: 10-07-2022 End: 02-12-2023 Alcohol intake Current drinker of alcohol (finding) [facility] Start: 10-06-2022 History SDOH Financial 5 [facility] Start: 10-06-2022 History SDOH Food Worry 1 [facility] Start: 10-06-2022 History SDOH Transpo rt Med 2 [facility] Start: 10-07-2022 Tobacco Comment quit 2 weeks ago [facility] Start: 11-05-2014 [facility] Start: 1950 Sex Assigned At Not on file C [facility] Start: 10-27-2022 End: 11-13-[address] [facility] Work Phone: How hard is it for y ou to pay for the very basics like food, housing, medical care, and heating Not hard at all [facility] Work Phone: (I/We) worried umberto er (my/our) food would run out before (I/we) got money to buy more. Never true [facility] Work Phone: In the past 12 month s, was there a time when you were not able to pay the mortgage or rent on time? No [facility] Work Phone: Medical Equipment Procedure Code Equipment Code Equipment Origin al Text Equipment Identifier Dates [place] [facility] Iii Pre-Form Mesh 90mm X 90mm X .6mm [id number] Start: 10-07-2022 Mesh Vicryl Flat Polyglactin 910 Woven [id number] Surgical Hernia Repair - [id number] Start: 08-23-2020 Screw Bone Unive rsal Neuro 3 5mm 1.5mm Self Drill Axial Stability Latex - [id number] Start: 10-07-2022 USE TO TEST GLUC OSE 2 TO 3 TIMES DAILY Start: 10-15-2022 Clinical Notes 08-24-2020 to 05-21-2023 Telephone Encounter - Dionna Sanjana S - 05/06/2023 9:45 AM ESTTelephone Encounter - Sanjana Villareal - 02/15/2023 2:14 PM EDTPaul Vazquez MD - 12/11/2022 9:00 AM EDT Note Date & Type Note Facility 05-21-2023 Note HNO ID: [id number] Author: PAUL VAZQUEZ MD Service: ? Author Type: Physician Type: Progress Notes Filed: 05/21/2023 13:35 Note Text: NEUROSURGERY FOLLOW UP OFFICE NOTE Dr. Paul Vazquez MD, FACS Date of visit: May 21, 2023 Patient Name: Mr.George Renetta Mays Date of : 1950 Current Age: [age] year old Sex: male MRN/E# [id number] Last Office Visit: February 12, 2023 CHIEF COMPLAINT: Patient presents with: Established Patient SUBJECTIVE: The patient presents as a follow-up with imaging (MRI of the) for evaluation. This is a 72-year-old male with a PMHx of colon cancer S/P colectomy with ostomy, urethral disruption, [id number]-kueg history of smoking, HTN who was initially seen for consult at [facility] on 10/06/2022 after transfer from [facility]. He presented with complaints of headache, nausea/vomiting and ataxia since 08/20/2022. Imaging showed a large 4.2 cm lesion in the right cerebellar hemisphere with impingement of the fourth ventricle without hydrocephalus. There was edema around the lesion and it was suspected that it was likely metastatic in nature. Surgical excision for diagnostic purposes and to remove tumor burden on the brain was advised. This was agreed to and completed as noted below. He did well following surgery. Pathology was discussed and he reported that he was established with Dr. Epps, Heme/Onc, for his colon-rectal cancer and planned to follow up with him. He had also been evaluated by Rad/Onc - Dr. Paula and had been updated on further treatment to include gamma knife to the tumor bed. He agreed to plan and this was completed as noted below. Since then he has been seen routinely for evaluation and has overall done well. He was last seen in the office on 02/12/2023. He denied any headache, visual changes, speech deficits, seizure activity, motor or sensory deficits. Neurologically he was intact on exam without focal deficit. MRI was reviewed and showed a good response to the treatment. No new lesions were noted. A known small falx meningioma had not changed when compared to previous imaging. Recommendation was to follow up in 3 months with MRI brain prompting his visit today. Since last visit he states he is overall doing well. He denies any new or concerning issues since last visit. . He presents for image review, evaluation and plan of care. SYMPTOMS: No PREVIOUS CONSERVATIVE TREATMENTS: None SURGICAL RISK: Smoker: Current daily -60 ppy Diabetic: Yes - A1C 9.0% - 10/06/22 Anticoagulants/Antiplatelets: No Occupation: Semi-retired PREVIOUS SURGERY: SURGERY #1: Right occipital craniotomy for tumor resection on 10/07/[address] Vazquez. FINAL DIAGNOSIS A. 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 B. 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 SURGERY #2: Gamma Knife Stereotactic Radiosurgery for metastatic tumor bed on 11/26/[address] Vazquez. 1. Right cerebellar hemisphere -15 Gy ONCOLOGY TREATMENT TEAM: Hematology/Oncology - Dr. Carmela Epps Radiation/Oncology - Dr. Chai Epps (Attending Provider) [address] [place] [address] PAIN EVALUATION No data found in the last 1 encounters. 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) Rectal cancer (HCC) 11/07/2014 Urethral disruption 12/07/2014 PAST SURGICAL HISTORY Procedure Laterality Date ANUS-ABDOMINOPERINEAL RESECTION SYNOPTIC RPT 11/23/2014 --with stoma CRNEC EXC BRAIN TUMOR INFRATENTORIAL/POST FOSSA 10/06/2022 MICROSURG TQS REQ USE OPERATING MICROSCOPE 10/06/2022 PAST SURGICAL HISTORY OF 11/23/2014 Repair of urethral injury, PAST SURGICAL HISTORY OF 11/14/2014 suprapubic catheter RPR 1ST INGUN HRNA AGE 5 YRS/> REDUCIBLE Right 09/12/2015 STRTCTC CPTR ASSTD PX CRANIAL INTRADURAL 10/06/2022 FAMILY HISTORY Problem Relation Age of Onset Heart Mother Heart attack, age 68, ALLERGIES No Known Allergies Current Outpatient Medications Medication Sig Dispense Refill atorvastatin (LIPITOR) 10 mg tablet ONETOUCH VERIO TEST STRIPS test strip USE TO TEST GLUCOSE 2 TO 3 TIMES DAILY glipiZIDE (GLUCOTROL XL) 10mg 24 hr tablet Take 5 mg by mouth once daily. SYNTHROID 125 mcg tablet Take 125 mcg by mouth once daily. lisinopril (ZESTRIL, PRINIVIL) 20 mg tablet Take 20 mg by mouth once daily. iv contrast (will be provided with radiology test) MRI Brain Inject, intravenously, once for 1 dose.No IV access, insert saline lock prior to beginning of sedation, infusion, injection of imaging exam.Discontinue saline lock post exam. If Pt. has a central line or IVAD, may access for administration according to line specific nursing protocol.Once exam is complete flush (more content not included)... [facility] 05-06-2023 Miscellaneous Notes Spoke with Genie from [facility]. She is pushing MRI Brain that was completed 05/05/23 to [facility]. documented in this encounter [facility] 02-15-2023 Miscellaneous Notes Called [facility] to schedule patient's MRI in April. I was asked to fax the order to them and told they'd reach out to him to schedule. Faxed order. Will check in a few days to ensure scheduling has been completed. documented in this encounter [facility] 02-12-2023 Note HNO ID: [id number] Author: Paul Vazquez MD Service: ? Author Type: Physician Type: Progress Notes Filed: 02/12/2023 10:01 AM Note Text: NEUROSURGERY POST OP NOTE Dr. Paul Vazquez MD, [facility] Date of visit: February 12, 2023 Patient Name: Mr.George Renetta Mays Date of : 1950 Current Age: [age] year old MRN/E# [id number] Last Office Visit: 12/11/2022 RECENT SURGERY: SURGERY: Gamma Knife Stereotactic Radiosurgery for metastatic tumor bed on 11/26/[address] Vazquez. 1. Right cerebellar hemisphere -15 Gy PREVIOUS SURGERY: SURGERY: Right occipital craniotomy for tumor resection on 10/07/[address] Vazquez. FINAL DIAGNOSIS A. 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 B. 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 Pre-Surgical Symptoms: Ataxia, gait instability, headache, nausea/vomiting SURGICAL RISK: Smoker: Current daily -60 ppy Diabetic: Yes - A1C 9.0% - 10/06/22 Anticoagulants/Antiplatelets: No Occupation: Semi-retired The patient presents for a 2.5 month post operative visit with imaging (MRI B) for evaluation. This is a 72-year-old male with a PMHx of colon cancer S/P colectomy with ostomy, urethral disruption, 91-[id number] history of smoking, HTN who was seen for consult at [facility] on 10/06/2022 after transfer from [facility]. He presented with complaints of headache, nausea/vomiting and ataxia since 08/20/2022. Imaging showed a large 4.2 cm lesion in the right cerebellar hemisphere with impingement of the fourth ventricle without hydrocephalus. There was edema around the lesion and it was suspected that it was likely metastatic in nature. Surgical excision for diagnostic purposes and to remove tumor burden on the brain was advised. This was agreed to and completed as noted above. He did well following surgery. Pathology was discussed and he reported that he was established with Dr. Epps, Heme/Onc, for his colon-rectal cancer and planned to follow up with him. He had also been evaluated by Rad/Onc - Dr. Paula and had been updated on further treatment to include gamma knife to the tumor bed. He agreed to plan and this was completed as noted above. He was last seen for a 2 week post op visit on 12/11/22 and was overall doing well. He denied any headache, visual changes, speech deficits, seizure activity, motor or sensory deficits. Neurologically he was intact on exam without focal deficit. Pin sites were healing well without signs of infection noted. Recommendation was to follow up in 2 months with MRI brain prompting his visit today. Since last visit he states that he has done very well. He denies headaches, vision changes, nausea, vomiting, dizziness, weakness, numbness, tingling, confusion or falls. He plans to contact his bilingual account manager/oncologist soon to set up an appointment. Overall, he his very pleased with his progress. He presents for image review, evaluation and plan of care. INCISION: Healed ONCOLOGY TREATMENT TEAM: Hematology/Oncology - Dr. Carmela Epps Radiation/Oncology - Dr. 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) Rectal cancer (HCC) 11/07/2014 Urethral disruption 12/07/2014 PAST SURGICAL HISTORY Procedure Laterality Date ANUS-ABDOMINOPERINEAL RESECTION SYNOPTIC RPT 11/23/2014 --with stoma CRNEC EXC BRAIN TUMOR INFRATENTORIAL/POST FOSSA 10/06/2022 MICROSURG TQS REQ USE OPERATING MICROSCOPE 10/06/2022 PAST SURGICAL HISTORY OF 11/23/2014 Repair of urethral injury, PAST SURGICAL HISTORY OF 11/14/2014 suprapubic catheter RPR 1ST INGUN HRNA AGE 5 YRS/> REDUCIBLE Right 09/12/2015 STRTCTC CPTR ASSTD PX CRANIAL INTRADURAL 10/06/2022 FAMILY HISTORY Problem Relation Age of Onset Heart Mother Heart attack, age 68, ALLERGIES No Known Allergies Current Outpatient Medications Medication Sig Dispense Refill amLODIPine (NORVASC) 5 mg tablet iv contrast (will be provided with radiology test) MRI Brain Inject, intravenously, once for 1 dose.No IV access, insert saline lock prior to beginning of sedation, infusion, injection of imaging exam.Discontinue saline lock post exam. If Pt. has a central line or IVAD, may access for administration according to line specific nursing protocol.Once exam is complete flush line and de-access according to line specific nursing protocol in the MR contrast administration guidelines link 1 Each 0 ONETOUCH VERIO TEST STRIPS test strip USE TO TEST GLUCOSE 2 TO 3 TIMES DAILY glipiZIDE (GLUCOTROL XL) 10mg 24 hr tablet Take 5 mg by mouth once daily. SYNTHROID 125 mcg tablet Take 125 mcg by mouth once daily. lisinopril (ZESTR (more content not included)... [facility] 12-11-2022 Note HNO ID: [id number] Author: Paul Vazquez MD Service: ? Author Type: Physician Type: Progress Notes Filed: 12/11/2022 9:13 AM Note Text: NEUROSURGERY POST OP NOTE Dr. Paul Vazquez MD, FACS Date of visit: December 11, 2022 Patient Name: Mr.George Renetta Mays Date of : 1950 Current Age: [age] year old MRN/E# [id number] Last Office Visit: Postop RECENT SURGERY: SURGERY: Gamma Knife Stereotactic Radiosurgery for metastatic tumor bed on 11/26/[address] Vazquez. 1. Right cerebellar hemisphere -15 Gy PREVIOUS SURGERY: SURGERY: Right occipital craniotomy for tumor resection on 10/07/[address] Vazquez. FINAL DIAGNOSIS A. 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 B. 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 Pre-Surgical Symptoms: Ataxia, gait instability, headache, nausea/vomiting Patient presents for their 1 post operative visit. This is a 72-year-old male with a PMHx of colon cancer S/P colectomy with ostomy, urethral disruption, [id number]-tlpr history of smoking, HTN who was seen for consult at [facility] on 10/06/2022 after transfer from [facility]. He presented with complaints of headache, nausea/vomiting and ataxia since 08/20/2022. He reported that his gait and balance have been compensated but worsened recently. Imaging was reviewed and showed a large 4.2 cm lesion in its maximum diameter in the right cerebellar hemisphere with impingement and tilt of the fourth ventricle without hydrocephalus. There was note of edema around the lesion and it was suspected that the cyst was most likely metastatic in nature. Surgical excision for diagnostic purposes and to remove tumor burden on the brain was advised. This was agreed to and completed as noted above. He did well following surgery and was last seen in the office on 10/27/2022 and reported that he was overall doing well. He denied any headache, visual changes, speech deficits, seizure activity, motor or sensory deficits. Pathyology was discussed and he reported that he was established with Dr. Epps, [facility]/Onc, for his colon-rectal cancer and he had not been seen by him since surgery. Neurologically he was intact on exam without focal deficit. His incision was healing well without any evidence of infection, fluid collection or dehiscence. He denied any headache, visual changes, speech deficits, seizure activity, motor or sensory deficits. He had been evaluated by Rad/Onc - Dr. Paula and had been updated on further treatment. MRI was reviewed and recommendation was to undergo gamma knife treatment to the tumor bed. Patient agreed to plan and this was completed as noted above. Today he states he is overall doing well. He denies any headache, visual changes, speech deficits, seizure activity, motor or sensory deficits. He presents for evaluation and plan of care. INCISION: Pin sites x 4 well healed no signs of infection SURGICAL RISK: Smoker: Current daily -60 ppy Diabetic: Yes - A1C 9.0% - 10/06/22 Anticoagulants/Antiplatelets: No Occupation: Semi-retired TREATMENT TEAM: [facility]/Onc - Dr. 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) Rectal cancer (HCC) 11/07/2014 Urethral disruption 12/07/2014 PAST SURGICAL HISTORY Procedure Laterality Date ANUS-ABDOMINOPERINEAL RESECTION SYNOPTIC RPT 11/23/2014 --with stoma CRNEC EXC BRAIN TUMOR INFRATENTORIAL/POST FOSSA 10/06/2022 MICROSURG TQS REQ USE OPERATING MICROSCOPE 10/06/2022 PAST SURGICAL HISTORY OF 11/23/2014 Repair of urethral injury, PAST SURGICAL HISTORY OF 11/14/2014 suprapubic catheter RPR 1ST INGUN HRNA AGE 3 YRS/> REDUCIBLE Right 09/12/2015 STRTCTC CPTR ASSTD PX CRANIAL INTRADURAL 10/06/2022 FAMILY HISTORY Problem Relation Age of Onset Heart Mother Heart attack, age 68, ALLERGIES No Known Allergies Current Outpatient Medications Medication Sig Dispense Refill ONETOUCH VERIO TEST STRIPS test strip USE TO TEST GLUCOSE 2 TO 3 TIMES DAILY atorvastatin (LIPITOR) 10 mg tablet Take 10 mg by mouth once daily. glipiZIDE (GLUCOTROL XL) 10mg 24 hr tablet Take 5 mg by mouth once daily. SYNTHROID 125 mcg tablet Take 125 mcg by mouth once daily. lisinopril (ZESTRIL, PRINIVIL) 20 mg tablet Take 20 mg by mouth once daily. iv contrast (will be provided with radiology test) MRI Brain Inject, intravenously, once for 1 dose.No IV access, insert saline lock prior to beginning of sedation, infusion, injection of imaging exam.Discontinue saline lock post exam. If Pt. has a central line or IVAD, may access for administration according to line specific nursing protocol.Once exam is (more content not included)... [facility] 12-11-2022 History of Present illness Narrative NEUROSURGERY POST OP NOTE Dr. Paul Vazquez MD, FACS Date of visit: December 11, 2022 Patient Name: Mr.George Renetta Mays Date of : 1950 Current Age: [age] year old MRN/E# [id number] Last Office Visit: Postop RECENT SURGERY: SURGERY: Gamma Knife Stereotactic Radiosurgery for metastatic tumor bed on 11/26/[address] Vazquez. 1. Right cerebellar hemisphere -15 Gy PREVIOUS SURGERY: SURGERY: Right occipital craniotomy for tumor resection on 10/07/[address] Vazquez. FINAL DIAGNOSIS A. 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 B. 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 Pre-Surgical Symptoms: Ataxia, gait instability, headache, nausea/vomiting Patient presents for their 1 post operative visit. This is a 72-year-old male with a PMHx of colon cancer S/P colectomy with ostomy, urethral disruption, 11-wbfi-ltdr history of smoking, HTN who was seen for consult at [facility] on 10/06/2022 after transfer from [facility]. He presented with complaints of headache, nausea/vomiting and ataxia since 08/20/2022. He reported that his gait and balance have been compensated but worsened recently. Imaging was reviewed and showed a large 4.2 cm lesion in its maximum diameter in the right cerebellar hemisphere with impingement and tilt of the fourth ventricle without hydrocephalus. There was note of edema around the lesion and it was suspected that the cyst was most likely metastatic in nature. Surgical excision for diagnostic purposes and to remove tumor burden on the brain was advised. This was agreed to and completed as noted above. He did well following surgery and was last seen in the office on 10/27/2022 and reported that he was overall doing well. He denied any headache, visual changes, speech deficits, seizure activity, motor or sensory deficits. Pathyology was discussed and he reported that he was established with Dr. Epps, Heme/Onc, for his colon-rectal cancer and he had not been seen by him since surgery. Neurologically he was intact on exam without focal deficit. His incision was healing well without any evidence of infection, fluid collection or dehiscence. He denied any headache, visual changes, speech deficits, seizure activity, motor or sensory deficits. He had been evaluated by Rad/Onc - Dr. Paula and had been updated on further treatment. MRI was reviewed and recommendation was to undergo gamma knife treatment to the tumor bed. Patient agreed to plan and this was completed as noted above. Today he states he is overall doing well. He denies any headache, visual changes, speech deficits, seizure activity, motor or sensory deficits. He presents for evaluation and plan of care. INCISION: Pin sites x 4 well healed no signs of infection SURGICAL RISK: Smoker: Current daily -60 ppy Diabetic: Yes - A1C 9.0% - 10/06/22 Anticoagulants/Antiplatelets: No Occupation: Semi-retired TREATMENT TEAM: Heme/Onc - Dr. 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) Rectal cancer (HCC) 11/07/2014 Urethral disruption 12/07/2014 PAST SURGICAL HISTORY Procedure Laterality Date ANUS-ABDOMINOPERINEAL RESECTION SYNOPTIC RPT 11/23/2014 --with stoma CRNEC EXC BRAIN TUMOR INFRATENTORIAL/POST FOSSA 10/06/2022 MICROSURG TQS REQ USE OPERATING MICROSCOPE 10/06/2022 PAST SURGICAL HISTORY OF 11/23/2014 Repair of urethral injury, PAST SURGICAL HISTORY OF 11/14/2014 suprapubic catheter RPR 1ST INGUN HRNA AGE 5 YRS/> REDUCIBLE Right 09/12/2015 STRTCTC CPTR ASSTD PX CRANIAL INTRADURAL 10/06/2022 FAMILY HISTORY Problem Relation Age of Onset Heart Mother Heart attack, age 68, ALLERGIES No Known Allergies Current Outpatient Medications Medication Sig Dispense Refill ONETOUCH VERIO TEST STRIPS test strip USE TO TEST GLUCOSE 2 TO 3 TIMES DAILY atorvastatin (LIPITOR) 10 mg tablet Take 10 mg by mouth once daily. glipiZIDE (GLUCOTROL XL) 10mg 24 hr tablet Take 5 mg by mouth once daily. SYNTHROID 125 mcg tablet Take 125 mcg by mouth once daily. lisinopril (ZESTRIL, PRINIVIL) 20 mg tablet Take 20 mg by mouth once daily. iv contrast (will be provided with radiology test) MRI Brain Inject, intravenously, once for 1 dose.No IV access, insert saline lock prior to beginning of sedation, infusion, injection of imaging exam.Discontinue saline lock post exam. If Pt. has a central line or IVAD, may access for administration according to line specific nursing protocol.Once exam is complete flush line and de-access according to line specific nursing protocol in the MR contrast administration guidelines link [address] (PROTONIX) 40 mg tablet Take 1 tablet by mouth once daily for 14 days. 14 tablet 0 No current facility-administered medications for this visit. Review of Systems Constitutional: Negative for chills, diaphoresis (Negative for night sweats.) and fever. HENT: Negative for ear discharge and rhinorrhea. Eyes: Negative for discharge. Respiratory: Negative for cough, shortness of breath and wheezing. Cardiovascular: Negative for chest pain, palpitations and leg swelling. Gastrointestinal: Negative for constipation, diarrhea, nausea and vomiting. Endocrine: Negative for cold intolerance and heat intolerance. Genitourinary: Negative for frequency. Negative for urinary incontinence and urinary retention. Musculoskeletal: Negative for back pain, joint swelling, myalgias and neck pain. Skin: Negative for rash (Negative for hives and skin lesions.). Allergic/Immunologic: Negative for environmental allergies and food allergies. Negative for contact allergy, seasonal allergies. Neurological: Negative for dizziness, seizures, syncope, weakness, light-headedness, numbness (Negative for numbness in extremities.) and headaches. Hematological: Does not bruise/bleed easily. Psychiatric/Behavioral: The patient is not nervous/anxious. Negative for depression. PAIN EVALUATION No data found in the last 1 encounters. BP 154/98 (BP Site: Left Arm, BP Position: Sitting, BP Cuff Size: Regular Adult) Pulse 80 Ht 5' 8 (1.727 m) Wt 227 lb 1.2 oz (103 kg) BMI 34.53 kg/m PHYSICAL EXAM: Mental State : Alert, memory function unremarkable. Attention span and concentration normal for patient's age. Speech normal, no receptive or expressive speech deficit. Recent and remote memory normal. Orientation : Oriented to person, place and time. Higher Cortical Function : Intact speech and language. Spontaneous speech and comprehension normal. Fund of knowledge intact for pt level of education. Cranial Nerves : II: No visual field cut no blurring, Makes and sustains eye contact III, IV, : Normal, no double vision or drooping. Pupils equal and reactive to light. Extraocular muscles intact. No nystagmus V: Normal sensation on the face, normal jaw movements VII: No paresis on either side VIII: No gross hearing deficit IX: Good and equal shoulder shrugs XII: Tongue midline, no fasciculations Sensory: Normal Sensation in upper and lower extremities and trunk to touch and noxious stimuli. Motor: Normal muscle tone and bulk. No tremor or uncontrollable movements. No spasticity or tremor. Strength: Upper Extremities : R L Deltoid 5/5 5/5 Biceps 5/5 5/5 Triceps 5/5 5/5 Wrist Ext 5/5 5/5 Wrist Flx 5/5 5/5 Hand Int 5/5 5/5 Lower Extremities : Hip Flexors 5/5 5/5 Hip Extensors 5/5 5/5 Hip Abductors 5/5 5/5 Straight leg Neg Neg Ankle dorsiflex 5/5 5/5 Ankle Plantar 5/5 5/5 Heel Walking intact intact Toe Walking intact intact Reflexes : Biceps 2+ 2+ Triceps 2+ 2+ Wrist 2+ 2+ Patellar 2+ 2+ Achilles 2+ 2+ Emerson's Neg Neg Tinel's Neg Neg Phalen's Neg Neg Cerebellar Function : Normal finger to nose. Normal rapid alternating movements. No ataxia. Negative Romberg. Gait and Station: Normal gait. No assistive device usage. Pulmonary: Lungs without cough, audible wheeze. Respirations unlabored. Cardiac: Regular rate and rhythm. No murmer, gallop or rub. IMAGING: No new imaging ASSESSMENT/PLAN: 1. Secondary malignant neoplasm of brain (HCC) - ICD9: 198.3, ICD10: C79.31 Patient had a gamma knife treatment for a tumor bed in the right cerebellar area where a craniotomy was done for excision of lesion adenocarcinoma metastatic. He is doing very well and the sites of the pin insertions of the frame have healed. The site of his postoperative craniotomy has also healed well. He has no headache dizziness or neurological complaints. His neurological examination is normal. We will continue to follow him by having an MRI scan in 2 months. - MRI BRAIN WO/W IVCON - IV CONTRAST (RADIOLOGY PROCEDURE) Paul Vazquez MD Return in about 2 months (around 02/11/2023) for review of MRI. This note was partially generated using [employer] voice recognition system, and there may be some incorrect words, spellings, and punctuation that were not noted in checking the note before saving. documented in this encounter [facility] 11-26-2022 Note HNO ID: [id number] Author: Paul Vazquez MD Service: ? Author Type: Physician Type: Procedures Filed: 11/26/2022 6:31 PM Note Text: [facility] G[facility] KNIFE C[facility] OPERATIVE REPORT DATE : 11/26/2022 NAME: Aubrey Mays DATE : 1950 MR # : [id number] RADIATION TREATMENT START DATE AND TIME:11/26/2022 RADIATION TREATMENT END DATE AND TIME:11/26/2022 Beam on Time 43 minutes PREOPERATIVE DIAGNOSIS:Metastatic Brain tumor Bed R cerebellum. Complex Lesion 4.1 cm maximum Diameter POSTOPERATIVE DIAGNOSIS: Same OPERATION:Application of Stereotactic Apparatus and Radiosurgery ANESTHESIA: Locally injected 1% Lidocaine with Intravenous Versed and Fentanyl SURGEON: Dayana Campos RADIATION ONCOLOGIST:Matt Paula M.D. OPERATIVE INDICATIONS:The full Clinical history and indications for treatment were discussed with the pt and family in the initial Neurosurgery visit. The procedure and risk benefits and alternatives were discussed and pt asked us to proceed. Pt was made aware that the treatment may be staged into several sessions depending on the disorder being treated. OPERATIVE PROCEDURE: The pt was admitted to the [facility] Gamma Knife Center where IV access was obtained. The [employer]oV[employer]ell Stereotactic Frame was placed with the use of IV sedationand local anesthetic. The frame was placed without difficulty and appropriate stereotactic measurements were made. Pt then underwent stereotactic imaging. The scan images were then loaded in the planning computer and [employer] Gamma Plan was used to perform stereotactic radiosurgery dose planning. The Lesion/s treated was as follows: Target 1 : Location :R cerebellar Hemisphere Prescription :15 Gy to the 54% isodose line Number of Shots :41 Target Volume : 5.59 cc Max. Linear Size :4.1 cm Conformality Index :2.487 Complexity : Complex Gradient Index :2.5 Number of Fractions :1 After the usual corporate quality engineer procedures were performed stereotactic radiosurgery was delivered with the use of Gamma Knife. Following the completion of the last shot the stereotactic frame was removed and the pin sites were dressed. The Gamma Knife checklist and time outs were performed during the procedure. Pt was discharged from the Gamma Knife Center in good condition without complications and postop follow up and care reviewed with pt and family. Paul Strange M.D. [facility] 11-26-2022 Procedure note [facility] G[facility] KNIFE CENTER OPERATIVE REPORT DATE : 11/26/2022 NAME: Aubrey Mays DATE : 1950 MR # : [id number] RADIATION TREATMENT START DATE AND TIME:11/26/2022 RADIATION TREATMENT END DATE AND TIME:11/26/2022 Beam on Time 43 minutes PREOPERATIVE DIAGNOSIS:Metastatic Brain tumor Bed R cerebellum. Complex Lesion 4.1 cm maximum Diameter POSTOPERATIVE DIAGNOSIS: Same OPERATION:Application of Stereotactic Apparatus and Radiosurgery ANESTHESIA: Locally injected 1% Lidocaine with Intravenous Versed and Fentanyl SURGEON: Dayana Campos RADIATION ONCOLOGIST:Matt Paula M.D. OPERATIVE INDICATIONS:The full Clinical history and indications for treatment were discussed with the pt and family in the initial Neurosurgery visit. The procedure and risk benefits and alternatives were discussed and pt asked us to proceed. Pt was made aware that the treatment may be staged into several sessions depending on the disorder being treated. OPERATIVE PROCEDURE: The pt was admitted to the [facility] Gamma Knife Center where IV access was obtained. The Leksell Stereotactic Frame was placed with the use of IV sedationand local anesthetic. The frame was placed without difficulty and appropriate stereotactic measurements were made. Pt then underwent stereotactic imaging. The scan images were then loaded in the planning computer and [employer] Gamma Plan was used to perform stereotactic radiosurgery dose planning. The Lesion/s treated was as follows: Target 1 : Location :R cerebellar Hemisphere Prescription :15 Gy to the 54% isodose line Number of Shots :41 Target Volume : 5.59 cc Max. Linear Size :4.1 cm Conformality Index :2.487 Complexity : Complex Gradient Index :2.5 Number of Fractions :1 After the usual corporate quality engineer procedures were performed stereotactic radiosurgery was delivered with the use of Gamma Knife. Following the completion of the last shot the stereotactic frame was removed and the pin sites were dressed. The Gamma Knife checklist and time outs were performed during the procedure. Pt was discharged from the Gamma Knife Center in good condition without complications and postop follow up and care reviewed with pt and family. Paul Strange M.D. documented in this encounter [facility] 11-26-2022 Note HNO ID: [id number] Author: Ally Paula MD Service: Radiation Oncology Author Type: Physician Type: Progress Notes Filed: 11/27/2022 12:32 AM Note Text: AUBREY MAYS [id number] 11/26/2022 [facility] Department of Radiation Oncology [facility] RADIATION ONCOLOGY GAMMA KNIFE TREATMENT PLANNING NOTE For reasons stated in the consult note, AUBREY MAYS is a candidate for palliative radiosurgery. Based on review and interpretation of the relevant diagnostic studies together with the exam findings, AUBREY MAYS was imaged on 11/26/2022. The CT and MRI imaging was fused and checked in Gamma Plan by the radiation oncologist/neurosurgeon and physicist and the target volume to be treated as well as the critical normal structure(s) were delineated. After participating in the treatment planning process with neurosurgery and medical physics, I approved the best plan to deliver my prescribed course of radiosurgery. The target tissue was planned using Gamma Plan to allow for the best isodose distribution and dosimetry/DVH. The dose to normal tissue and target tissue was confirmed upon review of the calculated dose. A completed summary of this plan dated 11/26/2022 incorporated herein by reference includes dose, isodose distribution and DVH. Electronically Signed Matt Paula M.D. / DOMENICO 0:36 AM [facility] 11-26-2022 Note HNO ID: [id number] Author: Ally Paula MD Service: Radiation Oncology Author Type: Physician Type: Progress Notes Filed: 11/28/2022 12:33 AM Note Text: AUBREY MAYSMargarita [id number] 11/26/2022 [facility] Department of Radiation Oncology [facility] RADIATION ONCOLOGY: COMPLETION NOTE DATE OF TREATMENT: November 26, 2022 UNIT: Gamma Knife AREA TREATED: r cereb DISEASE: 72 year old male with colon cancer s/p chemoradiation at OSH in 2014, s/p colectomy and colostomy placement. Presenting to OSH 09/2022 with progressive headaches, nausea/vomiting, and ataxia. Imaging revealed large 4.2 cm right cerebellar lesion with impingement and tilt of fourth ventricle without hydrocephalus. S/p right occipital craniotomy for tumor resection on 10/07/[address] Vazquez (path: metastatic adenocarcinoma c/w colorectal primary). DELIVERED DOSE: 1500.0 cGy was prescribed to the 54% isodose line, which covered 100% of the target. The plan utilized 41 shots using composite sector. GTV volume = 5.59 cm3. Maximum dose = 2780.0 cGy. Maximum diameter = 4.1 cm. MD/PD = 1.853. PIV/TV = 2.487. Gradient Index = 2.5. Number of Fractions = 1. 1 separate treatment plans were devised. ELAPSED TREATMENT TIME: 83 minutes (one session). TIME IN/OUT: [id number] TOLERANCE: Excellent. RESPONSE: To be evaluated. REMARKS: The patient will follow-up in 2 months with repeat MRI scan. Authorized user was present during the entire treatment. The total treatment time was within 10% of the written directive. Staff Physician Matt Paula M.D./ :43 AM Electronically Signed cc: Valentine Brand ([facility]) [address] [place] [address] Dr. Carmela Epps [address], [address] [place] [address] T: [phone] F: [phone] Paul Vazquez MD - [facility] Allison Bolden MD - [facility] 11-26-2022 Note HNO ID: [id number] Author: RT Kian(R) Service: Radiology Author Type: Technologist Type: Progress Notes Filed: 11/26/2022 9:01 AM Note Text: Radiology Service Progress Note PATIENT NAME: Aubrey Mays DATE OF SERVICE: November 26, 2022 TIME: 8:56 AM PATIENT IDENTITY VERIFICATION COMPLETED USING TWO (2) IDENTIFIERS: Name and Date of confirmed by patient verbally and Name and Date of confirmed by identification band. FALL SCREENING: Has the patient had 2 falls in the last year or 1 fall with injury or currently using an Ambulatory Assistive Device (Walker, Cane, Wheelchair, Crutches, etc.)? Yes, Patient High Risk for Falls What interventions were put in place to prevent falls during this visit? Increased Observations by Caregivers PATIENT GENDER DATA: Male PATIENT RELEVANT IMPLANT DATA REVIEWED: Yes RADIOLOGY DEPARTMENT: CT; Exam(s) Completed: Brain PERIPHERAL IV DATA: Not applicable SIGNED BY: RT Kian(R) November 26, 2022 8:56 AM [facility] 11-26-2022 History of Present illness Narrative Radiology Service Progress Note PATIENT NAME: Aubrey Mays DATE OF SERVICE: November 26, 2022 TIME: 8:56 AM PATIENT IDENTITY VERIFICATION COMPLETED USING TWO (2) IDENTIFIERS: Name and Date of confirmed by patient verbally and Name and Date of confirmed by identification band. FALL SCREENING: Has the patient had 2 falls in the last year or 1 fall with injury or currently using an Ambulatory Assistive Device (Walker, Cane, Wheelchair, Crutches, etc.)? Yes, Patient High Risk for Falls What interventions were put in place to prevent falls during this visit? Increased Observations by Caregivers PATIENT GENDER DATA: Male PATIENT RELEVANT IMPLANT DATA REVIEWED: Yes RADIOLOGY DEPARTMENT: CT; Exam(s) Completed: Brain PERIPHERAL IV DATA: Not applicable SIGNED BY: RT Kian(R) November 26, 2022 8:56 AM documented in this encounter [facility] 11-26-2022 Note HNO ID: [id number] Author: RT Yvette(Mallory) Service: Radiology Author Type: Office Services Representative Type: Progress Notes Filed: 11/26/2022 6:58 AM Note Text: Radiology Service Progress Note PATIENT NAME: Aubrey Mays DATE OF SERVICE: November 26, 2022 TIME: 6:58 AM PATIENT IDENTITY VERIFICATION COMPLETED USING TWO (2) IDENTIFIERS: Name and Date of confirmed by patient verbally. FALL SCREENING: Has the patient had 2 falls in the last year or 1 fall with injury or currently using an Ambulatory Assistive Device (Walker, Cane, Wheelchair, Crutches, etc.)? No PATIENT GENDER DATA: Male PATIENT RELEVANT IMPLANT DATA REVIEWED: Yes RADIOLOGY DEPARTMENT: MR; Exam(s) Completed: Head: Localization PERIPHERAL IV DATA: Site assessment: Clean,Dry and Intact, Site disposition Left in for next appointment SIGNED BY: RT Yvette(R) November 26, 2022 6:58 AM [facility] 11-26-2022 Note HNO ID: [id number] Author: Gail Del Rosario RN Service: Nursing Author Type: Registered Nurse Type: Progress Notes Filed: 11/26/2022 6:47 AM Note Text: Radiology Service Progress Note DATE OF SERVICE: November 26, 2022 TIME: 6:40 AM PATIENT WEIGHT: 227LBS PATIENT IDENTITY VERIFICATION COMPLETED USING TWO (2) STANDARD IDENTIFIERS: Name and Date of confirmed by patient verbally and Name and Date of confirmed by identification band. FALL SCREENING: Has the patient had 2 falls in the last year or 1 fall with injury or currently using an Ambulatory Assistive Device (Walker, Cane, Wheelchair, Crutches, etc.)? No PATIENT GENDER DATA: Male ALLERGIES: Reviewed and unchanged CONTRAST ALLERGY: No EXAM: MRI - CONTRAST TYPE: GROUP II IV SITE: Ambulatory: A peripheral IV was started in the Right forearm with a Angio cath: 22 gauge. and A Saline lock was inserted per protocol IV SITE APPEARANCE: Clean,Dry and Intact SIGNATURE: Gail Del Rosario RN PATIENT NAME: Aubrey Mays DATE: November 26, 2022 TIME: 6:40 AM [facility] 11-26-2022 Note HNO ID: [id number] Author: Katie Cardona RN Service: ? Author Type: Registered Nurse Type: Progress Notes Filed: 11/26/2022 12:43 PM Note Text: November 26, 2022 0608 Aubrey Mays arrived ambulatory with post MRI imaging. Aubrey arrived for GKRS ID verified with patient: name and ; ID band applied, allergies reviewed Katie Cardona RN Aubrey assessed for the following: Does Aubrey have any pain? No. Pain 0 on scale of 0-10 Does Aubrey have: Unintentional weight loss or gain of greater than 10 pounds due to a change of appetite and/or intake: No Difficulty Chewing/Swallowing: No Fall Risk Assessment: At risk due to: versed to be given prior to frame placement. Concerns for physical/emotional abuse: No Patient Allergies Reviewed: Yes Glasses: No. Dentures:Yes Hearing Aid: No Transportation verification: family Is patient on immunotherapy? No. HANDP Completion Date: . IV Access Site: right arm #22 angiocath placed prior to arrival to GK. Katie Cardona RN Aubrey positioned in up-right position for stereotactic frame application UNIVERSAL PROTOCOL / SAFETY CHECKLIST: Procedure to be Performed: Gamma Knife Head-frame Placement Sign-In Communication: Completed 802 Time Out: Team confirms the Correct Patient, Correct Procedure, Correct Site, Site Marking, AND Correct Position. Katie Cardona RN 804 IV Versed 1.5 mg per order of Dr. Reji Vazquez for anxiolysis, Katie Cardona RN. Falls Risk Assessment: Patient now at risk for falls d/t administration of versed for frame placement. 841 Head Frame: Elekta 4-Post 2381 and pin set: T-003 used for frame placement by Dr. Reji Vazquez. Post-Frame Scannin Report called to ARIELA Euceda in imaging; transported to CT scan via cart. 901 Aubrey returned to [facility] waiting with family. Nutrition offered. Aubrey updated regarding treatment planning. 1025 Decadron 4 mg pre-GK per order of Dr. Reji Vazquez, Katie Cardona RN Aubrey Pain Assessment: No. Pain 0 on scale of 0-10 1035 GKRS treatment start time. 1158 GKRS treatment end time. 1215 Head frame removed; four pin site wounds cleansed with hydrogen peroxide, antibiotic ointment applied, Band-Aids to Frontal area pin sites. IV access d/c'd. Katie Cardona RN Aubrey Pain Assessment: Yes: LOCATION: right anterior pin site. 09/23 1225 Tylenol 650 mg PO given for pain per MD order Aubrey is able to move within pre-procedural abilities. Discharge Information: Written and verbal post-procedural discharge instructions given to Aubrey with stated understanding. Reviewed pin site care of cleansing pin sites twice per day and application of antibiotic ointment to sites. May take Ibuprofen, Tylenol, or non-aspirin pain medication for discomfort post GK treatment. Discharge Prescriptions eScripted to Pharmacy of Choice: Yes [facility]. Contact phone numbers for [facility] RN desk hours of availability, Dr. Reji Vazquez's clinic telephone number, and [facility] local and toll free numbers given to Aubrey and family/visitors. 1230 Post medication pain: Yes: LOCATION: Right anterior pin site. Pt states tolerbale for discharge home. 1230 Aubrey left in wheelchair with family Katie Cardona RN [facility] 11-26-2022 History of Present illness Narrative Radiology Service Progress Note DATE OF SERVICE: November 26, 2022 TIME: 6:40 AM PATIENT WEIGHT: 227LBS PATIENT IDENTITY VERIFICATION COMPLETED USING TWO (2) STANDARD IDENTIFIERS: Name and Date of confirmed by patient verbally and Name and Date of confirmed by identification band. FALL SCREENING: Has the patient had 2 falls in the last year or 1 fall with injury or currently using an Ambulatory Assistive Device (Walker, Cane, Wheelchair, Crutches, etc.)? No PATIENT GENDER DATA: Male ALLERGIES: Reviewed and unchanged CONTRAST ALLERGY: No EXAM: MRI - CONTRAST TYPE: GROUP II IV SITE: Ambulatory: A peripheral IV was started in the Right forearm with a Angio cath: 22 gauge. and A Saline lock was inserted per protocol IV SITE APPEARANCE: Clean,Dry and Intact SIGNATURE: Gail Del Rosario RN PATIENT NAME: Aubrey Mays DATE: November 26, 2022 TIME: 6:40 AM Radiology Service Progress Note PATIENT NAME: Aubrey Mays DATE OF SERVICE: November 26, 2022 TIME: 6:58 AM PATIENT IDENTITY VERIFICATION COMPLETED USING TWO (2) IDENTIFIERS: Name and Date of confirmed by patient verbally. FALL SCREENING: Has the patient had 2 falls in the last year or 1 fall with injury or currently using an Ambulatory Assistive Device (Walker, Cane, Wheelchair, Crutches, etc.)? No PATIENT GENDER DATA: Male PATIENT RELEVANT IMPLANT DATA REVIEWED: Yes RADIOLOGY DEPARTMENT: MR; Exam(s) Completed: Head: Localization PERIPHERAL IV DATA: Site assessment: Clean,Dry and Intact, Site disposition Left in for next appointment SIGNED BY: RT Yvette(R) November 26, 2022 6:58 AM documented in this encounter [facility] 11-26-2022 History of Present illness Narrative AUBREY MAYS [id number] 11/26/2022 [facility] Department of Radiation Oncology [facility] RADIATION ONCOLOGY GAMMA KNIFE TREATMENT PLANNING NOTE For reasons stated in the consult note, AUBREY MAYS is a candidate for palliative radiosurgery. Based on review and interpretation of the relevant diagnostic studies together with the exam findings, AUBREY MAYS was imaged on 11/26/2022. The CT and MRI imaging was fused and checked in Gamma Plan by the radiation oncologist/neurosurgeon and physicist and the target volume to be treated as well as the critical normal structure(s) were delineated. After participating in the treatment planning process with neurosurgery and medical physics, I approved the best plan to deliver my prescribed course of radiosurgery. The target tissue was planned using Gamma Plan to allow for the best isodose distribution and dosimetry/DVH. The dose to normal tissue and target tissue was confirmed upon review of the calculated dose. A completed summary of this plan dated 11/26/2022 incorporated herein by reference includes dose, isodose distribution and DVH. Electronically Signed Matt Paula M.D. / DOMENICO 0:36 AM documented in this encounter [facility] 11-26-2022 History of Present illness Narrative AUBREY MAYSMargarita [id number] 11/26/2022 [facility] Department of Radiation Oncology [facility] RADIATION ONCOLOGY: COMPLETION NOTE DATE OF TREATMENT: November 26, 2022 UNIT: [facility] AREA TREATED: r cereb DISEASE: 72 year old male with colon cancer s/p chemoradiation at OSH in 2014, s/p colectomy and colostomy placement. Presenting to OSH 09/2022 with progressive headaches, nausea/vomiting, and ataxia. Imaging revealed large 4.2 cm right cerebellar lesion with impingement and tilt of fourth ventricle without hydrocephalus. S/p right occipital craniotomy for tumor resection on 10/07/[address] Vazquez (path: metastatic adenocarcinoma c/w colorectal primary). DELIVERED DOSE: 1500.0 cGy was prescribed to the 54% isodose line, which covered 100% of the target. The plan utilized 41 shots using composite sector. GTV volume = 5.59 cm3. Maximum dose = 2780.0 cGy. Maximum diameter = 4.1 cm. MD/PD = 1.853. PIV/TV = 2.487. Gradient Index = 2.5. Number of Fractions = 1. 1 separate treatment plans were devised. ELAPSED TREATMENT TIME: 83 minutes (one session). TIME IN/OUT: 4874-9266 TOLERANCE: Excellent. RESPONSE: To be evaluated. REMARKS: The patient will follow-up in 2 months with repeat MRI scan. Authorized user was present during the entire treatment. The total treatment time was within 10% of the written directive. Staff Physician Matt Paula M.D./ 1:43 AM Electronically Signed cc: Valentine Brand ([facility]) [address] [facility] [address] [id number] [address] [facility] [address], [address] [place] [address] T: [phone] F: [phone] Paul Vazquez MD - [facility] Allison Bolden MD - [facility] Allison documented in this encounter [facility] 11-25-2022 Miscellaneous Notes I spoke with Aubrey regarding Gamma Knife Stereotactic Radiosurgery procedure on 11/26/22. Reviewed contents of [facility] information package. Instructed to take morning medications; can eat and drink as normal. Encouraged patient to take any pain medications as ordered/needed and to bring any medications that they may take throughout the day so as not to miss any doses. Instructed Aubrey to report to ME- at 0630. Patient instructed to disregard any other emails, phone calls, or Georgina Goodmanhart messages regarding arrival time. Directions given regarding saw tailer parking at the [facility] entrance. Patient notified they are permitted to have 2 visitors accompany them to their appointment per [facility] policy. All questions answered and Aubrey receptive to information and verbalized understanding. Katie Cardona RN documented in this encounter [facility] 11-18-2022 Miscellaneous Notes Called and spoke with the pt. Went over the plan for the day of GK, directions and where to report. Made sure to remind them to bring any medications pt may need as they will be here the majority of the day. Additionally, let them know the GK team will call them the day before with arrival time. He verbalized understanding. Blanquita Perdomo RN BSN [employer] Supervisor documented in this encounter [facility] 11-13-2022 Note HNO ID: [id number] Author: Paul Vazquez MD Service: ? Author Type: Physician Type: Progress Notes Filed: 11/16/2022 1:54 PM Note Text: NEUROSURGERY POST OP NOTE Dr. Paul Vazquez MD, [facility] Date of visit: November 13, 2022 Patient Name: Mr.George Renetta Mays Date of : 1950 Current Age: [age] year old MRN/E# [id number] Last Office Visit: 10/27/2022 SURGERY: Right occipital craniotomy for tumor resection on 10/07/[address] Vazquez. FINAL DIAGNOSIS A. 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 B. 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 Pre-Surgical Symptoms: Ataxia, gait instability, headache, nausea/vomiting Patient presents for a post operative visit with imaging (MRI B) for evaluation. This is a 72-year-old male with a PMHx of colon cancer S/P colectomy with ostomy, urethral disruption, 23-mqfz-glkm history of smoking, HTN who was seen for consult at [facility] on 10/06/2022 after transfer from [facility]. He presented with complaints of headache, nausea/vomiting and ataxia since 08/20/2022. He reported that his gait and balance have been compensated but worsened recently. Imaging was reviewed and showed a large 4.2 cm lesion in its maximum diameter in the right cerebellar hemisphere with impingement and tilt of the fourth ventricle without hydrocephalus. There was note of edema around the lesion and it was suspected that the cyst was most likely metastatic in nature. Surgical excision for diagnostic purposes and to remove tumor burden on the brain was advised. This was agreed to and completed as noted above. He did well following surgery and recommendation was to continue on a Decadron taper and to follow-up for an office visit and suture removal 10 days postop. He was last seen on 10/27/2022 and reported that he was overall doing well. He denied any headache, visual changes, speech deficits, seizure activity, motor or sensory deficits. His Heme/Onc for his colon-rectal cancer is Dr. Epps and he had not been seen by him since surgery. Neurologically he was intact on exam without focal deficit. His incision was healing well without any evidence of infection, fluid collection or dehiscence. Recommendation was to obtain an MRI of the brain in the next week for evaluation and consideration of gamma knife radiation therapy prompting his visit today. Since last visit he states he is overall doing well. He Denies headache, visual changes, speech deficits, seizure activity, motor or sensory deficits. He was evaluated by Rad/Onc - Dr. Paula and has been updated on further treatment. He is pleased with his surgical outcome. He presents for image review, evaluation and plan of care. Smoker: Current daily -60 ppy Diabetic: Yes - A1C 9.0% - 10/06/22 Anticoagulants/Antiplatelets: No Occupation: Semi-retired Incision: Healed Heme/Onc - Dr. Carmela Epps (Attending Provider) [address] [place] [address] 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) Rectal cancer (HCC) 11/07/2014 Urethral disruption 12/07/2014 PAST SURGICAL HISTORY Procedure Laterality Date ANUS-ABDOMINOPERINEAL RESECTION SYNOPTIC RPT 11/23/2014 --with stoma CRNEC EXC BRAIN TUMOR INFRATENTORIAL/POST FOSSA 10/06/2022 MICROSURG TQS REQ USE OPERATING MICROSCOPE 10/06/2022 PAST SURGICAL HISTORY OF 11/23/2014 Repair of urethral injury, PAST SURGICAL HISTORY OF 11/14/2014 suprapubic catheter RPR 1ST INGUN HRNA AGE 5 YRS/> REDUCIBLE Right 09/12/2015 STRTCTC CPTR ASSTD PX CRANIAL INTRADURAL 10/06/2022 FAMILY HISTORY Problem Relation Age of Onset Heart Mother Heart attack, age 68, ALLERGIES Allergen Reactions Amoxicillin GI Upset Current Outpatient Medications Medication Sig Dispense Refill TRADJENTA 5 mg tab Take 5 mg by mouth once daily. ONETOUCH VERIO TEST STRIPS test strip USE TO TEST GLUCOSE 2 TO 3 TIMES DAILY atorvastatin (LIPITOR) 10 mg tablet Take 10 mg by mouth once daily. glipiZIDE (GLUCOTROL XL) 10mg 24 hr tablet Take 5 mg by mouth once daily. amLODIPine (NORVASC) 5 mg tablet Take 5 mg by mouth once daily. nebivolol (BYSTOLIC) 10 mg tablet Take 10 mg by mouth once daily. SYNTHROID 125 mcg tablet Take 125 mcg by mouth once daily. lisinopril (ZESTRIL, PRINIVIL) 20 mg tablet Take 20 mg by mouth once daily. pantoprazole DR (PROTONIX) 40 mg tablet Take 1 tablet by mouth once daily for 14 days. 14 tablet 0 No current facility-administered medications for this visit. Review of Systems Constitutional: Negative for chills, diaphoresis (Negative for night sweats.) and fever. HENT: Negative for ear discharge and rhinorrhea. Eyes: Negative for discharge. Respiratory: Neg (more content not included)... [facility] 11-13-2022 Note HNO ID: [id number] Author: RT Kalpesh(R) Service: Radiology Author Type: Technologist Type: Progress Notes Filed: 11/13/2022 2:36 PM Note Text: Radiology Service Progress Note DATE OF SERVICE: November 13, 2022 TIME: 2:35 PM PATIENT IDENTITY VERIFICATION COMPLETED USING TWO (2) STANDARD IDENTIFIERS: Name and Date of confirmed by patient verbally. FALL SCREENING: Has the patient had 2 falls in the last year or 1 fall with injury or currently using an Ambulatory Assistive Device (Walker, Cane, Wheelchair, Crutches, etc.)? No PATIENT GENDER DATA: Male PATIENT RELEVANT IMPLANT DATA REVIEWED: Yes ALLERGIES: Reviewed and unchanged CONTRAST ALLERGY: NO. EXAM: MRI - CONTRAST TYPE: GROUP II PERIPHERAL IV DATA: Ambulatory: A peripheral IV was started in the Right hand with a Butterfly: 25 gauge. RADIOLOGY DEPARTMENT: MR; Exam(s) Completed: Head: Routine Brain SIGNATURE: Genie Borton, RT(R) PATIENT NAME: Aubrey Mays DATE: November 13, 2022 TIME: 2:35 PM [facility] 11-13-2022 History of Present illness Narrative NEUROSURGERY POST OP NOTE Dr. Paul Vazquez MD, FACS Date of visit: November 13, 2022 Patient Name: Mr.George Renetta Mays Date of : 1950 Current Age: [age] year old MRN/E# [id number] Last Office Visit: 10/27/2022 SURGERY: Right occipital craniotomy for tumor resection on 10/07/[address] Vazquez. FINAL DIAGNOSIS A. 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 B. 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 Pre-Surgical Symptoms: Ataxia, gait instability, headache, nausea/vomiting Patient presents for a post operative visit with imaging (MRI B) for evaluation. This is a 72-year-old male with a PMHx of colon cancer S/P colectomy with ostomy, urethral disruption, 98-nbyx-sirn history of smoking, HTN who was seen for consult at [facility] on 10/06/2022 after transfer from [facility]. He presented with complaints of headache, nausea/vomiting and ataxia since 08/20/2022. He reported that his gait and balance have been compensated but worsened recently. Imaging was reviewed and showed a large 4.2 cm lesion in its maximum diameter in the right cerebellar hemisphere with impingement and tilt of the fourth ventricle without hydrocephalus. There was note of edema around the lesion and it was suspected that the cyst was most likely metastatic in nature. Surgical excision for diagnostic purposes and to remove tumor burden on the brain was advised. This was agreed to and completed as noted above. He did well following surgery and recommendation was to continue on a Decadron taper and to follow-up for an office visit and suture removal 10 days postop. He was last seen on 10/27/2022 and reported that he was overall doing well. He denied any headache, visual changes, speech deficits, seizure activity, motor or sensory deficits. His Heme/Onc for his colon-rectal cancer is Dr. Epps and he had not been seen by him since surgery. Neurologically he was intact on exam without focal deficit. His incision was healing well without any evidence of infection, fluid collection or dehiscence. Recommendation was to obtain an MRI of the brain in the next week for evaluation and consideration of gamma knife radiation therapy prompting his visit today. Since last visit he states he is overall doing well. He Denies headache, visual changes, speech deficits, seizure activity, motor or sensory deficits. He was evaluated by Rad/Onc - Dr. Paula and has been updated on further treatment. He is pleased with his surgical outcome. He presents for image review, evaluation and plan of care. Smoker: Current daily -60 ppy Diabetic: Yes - A1C 9.0% - 10/06/22 Anticoagulants/Antiplatelets: No Occupation: Semi-retired Incision: Healed Heme/Onc - Dr. Carmela Epps (Attending Provider) [address] [place] [address] 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) Rectal cancer (HCC) 11/07/2014 Urethral disruption 12/07/2014 PAST SURGICAL HISTORY Procedure Laterality Date ANUS-ABDOMINOPERINEAL RESECTION SYNOPTIC RPT 11/23/2014 --with stoma CRNEC EXC BRAIN TUMOR INFRATENTORIAL/POST FOSSA 10/06/2022 MICROSURG TQS REQ USE OPERATING MICROSCOPE 10/06/2022 PAST SURGICAL HISTORY OF 11/23/2014 Repair of urethral injury, PAST SURGICAL HISTORY OF 11/14/2014 suprapubic catheter RPR 1ST INGUN HRNA AGE 5 YRS/> REDUCIBLE Right 09/12/2015 STRTCTC CPTR ASSTD PX CRANIAL INTRADURAL 10/06/2022 FAMILY HISTORY Problem Relation Age of Onset Heart Mother Heart attack, age 68, ALLERGIES Allergen Reactions Amoxicillin GI Upset Current Outpatient Medications Medication Sig Dispense Refill TRADJENTA 5 mg tab Take 5 mg by mouth once daily. ONETOUCH VERIO TEST STRIPS test strip USE TO TEST GLUCOSE 2 TO 3 TIMES DAILY atorvastatin (LIPITOR) 10 mg tablet Take 10 mg by mouth once daily. glipiZIDE (GLUCOTROL XL) 10mg 24 hr tablet Take 5 mg by mouth once daily. amLODIPine (NORVASC) 5 mg tablet Take 5 mg by mouth once daily. nebivolol (BYSTOLIC) 10 mg tablet Take 10 mg by mouth once daily. SYNTHROID 125 mcg tablet Take 125 mcg by mouth once daily. lisinopril (ZESTRIL, PRINIVIL) 20 mg tablet Take 20 mg by mouth once daily. pantoprazole DR (PROTONIX) 40 mg tablet Take 1 tablet by mouth once daily for 14 days. 14 tablet 0 No current facility-administered medications for this visit. Review of Systems Constitutional: Negative for chills, diaphoresis (Negative for night sweats.) and fever. HENT: Negative for ear discharge and rhinorrhea. Eyes: Negative for discharge. Respiratory: Negative for cough, shortness of breath and wheezing. Cardiovascular: Negative for chest pain, palpitations and leg swelling. Gastrointestinal: Negative for constipation, diarrhea, nausea and vomiting. Endocrine: Negative for cold intolerance and heat intolerance. Genitourinary: Negative for frequency. Negative for urinary incontinence and urinary retention. Musculoskeletal: Negative for back pain, joint swelling, myalgias and neck pain. Skin: Negative for rash (Negative for hives and skin lesions.). Allergic/Immunologic: Negative for environmental allergies and food allergies. Negative for contact allergy, seasonal allergies. Neurological: Negative for dizziness, seizures, syncope, weakness, light-headedness, numbness (Negative for numbness in extremities.) and headaches. Hematological: Does not bruise/bleed easily. Psychiatric/Behavioral: The patient is not nervous/anxious. Negative for depression. PAIN EVALUATION No data found in the last 1 encounters. BP 147/90 (BP Site: Left Arm, BP Position: Sitting, BP Cuff Size: Regular Adult) Pulse 71 Ht 5' 8 (1.727 m) Wt 227 lb 1.2 oz (103 kg) SpO2 98% BMI 34.53 kg/m PHYSICAL EXAM: Mental State : Alert, memory function unremarkable. Attention span and concentration normal for patient's age. Speech normal, no receptive or expressive speech deficit. Recent and remote memory normal. Orientation : Oriented to person, place and time. Higher Cortical Function : Intact speech and language. Spontaneous speech and comprehension normal. Fund of knowledge intact for pt level of education. Cranial Nerves : II: No visual field cut no blurring, Makes and sustains eye contact III, IV, : Normal, no double vision or drooping. Pupils equal and reactive to light. Extraocular muscles intact. No nystagmus V: Normal sensation on the face, normal jaw movements VII: No paresis on either side VIII: No gross hearing deficit IX: Good and equal shoulder shrugs XII: Tongue midline, no fasciculations Sensory: Normal Sensation in upper and lower extremities and trunk to touch and noxious stimuli. Motor: Normal muscle tone and bulk. No tremor or uncontrollable movements. No spasticity or tremor. Strength: Upper Extremities : R L Deltoid /5 5/5 Biceps /5 5/5 Triceps 5/5 5/5 Wrist Ext /5 5/5 Wrist Flx / 5/5 Hand Int / 5/5 Lower Extremities : Hip Flexors / 5/5 Hip Extensors / 5/5 Hip Abductors / 5/5 Straight leg Neg Neg Ankle dorsiflex / 5/5 Ankle Plantar / 5/5 Heel Walking intact intact Toe Walking intact intact Reflexes : Biceps 2+ 2+ Triceps 2+ 2+ Wrist 2+ 2+ Patellar 2+ 2+ Achilles 2+ 2+ Emerson's Neg Neg Tinel's Neg Neg Phalen's Neg Neg Cerebellar Function : Normal finger to nose. Normal rapid alternating movements. No ataxia. Negative Romberg. Gait and Station: Normal gait. No assistive device usage. Pulmonary: Lungs without cough, audible wheeze. Respirations unlabored. Cardiac: Regular rate and rhythm. No murmer, gallop or rub. IMAGING: MRI Brain WO/W IVCON performed today 11/13/22 demonstrates: Report is pending but to me the tumor bed area is well defined compared to the postop CAT scan. I did not see any other lesions in the infra or supratentorial region. ASSESSMENT/PLAN: 1. Secondary malignant neoplasm of brain (HCC) - ICD9: 198.3, ICD10: C79.31 Patient is status post resection of adenocarcinoma metastasis from the right cerebellum. He was doing very well and at present has no dizziness or imbalance or weakness. The craniotomy site is flat and there is no evidence of infection or fluid collection. His neurological examination is normal. Our recommendation is for gamma knife treatment and he has already seen Dr. Paula and I anticipate we can do his treatment in the next 2 weeks. I described the procedure to him and his and we gave him information to read about it. Paul Vazquez MD Return in about 13 days (around 11/26/2022) for Gamma knife at [facility]. This note was partially generated using [employer] voice recognition system, and there may be some incorrect words, spellings, and punctuation that were not noted in checking the note before saving. documented in this encounter [facility] 11-13-2022 History of Present illness Narrative Radiology Service Progress Note DATE OF SERVICE: November 13, 2022 TIME: 2:35 PM PATIENT IDENTITY VERIFICATION COMPLETED USING TWO (2) STANDARD IDENTIFIERS: Name and Date of confirmed by patient verbally. FALL SCREENING: Has the patient had 2 falls in the last year or 1 fall with injury or currently using an Ambulatory Assistive Device (Walker, Cane, Wheelchair, Crutches, etc.)? No PATIENT GENDER DATA: Male PATIENT RELEVANT IMPLANT DATA REVIEWED: Yes ALLERGIES: Reviewed and unchanged CONTRAST ALLERGY: NO. EXAM: MRI - CONTRAST TYPE: GROUP II PERIPHERAL IV DATA: Ambulatory: A peripheral IV was started in the Right hand with a Butterfly: 25 gauge. RADIOLOGY DEPARTMENT: MR; Exam(s) Completed: Head: Routine Brain SIGNATURE: RT Kalpesh(Mallory) PATIENT NAME: Aubrey Mays DATE: November 13, 2022 TIME: 2:35 PM documented in this encounter [facility] 11-11-2022 Note HNO ID: [id number] Author: Ally Paula MD Service: ? Author Type: Physician Type: Progress Notes Filed: 11/11/2022 7:21 PM Note Text: Radiation Oncology - New Patient/Consult Note PATIENT NAME: Aubrey Mays PATIENT REQUESTING PROVIDER: Leandra Bolden MD. DIAGNOSIS: 72 year old male with colon cancer s/p chemoradiation at OSH in 2014, s/p colectomy and colostomy placement. Presenting to OSH 09/2022 with progressive headaches, nausea/vomiting, and ataxia. Imaging revealed large 4.2 cm right cerebellar lesion with impingement and tilt of fourth ventricle without hydrocephalus. S/p right occipital craniotomy for tumor resection on 10/07/[address] Vazquez (path: metastatic adenocarcinoma c/w colorectal primary). HPI: The patient is a 72 year old, right handed male who presents with above diagnosis, for an opinion regarding the role of radiation therapy in the management of the patient's disease. Final recommendations will be communicated back to the requesting physician by way of the shared medical record, or letter to requesting physician via US mail. Mr. Mays has a past medical history significant for colon cancer S/P colectomy with ostomy, urethral disruption, [id number] history of smoking, HTN. PMHx significant for rectal cancer s/p colostomy, and urethral disruption with ataxia of approximately 7 weeks found to have new right cerebellar brain mass. Right suboccipital craniotomy for excision of Right cerebellar brain mass completed on 10/07/22. Presenting to OSH 09/2022 with progressive headaches, nausea/vomiting, and ataxia. Imaging revealed large 4.2 cm right cerebellar lesion with impingement and tilt of fourth ventricle without hydrocephalus. He was transferred to [facility] on 10/06/22. He underwent right occipital craniotomy for tumor resection on 10/07/[address] Vazquez. Pathology revealed metastatic adenocarcinoma compatible with origin from colorectal primary. He is scheduled for repeat MRI brain and follow up with Dr. Vazquez on 11/13/22. He presents today to discuss post operative GKRS. Today he is recovering well from surgery. He reports resolution in vertigo, imbalance, and headaches since resection. He remains independent in activities of daily living. He denies any new neurological complaints or seizures. He is accompanied by , Julita, today. Last 5 Encounter Wt Readings: Date: Wt: 11/11/2022 103 kg (227 lb) 10/27/2022 105 kg (231 lb 7.7 oz) 10/05/2022 103.7 kg (228 lb 9.9 oz) 08/23/2020 118.5 kg (261 lb 3.9 oz) 10/30/2016 119.3 kg (263 lb) ALLERGIES Allergen Reactions Amoxicillin GI Upset MEDICATIONS: TRADJENTA 5 mg tab Take 5 mg by mouth once daily. Gatekeeper SystemUCH VERIO TEST STRIPS test strip USE TO TEST GLUCOSE 2 TO 3 TIMES DAILY iv contrast (will be provided with radiology test) MRI Brain Inject, intravenously, once for 1 dose.No IV access, insert saline lock prior to beginning of sedation, infusion, injection of imaging exam.Discontinue saline lock post exam. If Pt. has a central line or IVAD, may access for administration according to line specific nursing protocol.Once exam is complete flush line and de-access according to line specific nursing protocol in the MR contrast administration guidelines link pantoprazole DR (PROTONIX) 40 mg tablet Take 1 tablet by mouth once daily for 14 days. atorvastatin (LIPITOR) 10 mg tablet Take 10 mg by mouth once daily. glipiZIDE (GLUCOTROL XL) 10mg 24 hr tablet Take 5 mg by mouth once daily. amLODIPine (NORVASC) 5 mg tablet Take 5 mg by mouth once daily. nebivolol (BYSTOLIC) 10 mg tablet Take 10 mg by mouth once daily. SYNTHROID 125 mcg tablet Take 125 mcg by mouth once daily. lisinopril (ZESTRIL, PRINIVIL) 20 mg tablet Take 20 mg by mouth once daily. 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 1 PPD x 60 years, 0.5 PPD currently Alcohol Use: None Lives in [place], [place]. COMPLETE REVIEW OF SYSTEMS: GENERAL: Negative for weight loss, fevers, chills, or night sweats. NECK: Negative for masses in the neck. RESPIRATORY: Negative for cough or shortness of breath. CARD (more content not included)... [facility] History of Present illness Narrative Radiation Oncology - New Patient/Consult Note PATIENT NAME: Aubrey Mays PATIENT REQUESTING PROVIDER: Leandra Bolden MD. DIAGNOSIS: 72 year old male with colon cancer s/p chemoradiation at OSH in 2014, s/p colectomy and colostomy placement. Presenting to OSH 09/2022 with progressive headaches, nausea/vomiting, and ataxia. Imaging revealed large 4.2 cm right cerebellar lesion with impingement and tilt of fourth ventricle without hydrocephalus. S/p right occipital craniotomy for tumor resection on 10/07/[address] Vazquez (path: metastatic adenocarcinoma c/w colorectal primary). HPI: The patient is a 72 year old, right handed male who presents with above diagnosis, for an opinion regarding the role of radiation therapy in the management of the patient's disease. Final recommendations will be communicated back to the requesting physician by way of the shared medical record, or letter to requesting physician via US mail. Mr. Mays has a past medical history significant for colon cancer S/P colectomy with ostomy, urethral disruption, [id number] history of smoking, HTN. PMHx significant for rectal cancer s/p colostomy, and urethral disruption with ataxia of approximately 7 weeks found to have new right cerebellar brain mass. Right suboccipital craniotomy for excision of Right cerebellar brain mass completed on 10/07/22. Presenting to OSH 09/2022 with progressive headaches, nausea/vomiting, and ataxia. Imaging revealed large 4.2 cm right cerebellar lesion with impingement and tilt of fourth ventricle without hydrocephalus. He was transferred to [facility] on 10/06/22. He underwent right occipital craniotomy for tumor resection on 10/07/[address] Vazquez. Pathology revealed metastatic adenocarcinoma compatible with origin from colorectal primary. He is scheduled for repeat MRI brain and follow up with Dr. Vazquez on 11/13/22. He presents today to discuss post operative GKRS. Today he is recovering well from surgery. He reports resolution in vertigo, imbalance, and headaches since resection. He remains independent in activities of daily living. He denies any new neurological complaints or seizures. He is accompanied by , Julita, today. Last 5 Encounter Wt Readings: Date: Wt: 11/11/2022 103 kg (227 lb) 10/27/2022 105 kg (231 lb 7.7 oz) 10/05/2022 103.7 kg (228 lb 9.9 oz) 08/23/2020 118.5 kg (261 lb 3.9 oz) 10/30/2016 119.3 kg (263 lb) ALLERGIES Allergen Reactions Amoxicillin GI Upset MEDICATIONS: TRADJENTA 5 mg tab Take 5 mg by mouth once daily. ONETOUCH VERIO TEST STRIPS test strip USE TO TEST GLUCOSE 2 TO 3 TIMES DAILY iv contrast (will be provided with radiology test) MRI Brain Inject, intravenously, once for 1 dose.No IV access, insert saline lock prior to beginning of sedation, infusion, injection of imaging exam.Discontinue saline lock post exam. If Pt. has a central line or IVAD, may access for administration according to line specific nursing protocol.Once exam is complete flush line and de-access according to line specific nursing protocol in the MR contrast administration guidelines link pantoprazole DR (PROTONIX) 40 mg tablet Take 1 tablet by mouth once daily for 14 days. atorvastatin (LIPITOR) 10 mg tablet Take 10 mg by mouth once daily. glipiZIDE (GLUCOTROL XL) 10mg 24 hr tablet Take 5 mg by mouth once daily. amLODIPine (NORVASC) 5 mg tablet Take 5 mg by mouth once daily. nebivolol (BYSTOLIC) 10 mg tablet Take 10 mg by mouth once daily. SYNTHROID 125 mcg tablet Take 125 mcg by mouth once daily. lisinopril (ZESTRIL, PRINIVIL) 20 mg tablet Take 20 mg by mouth once daily. 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 1 PPD x 60 years, 0.5 PPD currently Alcohol Use: None Lives in [place], [place]. COMPLETE REVIEW OF SYSTEMS: GENERAL: Negative for weight loss, fevers, chills, or night sweats. NECK: Negative for masses in the neck. RESPIRATORY: Negative for cough or shortness of breath. CARDIAC: Negative for chest pain, palpitations, murmurs, or syncopal episodes. GI: Negative for nausea, vomiting, diarrhea, constipation, or melena. +Colostomy : Negative for dysuria, hematuria, urgency, or incontinence. +frequency, PH urethral injury periop MUSCULOSKELETAL: Negative for limitations in movement, pain. +chronic BLE swelling, RLE>LLE, improving per patient. HEMATOLOGIC: Negative for bleeding or easy bruising. SKIN: Negative for rashes or other skin changes. 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 No acute distress. Neck: Normal ROM. Chest: No respiratory distress. Lungs clear to auscultation bilaterally. Heart: Regular rate and rhythm. Abdomen: Soft. Nontender. Nondistended. +colostomy Musculoskeletal: No edema. Normal ROM in extremities. Neuro: Speech fluent. CN II-XII intact. Strength intact and symmetric, 5/5 throughout. Sensation intact to light touch. Normal gait. GEORGE and FTN intact. No pronator drift. Skin: No rashes noted Hematologic: No signs of active bleeding. HPI, ROS, and PE obtained/performed by: Belen North APRN.CHANNEL WORKER RADIOLOGY/LABORATORY DATA: MRI Report MRI BRAIN WO/W IVCON Exam End: 10/06/2022 4:14 PM (Final result) Narrative: * * *Final Report* * * DATE OF EXAM: Oct 06 2022 4:14PM CARMELITA Wang - MRI BRAIN WO/W IVCON / PROCEDURE REASON: Brain/WIRE BENDER HAND neoplasm, staging * * * * Physician Interpretation * * * * EXAMINATION: MRI BRAIN WITHOUT AND WITH IV CONTRAST CLINICAL HISTORY: Brain/WIRE BENDER HAND neoplasm, staging. History of rectal cancer. TECHNIQUE: Routine brain MRI protocol without and with contrast including diffusion images. MQ: [id number] Contrast: 20 mL Dotarem IV COMPARISON: CT brain/CTA head brain from outside institution dated 10/05/2022. RESULT: Acute Change: There is no evidence of restricted diffusion to suggest an acute infarct. Hemorrhage: No evidence of prior parenchymal hemorrhage on the SWAN sequence. Mass Lesion/ Mass Effect: There is a mixed cystic and solid mass noted in the right cerebellum with surrounding edema. The solid components demonstrate abnormal enhancement. The mass measures 4.6 x 4.2 cm in AP and transverse dimension image 9:89 and measures 2.7 cm in cranial caudal dimension on image 10:29. There is a small extra-axial focus of enhancement along the right interhemispheric falx that measures 6 x 3 mm on image 9:187 suspicious for a small meningioma. There is mass effect in the posterior fossa with significant deformity of the fourth ventricle and mass effect on the right posterior brainstem. No evidence of hydrocephalus. No significant tonsillar herniation. No other abnormal contrast enhancement. Chronic Change: Scattered punctate foci of increased T2 and FLAIR signal are noted in the supratentorial white matter which is a nonspecific finding, but likely represents minimal chronic microvascular ischemia. Parenchyma: No significant volume loss for age. Ventricles: Normal caliber and morphology. Skull Base: Hypothalamic and pituitary region are grossly normal. Craniocervical junction is normal. There is no Chiari I malformation. No significant marrow replacement process. Vasculature: Major intracranial arterial structures, and dural venous sinuses show typical flow void, suggesting patency by spin echo criteria. 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 Other: Minimal mucosal thickening in both maxillary sinuses. Minimal fluid scattered in bilateral mastoid air cells. The remaining visualized paranasal sinuses and mastoid air cells are clear. The orbits and extracranial soft tissues are unremarkable. Impression: IMPRESSION: 1. Right cerebellar mixed cystic and solid mass or stranding vasogenic edema causing mass effect as detailed above. The primary differential consideration is cerebellar metastasis. A high-grade glioma, hemangioblastoma, or adult medulloblastoma felt to be less likely possibilities. 2. Minimal chronic small vessel ischemic changes of the supratentorial white matter. General Office Worker[facility] Transcribe Date/Time: Oct 06 2022 4:33P Dictated by : JOSE JUAN PRATT MD This examination was interpreted and the report reviewed and electronically signed by: JOSE JUAN PRATT MD on Oct 06 2022 4:54PM EST SURGICAL PATHOLOGY - 10/07/22: FINAL DIAGNOSIS A. 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 B. 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 Diagnosis Comment The patient is noted to have a history of rectal adenocarcinoma, status post resection in 2014. Immunohistochemical staining shows the tumor cells are positive for CK7 (patchy) and CDX2 (patchy) and negative for CK20. CK7 can be expressed in rectal adenocarcinoma, and positive staining does not argue against the diagnosis in this context. Ancillary testing for colon cancer hot spot NGS panel (BRAF, KRAS, NRAS) has been ordered from [facility] laboratory and results will be issued separately when available. The case was reviewed by Dr. Amber Rodríguez who agrees with the diagnosis. Laboratory Developed Test (LDT) Disclaimer: Performance characteristics of immunohistochemical, immunofluorescent and chromogenic in-situ hybridization tests have been determined by the performing laboratory within [facility] s [facility]ology and Laboratory [facility] [place] ([facility], [facility], [facility], [facility], [facility], or [facility]) in a manner consistent with CLIA requirements. One or more of these tests have not been cleared or approved by the FDA. [facility] is regulated under CLIA as qualified to perform high-complexity testing. These tests are used for clinical purposes. They should not be regarded as investigational or for research. Positive and negative controls stain appropriately. Gross Description A. BRAIN RESECTION Received fresh for intraoperative consultation labeled as brain tumor is a segment of red-weiss soft tissue measuring 1.5 x 0.7 x 0.4 cm. A touch prep is performed. Half of the specimen is is frozen for intraoperative consultation in cassette FS A1. The remainder of the specimen is submitted for permanents in cassette A2. B. BRAIN RESECTION Received in formalin labeled as brain tumor are multiple segments of pink soft tissue aggregating to 2.0 x 1.0 x 0.3 cm. The specimen is totally submitted in formalin in 1 cassette. Gross examination performed at [facility], [address] [place] [address] CLIA#[id number] [facility] October 08, 2022 10:30 AM Intraoperative Diagnosis A. BRAIN RESECTION FSA1 and TPA1: cerebellar mass; FSDX: metastatic carcinoma, favor colonic origin (ZM) Intraoperative examination performed at [facility], [address] [place] [address] CLIA# [id number] Clinical History Pre-op diagnosis: Cerebellar mass [G93.89] Performing Lab Diagnostic interpretation performed at [facility], [address] [place] [address] CLIA# [id number] Transmitter Engineer: Valentine Donato M.D. oncogene homolog) encodes a small self-inactivating GTP-ase that serves as a signal transducer in response to stimuli from upstream cell-surface receptors. Approximately 40 percent of colorectal cancers contain mutations in KRAS codons 12 and 13 in exon 2, with a smaller percentage having mutations in exons 3 and 4. Activating mutations in KRAS in metastatic colon cancer are associated with resistance to anti-EGFR monoclonal antibody therapy. (Boris RG, et al. J Clin Oncol 2008;26:3243-3393; Daniel Francis E et al. N Engl J Med 2009;360:7873-5010.) BRAF (B-Alcon michaela-oncogene, serine/threonine kinase) encodes a serine threonine kinase that is regulated by KRAS as part of the mitogen- activated protein kinase (MAPK) signaling pathway, which promotes cell growth and survival. The BRAF V600E mutation, which is found in 5-9 percent of colon cancers, describes the substitution of glutamic acid (E) for valine (V) at position 600 resulting in constitutive activation of the enzyme. BRAF V600E appears to be an adverse prognostic marker in colon cancer. The association of this mutation with resistance to anti-EGFR monoclonal antibody therapy has not been definitively established. (Forrest C, et al. Eur J Cancer 2012;48:1466-75; Nestor A, et al. Br J Cancer 2015; Lisandro CARMICHAEL and Davon NEWMAN. Cancer Control 2014;21:221-230.) Methodology: Following extraction of tumor DNA from microdissected FFPE, FNA, and CB specimens and library construction utilizing the custom Cancer Hotspot Panel v.1 ([employer], [place], [place]), DNA sequencing of gene mutation hotspot regions was performed on the MiSeq instrument ([employer], [place], [place]). SlimTrader software ([employer], [place], [place]) was used to analyze FASTQ files to identify hotspot mutations in requested genes. Limitations: Sequence changes outside the analyzed mutation hotspots, including intronic, noncoding, and splicing site variants, will not be identified in this test. Insertions and deletions larger than the 20 and 40 bp, respectively, may not be identified in this test. The lower limit of detection of this assay is approximately 5% allele proportion. Variants below 5% allele proportion may be reported at the discretion of the molecular pathology professional staff if the technical quality of the sequencing is sufficient at that location and the call is unequivocal. Negative results from specimens for which the percentage of tumor cells is 10% or less should be interpreted with caution. A minimum coverage depth of 100 reads is required across the entire region of interest. Any region below this minimum will not be resulted, and a list of low coverage areas will be included in the report as applicable. Fixation in neutral buffered formalin is preferred. Decalcification agents and fixation agents containing heavy metals (e.g., B5) or harsh acid or base components (e.g. Bouin's solution) can inhibit PCR reactions. Disclaimer: This test was developed and its performance characteristics determined by [facility] [place] ([facility]). It has not been cleared or approved by the FDA. [facility] is regulated under CLIA as certified to perform high- complexity testing. This test is used for clinical purposes. It should not be regarded as investigational or for research. Testing and interpretation performed at [facility], [address] [place] [address]. [place] Number: [id number] As reviewed by Karlee Fields, PhD, [facility] STAFF ADDENDUM I saw and evaluated the patient. I personally obtained the ware and critical portions of the history and physical exam. I reviewed Belen North's documentation and discussed the patient with her. ASSESSMENT AND PLAN: 72 year old male with colon cancer s/p chemoradiation at OSH in 2014, s/p colectomy and colostomy placement. Presenting to OSH 09/2022 with progressive headaches, nausea/vomiting, and ataxia. Imaging revealed large 4.2 cm right cerebellar lesion with impingement and tilt of fourth ventricle without hydrocephalus. S/p right occipital craniotomy for tumor resection on 10/07/[address] Vazquez (path: metastatic adenocarcinoma c/w colorectal primary). I recommend postoperative SRS to the resection cavity. Will try for single session SRS, but may need to fractionate if the resection cavity remains large. I also discussed frame versus mask. Given suboccipital craniotomy, will defer to Dr. Vazquez as to best immobilization depending on location of craniotomy. R/B/A/P/C of GKRS were discussed. He is interested in proceeding. He is seeing Dr. Vazquez later this week. He will be scheduled accordingly. GKBMET: Primary disease controlled:Yes, Extracranial disease:No, Prior systemic therapy for metastasis:No, # of brain metastases: 1, GTR of brain metastasis:Yes, Prior WBRT:Yes, Planned dose (use highest dose for multiple lesions): 15 Gy Head frame or mask will be used. Radiosurgery will be done in a single fraction using the Gamma Knife Icon system, which uses up to 192 beams of radiation. A head CT and brain MRI will be performed the day of the procedure. The images will be co registered for target contouring and treatment planning. The CT scan is necessary to correct for the spatial distortion of the MRI. Both scans will be evaluated by a radiologist and the results will be discussed with the patient. Signed by: Ally Paula MD cc: Valentine Brand (Juliette) [address] [place] [address] Dr. Carmela Epps [facility] [address] [place] [address], [address] [place] [address] T: [phone] F: [phone] Paul Vazquez MD - [facility] Allison Bolden MD - [facility] Allison documented in this encounter [facility] 10-29-2022 Miscellaneous Notes Called to advise patient that Dr. Vazquez will be out of the office, so we need to reschedule both of his appointments from 11/06/22. He can have his MRI and then follow up with a phone visit. Left message with his . Michelle Fierro Ma documented in this encounter [facility] 10-27-2022 Note HNO ID: [id number] Author: Paul Vazquez MD Service: ? Author Type: Physician Type: Progress Notes Filed: 10/27/2022 10:54 AM Note Text: NEUROSURGERY POST OP NOTE Dr. Paul Vazquez MD, [facility] Date of visit: October 30, 2022 Patient Name: Mr.George Renetta Mays Date of : 1950 Current Age: [age] year old MRN/E# [id number] Last Office Visit: Postop SURGERY: Right occipital craniotomy for tumor resection on 10/07/[address] Vazquez. FINAL DIAGNOSIS A. 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 B. 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 Pre-Surgical Symptoms: Ataxia, gait instability, headache, nausea/vomiting Patient presents for their 1 post operative visit. This is a 72-year-old male with a PMHx of colon cancer S/P colectomy with ostomy, urethral disruption, [id number] history of smoking, HTN who was seen for consult at [facility] on 10/06/2022 after transfer from [facility]. He presented with complaints of headache, nausea/vomiting and ataxia since 08/20/2022. He reported that his gait and balance have been compensated but worsened recently. Imaging was reviewed and showed a large 4.2 cm lesion in its maximum diameter in the right cerebellar hemisphere with impingement and tilt of the fourth ventricle without hydrocephalus. There was note of edema around the lesion and it was suspected that the cyst was most likely metastatic in nature. Surgical excision for diagnostic purposes and to remove tumor burden on the brain was advised. This was agreed to and completed as noted above. He did well following surgery and recommendation was to continue on a Decadron taper and to follow-up for an office visit and suture removal 10 days postop prompting his visit today. Since discharge he states he is overall doing well. He denies headache, visual changes, speech deficits, seizure activity, motor or sensory deficits. His Heme/Onc for his colon-rectal cancer is Dr. Epps and he has not been seen by him since surgery. He presents for evaluation and plan of care. Smoker: Current daily -60 ppy Diabetic: Yes - A1C 9.0% - 10/06/22 Anticoagulants/Antiplatelets: No Occupation: Semi-retired Incision: KASIE with sutures. No S/S of infection noted. Sutures removed without an issue Heme/Onc - Dr. Carmela Epps (Attending Provider) [address] [place] [address] PAST MEDICAL HISTORY Diagnosis Date High blood pressure Rectal cancer (HCC) 11/07/2014 Urethral disruption 12/07/2014 PAST SURGICAL HISTORY Procedure Laterality Date ANUS-ABDOMINOPERINEAL RESECTION SYNOPTIC RPT 11/23/2014 --with stoma PAST SURGICAL HISTORY OF 11/23/2014 Repair of urethral injury, PAST SURGICAL HISTORY OF -2014 suprapubic catheter RPR 1ST INGUN HRNA AGE 3 YRS/> REDUCIBLE Right 428-16 FAMILY HISTORY Problem Relation Age of Onset Heart Mother Heart attack, age 68, ALLERGIES Allergen Reactions Amoxicillin GI Upset Current Outpatient Medications Medication Sig Dispense Refill TRADJENTA 5 mg tab Take 5 mg by mouth once daily. ONETOUCH VERIO TEST STRIPS test strip USE TO TEST GLUCOSE 2 TO 3 TIMES DAILY atorvastatin (LIPITOR) 10 mg tablet Take 10 mg by mouth once daily. glipiZIDE (GLUCOTROL XL) 10mg 24 hr tablet Take 5 mg by mouth once daily. amLODIPine (NORVASC) 5 mg tablet Take 5 mg by mouth once daily. nebivolol (BYSTOLIC) 10 mg tablet Take 10 mg by mouth once daily. SYNTHROID 125 mcg tablet Take 125 mcg by mouth once daily. lisinopril (ZESTRIL, PRINIVIL) 20 mg tablet Take 20 mg by mouth once daily. iv contrast (will be provided with radiology test) MRI Brain Inject, intravenously, once for 1 dose.No IV access, insert saline lock prior to beginning of sedation, infusion, injection of imaging exam.Discontinue saline lock post exam. If Pt. has a central line or IVAD, may access for administration according to line specific nursing protocol.Once exam is complete flush line and de-access according to line specific nursing protocol in the MR contrast administration guidelines link [address] (PROTONIX) 40 mg tablet Take 1 tablet by mouth once daily for 14 days. 14 tablet 0 No current facility-administered medications for this visit. Review of Systems Constitutional: Negative for chills, diaphoresis (Negative for night sweats.) and fever. HENT: Negative for ear discharge and rhinorrhea. Eyes: Negative for discharge. Respiratory: Negative for cough, shortness of breath and wheezing. Cardiovascular: Negative for chest pain, palpitations and leg swelling. Gastrointestinal: Negative for constipation, diarrhea, nausea and vomiting. Endocrine: Negative for cold intolerance and heat intolerance. Genitourinary: Negative f (more content not included)... [facility] 10-16-2022 Miscellaneous Notes PATIENT INFORMATION Record ID: [id number] Patient Name: [facility]: [facility]: [facility] Attending: Paul Vazquez Center: Neurosurgery [facility] INSTRUCTIONS All Clear SN to remind patient of next upcoming appointment date, time, location Transfer to Core Driller Helper Manager [phone] All Clear All Clear SURVEY INFORMATION Medical/Nurse Fur Trimmer: Annika Morris 1. Your discharge instructions are important in guiding you through the recovery process. Is there anything I could help you clarify on your discharge instructions? (Standard Question) No 2. Do you have your follow up appointment related to your hospital stay scheduled within the next 30 days? (Standard Question) Yes 3. Do you have all the necessary equipment and supplies at home? (Standard Question) No MA/SN Notes: still waiting on a walker, advised Aubrey to speak with PCP as he has an appointment today 4. Many patients have concerns about their medications once they are home. Do you have any questions about getting or taking your medications? (Standard Question) No 5. Do you have any new or different symptoms? (Standard Question) No documented in this encounter [facility] 10-10-2022 Note HNO ID: [id number] Author: BLAISE Aguirre Service: Care Management Author Type: Crystal Finisher Type: Care Mgt Progress Note Filed: 10/10/2022 3:12 PM Note Text: CARE MANAGEMENT DISCHARGE NOTE SERVICE DATE: October 10, 2022 SERVICE TIME: 3:11 PM Admission Date: 10/06/2022 LOS: 4 days Discharge Arrangement Discharge Arrangement: Home with Relative Services Arranged Provider Name: Valentine Brand MD Phone: Caregiver Assessment Caregiver is ready, willing and able to meet the patient's needs as recommended by the inter-professional team: Yes Name of Caregiver: Julita Mays- spouse Transportation Arrangements Transportation Arrangements: Car Handoff Communication: Handoff to: Primary Care Physician Primary Care Physician Name/Phone: Valentine Brand MD [phone] Additional Information: n/a Discharge orders complete. Pt discharging home with spouse to transport. Outpatient PT orders are in. SIGNATURE: BLAISE Aguirre PATIENT NAME: Aubrey Mays DATE: October 10, 2022 TIME: 3:11 PM CONTACT #: [phone] [facility] 10-10-2022 Note HNO ID: [id number] Author: Julien Machado APRN.MICHAELLE Service: Neurosurgery Author Type: Nurse Practitioner Type: Progress Notes Filed: 10/15/2022 10:35 PM Note Text: Documentation Query Based on your medical judgment of the clinical indicators outlined below, please clarify the condition: (Please type X next to your response and sign) Clinical Indicators: 5/23/23, HANDP: Brain mass 10/06/2022 10/06/22, Brain MRI: Mass Lesion/ Mass Effect: There is a mixed cystic and solid mass noted in the right cerebellum with surrounding edema.The solid components demonstrate abnormal enhancement.The mass measures 4.6 x 4.2 cm in AP and transverse dimension image 9:89 and measures 2.7 cm in cranial caudal dimension on image 10:29.There is a small extra-axial focus of enhancement along the right interhemispheric falx that measures 6 x 3 mm on image 9:187 suspicious for a small meningioma.There is mass effect in the posterior fossa with significant deformity of the fourth ventricle and mass effect on the right posterior brainstem.... Please clarify if the mass effect indicates brain compression: x Brain compression ruled -in Brain compression ruled-out Other, please specify [facility] 10-10-2022 Note HNO ID: [id number] Author: Julien Machado APRN.CHANNEL WORKER Service: Neurosurgery Author Type: Nurse Practitioner Type: Progress Notes Filed: 10/10/2022 1:58 PM Note Text: Neurosurgery Progress Note SERVICE DATE: 10/10/2022 SUBJECTIVE: NAEON. Very thankful for the care he has received. Rose CRANE. OBJECTIVE: Vitals: Temp (24hrs), Av.4 ?C (97.5 ?F), Min:35.9 ?C (96.7 ?F), Max:36.6 ?C (97.9 ?F) BP 148/93 Pulse 61 Temp 36.4 ?C (97.5 ?F) (Oral) Resp 18 Ht 172.7 cm (5' 8 ) Wt 103.7 kg (228 lb 9.9 oz) SpO2 95% BMI 34.76 kg/m? O2 Therapy: Room Air IANDO: Date 10/09/22699 - 10/10/22 0610/10/22699 - 10/11/22 0659 Shift 0217-5356 4735-7071 6317-0767 24 Hour Total 5964-6694 3245-7149 0433-7109 24 Hour Total INTAKE Shift Total OUTPUT Urine 300 575 875 Void (ml) 500 500 Amount Voided Before Bladder Scan 75 75 Urine Not Saved. 1 x 1 x Output ([REMOVED] Indwelling Urinary Catheter 14 Fr 10/09/22 1056) 300 300 Ostomy 10 10 Output (mL) (Colostomy 11/24/14 LLQ) 10 10 Shift Total 300 585 885 Weight (kg) 103.7 103.7 103.7 103.7 103.7 103.7 103.7 103.7 Medications: Current Facility-Administered Medications Medication Dose Route Frequency docusate sodium 100 mg cap(s) (COLACE) 100 mg ORAL BID polyethylene glycol 3350 17 g packet 17 g ORAL DAILY acetaminophen 650 mg tab(s) (TYLENOL) 650 mg ORAL q 6 H insulin glargine 5 Units pen (long acting) 5 Units SUBCUTANEOUS DAILY (8 AM) glimepiride 2 mg tab(s) (AMARYL) 2 mg ORAL DAILY WITH BREAKFAST insulin regular human injection (short acting) (NovoLIN R,HumuLIN R) SUBCUTANEOUS q 6 H atorvastatin 10 mg tab(s) (LIPITOR) 10 mg ORAL DAILY amLODIPine 5 mg tab(s) (NORVASC) 5 mg ORAL DAILY levothyroxine 125 mcg tab(s) (SYNTHROID) 125 mcg ORAL DAILY lisinopril 20 mg tab(s) (ZESTRIL) 20 mg ORAL DAILY dextrose 15 gram/32 mL 15 g (TRUEPLUS) 15 g ORAL PRN Or glucagon 1 mg injection 1 mg INTRAMUSCULAR PRN Or dextrose 10% iv bolus 12.5 g INTRAVENOUS PRN NaCl 0.9% iv flush bag 20 mL INTRAVENOUS PRN aluminum-magnesium hydroxide-simethicone 200-200-20 mg/5 mL 30 mL 30 mL ORAL q 6 H PRN guaiFENesin 600 mg ER tab(s) (MUCINEX) 600 mg ORAL q 12 H PRN melatonin 3 mg tab(s) 3 mg ORAL AT BEDTIME PRN ondansetron (PF) 4 mg injection (ZOFRAN) 4 mg INTRAVENOUS q 6 H PRN prochlorperazine 10 mg injection (COMPAZINE) 10 mg INTRAVENOUS q 6 H PRN dexAMETHasone sodium phosphate 4 mg injection (DECADRON) 4 mg INTRAVENOUS q [address] 40 mg tab(s) (PROTONIX) 40 mg ORAL DAILY (6 AM) metoprolol succinate ER 50 mg tab(s) (TOPROL XL) 50 mg ORAL DAILY Labs: Recent Labs 10/10/22 0026 10/09/22 2248 10/09/22 0200 10/08/22 0432 NA -- 128* 131* -- K -- 4.2 4.5 -- CHLOR -- 95* 96* -- CO2 -- 22 24 -- BUN -- 44* 39* -- CREAT -- 1.09 1.13 -- GLUC -- 255* 150* -- ANION -- 11 11 -- CA -- 8.8 9.1 -- MG -- -- 2.0 1.6* P -- -- -- 3.2 WBC 13.48* -- 17.25* 13.03* HB 15.8 -- 16.4 16.3 HCT 45.8 -- 46.8 46.6 PLT 185 -- 189 163 Exam: GENERAL: No distress, Alert NEURO: AAOx3, speech clear, fluent. Subtle left dysmetria on FTN. Strength equal 5/5. No facial droop. HEENT: incision c/d/i LUNGS: Unlabored breathing CARDIAC: Regular rate and rhythm as above ABDOMEN: Soft, non-tender, non-distended EXTREMITIES: QUINTERO, No deformities, No edema SKIN: Skin color, texture, turgor normal, No rashes or lesions ASSESSMENT AND PLAN: Active Hospital Problems Diagnosis Date Noted Ataxia 10/06/2022 Primary hypertension 10/06/2022 Brain mass 10/06/2022 Type 2 diabetes mellitus without complication, without long-term current use of insulin ([facility]) 10/06/2022 Chronic Obesity, Class I, BMI 30-34.9 10/06/2022 Rectal cancer ([facility]) 11/07/2014 Aubrey Mays is a 72 year old male PMHx significant for rectal cancer s/p colostomy, and urethral disruption with ataxia of approximately 7 weeks found to have new right cerebellar brain mass. POD2 Right suboccipital craniotomy for excision of Right cerebellar brain mass - Neuro as above - - start decadron taper today. 2mg q6h x 2 days, 1 mg q6h x 2 days, 0.5mg q6h x 2 days, 0.5 bid until follow-up appointment. Protonix daily for GI ppx - Fu requested yesterday - radiation to be discussed at follow up - Discharge today - d/c education provided. Portions of text from this note were copied. All relevant information was reviewed and updated accordingly on 10/10/2022 SIGNATURE: Julien Machado APRN.CNP PATIENT NAME: Aubrey Mays DATE: October 10, 2022 TIME: 1:55 PM Pager: [phone] [facility] 10-10-2022 Note HNO ID: [id number] Author: Jarek Herrmann MD Service: Hospital Medicine Author Type: Physician Type: Progress Notes Filed: 10/10/2022 12:30 PM Note Text: Hospital Medicine Consult Progress Note Patient Name: Aubrey Mays Admission Date: 10/06/2022 Reason for Visit: DM2 IMPRESSION AND PLAN: Active Hospital Problems Diagnosis Ataxia Primary hypertension Brain mass Type 2 diabetes mellitus without complication, without long-term current use of insulin (HCC) Obesity, Class I, BMI 30-34.9 Rectal cancer (HCC) DM2 glucose is better today around 170, glipizide was resumed and also added Lantus 5 unit subcu daily due to hyperglycemia from being on dexamethasone, continue with PRN insulin coverage, No need for insulin upon discharge Brain mass patient started postsurgery on 10/07 Hypertension blood pressure was mildly elevated 159/82this morning, but patient is on norvasc 5 mg daily and lisinopril 20 mg daily. Hypothyroidism on Synthroid 125 mch daily. Bradycardia asymptomatic, patient is on Toprol Xl and is doing better now. Ok for discharge from medical point of view. Patient Checklist Prophylaxis: VTE - No. Not indicated. Code Status: Code Status: Not on file Disposition: Home Jarek Herrmann MD Interval History: Patient was seen and examined for diabetes mellitus type 2, patient is feeling better denies any fever chills, chest pain no nausea glucose still mildly elevated but better than before, plan for the patient to resume his oral diabetic medication upon discharge home. PERTINENT ROS: Temp Av.3 ?C (97.4 ?F) Min: 35.9 ?C (96.7 ?F) Max: 36.6 ?C (97.9 ?F) Pulse Av Min: 60 Max: 73 No data recorded Cuff BP Min: 119/76 Max: 156/95 Pain Level: 4 PHYSICAL EXAM: BP 148/93 Pulse 61 Temp 36.4 ?C (97.5 ?F) (Oral) Resp 18 Ht 172.7 cm (5' 8 ) Wt 103.7 kg (228 lb 9.9 oz) SpO2 95% BMI 34.76 kg/m? PHYSICAL EXAMINATION: General appearance: Patient is sitting in bed in no acute respiratory distress. Awake, alert, oriented *3. Skin: Normal temperature, no ecchymosis. Lungs: Good air entry. No wheezing, rhonchi, rales, no use of accessory respiratory muscles. Heart: RRR, normal s1s2. Abdomen: Positive for bowel sounds, soft abdomen, non-tender. Extremities: No pitting edema bilateral legs. MEDICATIONS: atorvastatin (LIPITOR) 10 mg tabletTake 10 mg by mouth once daily.Disp: Rfl: glipiZIDE (GLUCOTROL XL) 10mg 24 hr tabletTake 5 mg by mouth.Disp: Rfl: amLODIPine (NORVASC) 5 mg tabletTake by mouth.Disp: Rfl: nebivolol (BYSTOLIC) 10 mg tabletTake 10 mg by mouth once daily.Disp: Rfl: SYNTHROID 125 mcg tabletTake 125 mcg by mouth once daily.Disp: Rfl: lisinopril (ZESTRIL, PRINIVIL) 20 mg tabletDisp: Rfl: dexAMETHasone (DECADRON) 1 mg tabletTake 2 tablets by mouth every 6 hours for 2 days, THEN 1 tablet every 6 hours for 2 days, THEN 0.5 tablets every 6 hours for 2 days, THEN 0.5 tablets twice daily with meals for 8 days.Disp: 36 tabletRfl: 0 iv contrast (will be provided with radiology test)MRI Brain Inject, intravenously, once for 1 dose.No IV access, insert saline lock prior to beginning of sedation, infusion, injection of imaging exam.Discontinue saline lock post exam. If Pt. has a central line or IVAD, may access for administration according to line specific nursing protocol.Once exam is complete flush line and de-access according to line specific nursing protocol in the MR contrast administration guidelines linkDisp: 1 EachRfl: [address] (PROTONIX) 40 mg tabletTake 1 tablet by mouth once daily for 14 days.Disp: 14 tabletRfl: 0 TRADJENTA 5 mg tabTake 5 mg by mouth once daily.Disp: Rfl: metFORMIN (GLUCOPHAGE) 500 mg [id number] mg.Disp: Rfl: indapamide (LOZOL) 1.25 mg tabletTake 1.25 mg by mouth once daily.Disp: Rfl: doxazosin (CARDURA) 2 mg tabletTake 2 mg by mouth daily at bedtime.Disp: Rfl: Current Facility-Administered Medications Medication Dose Route Frequency atorvastatin 10 mg tab(s) (LIPITOR) 10 mg ORAL DAILY amLODIPine 5 mg tab(s) (NORVASC) 5 mg ORAL DAILY levothyroxine 125 mcg tab(s) (SYNTHROID) 125 mcg ORAL DAILY lisinopril 20 mg tab(s) (ZESTRIL) 20 mg ORAL DAILY dextrose 15 gram/32 mL 15 g (TRUEPLUS) 15 g ORAL PRN Or glucagon 1 mg injection 1 mg INTRAMUSCULAR PRN Or dextrose 10% iv bolus 12.5 g INTRAVENOUS PRN NaCl 0.9% iv flush bag 20 mL INTRAVENOUS PRN aluminum-magnesium hydroxide-simethicone 200-200-20 mg/5 mL 30 mL 30 mL ORAL q 6 H PRN guaiFENesin 600 mg ER tab(s) (MUCINEX) 600 mg ORAL q 12 H PRN melatonin 3 mg tab(s) 3 mg ORAL AT BEDTIME PRN ondansetron (PF) 4 mg injection (ZOFRAN) 4 mg INTRAVENOUS q 6 H PRN prochlorperazine 10 mg injection (COMPAZINE) 10 mg INTRAVENOUS q 6 H PRN dexAMETHasone sodium phosphate 4 mg injection (DECADRON) 4 mg INTRAVENOUS q [address] 40 mg t (more content not included)... [facility] 10-09-2022 Note HNO ID: [id number] Author: Savannah Hernandes PA-C Service: Neurosurgery Author Type: Physician Fur Trimmer Type: Progress Notes Filed: 10/09/2022 1:39 PM Note Text: Neurosurgery Progress Note SERVICE DATE: 10/09/2022 SUBJECTIVE: NAEON. Patient denies post-operative pain. He denies headaches, N/V, dizziness. He had his giles removed this morning. No BM in colostomy bag yet. OBJECTIVE: Vitals: Temp (24hrs), Av.5 ?C (97.7 ?F), Min:36.2 ?C (97.2 ?F), Max:36.6 ?C (97.9 ?F) BP 156/99 Pulse 63 Temp 36.2 ?C (97.2 ?F) (Oral) Resp 18 Ht 172.7 cm (5' 8 ) Wt 103.7 kg (228 lb 9.9 oz) SpO2 95% BMI 34.76 kg/m? O2 Therapy: Room Air IANDO: Date 10/08/22699 - 10/09/2259 10/09/22 07 - 10/10/22 0659 Shift 7106-8857 0337-0708 2021-8840 24 Hour Total 6771-4707 6720-4196 3326-3089 24 Hour Total INTAKE PO 360 360 PO 360 360 Shift Total 360 360 OUTPUT Urine 200 300 450 950 300 300 Output ([REMOVED] Indwelling Urinary Catheter 14 Fr 10/09/22 1056) 200 300 450 950 300 300 Shift Total 200 300 450 950 300 300 Weight (kg) 103.7 103.7 103.7 103.7 103.7 103.7 103.7 103.7 Medications: Current Facility-Administered Medications Medication Dose Route Frequency acetaminophen 650 mg tab(s) (TYLENOL) 650 mg ORAL q 6 H insulin glargine 5 Units pen (long acting) 5 Units SUBCUTANEOUS DAILY (8 AM) glimepiride 2 mg tab(s) (AMARYL) 2 mg ORAL DAILY WITH BREAKFAST insulin regular human injection (short acting) (NovoLIN R,HumuLIN R) SUBCUTANEOUS q 6 H senna-docusate 8.6-50 mg 1 tablet (SENNA-S) 1 tablet ORAL/FEEDING TUBE BID atorvastatin 10 mg tab(s) (LIPITOR) 10 mg ORAL DAILY amLODIPine 5 mg tab(s) (NORVASC) 5 mg ORAL DAILY levothyroxine 125 mcg tab(s) (SYNTHROID) 125 mcg ORAL DAILY lisinopril 20 mg tab(s) (ZESTRIL) 20 mg ORAL DAILY dextrose 15 gram/32 mL 15 g (TRUEPLUS) 15 g ORAL PRN Or glucagon 1 mg injection 1 mg INTRAMUSCULAR PRN Or dextrose 10% iv bolus 12.5 g INTRAVENOUS PRN NaCl 0.9% iv flush bag 20 mL INTRAVENOUS PRN aluminum-magnesium hydroxide-simethicone 200-200-20 mg/5 mL 30 mL 30 mL ORAL q 6 H PRN guaiFENesin 600 mg ER tab(s) (MUCINEX) 600 mg ORAL q 12 H PRN melatonin 3 mg tab(s) 3 mg ORAL AT BEDTIME PRN ondansetron (PF) 4 mg injection (ZOFRAN) 4 mg INTRAVENOUS q 6 H PRN polyethylene glycol 3350 17 g packet 17 g ORAL DAILY PRN docusate sodium 100 mg cap(s) (COLACE) 100 mg ORAL BID PRN prochlorperazine 10 mg injection (COMPAZINE) 10 mg INTRAVENOUS q 6 H PRN dexAMETHasone sodium phosphate 4 mg injection (DECADRON) 4 mg INTRAVENOUS q [address] 40 mg tab(s) (PROTONIX) 40 mg ORAL DAILY (6 AM) metoprolol succinate ER 50 mg tab(s) (TOPROL XL) 50 mg ORAL DAILY Labs: Recent Labs 10/09/22 0200 10/08/22 0432 10/07/22 2344 10/06/22 1758 NA 131* -- 135* -- K 4.5 -- 3.9 -- CHLOR 96* -- 100 -- CO2 24 -- 23 -- BUN 39* -- 22 -- CREAT 1.13 -- 0.80 -- GLUC 150* -- 256* -- ANION 11 -- 12 -- CA 9.1 -- 9.0 -- MG 2.0 1.6* -- -- P -- 3.2 -- -- WBC 17.25* 13.03* -- -- HB 16.4 16.3 -- -- HCT 46.8 46.6 -- -- PLT 189 163 -- -- INR -- -- -- <0.9* Exam: GENERAL: No distress, Alert, pleasant mood NEURO: oriented x 3, EOMI, makes eye contact, speech is fluent and clear, CN II-XII grossly intact. Strength 5/5 in BUE and BLE. No sensory deficits HEENT: face symmetric, normocephalic, dressing removed, wound is clean, dry, and intact. LUNGS: Unlabored breathing CARDIAC: Regular rate and rhythm as above EXTREMITIES: QUINTERO, No deformities, No edema ASSESSMENT AND PLAN: Active Hospital Problems Diagnosis Date Noted Ataxia 10/06/2022 Primary hypertension 10/06/2022 Brain mass 10/06/2022 Type 2 diabetes mellitus without complication, without long-term current use of insulin (HCC) 10/06/2022 Chronic Obesity, Class I, BMI 30-34.9 10/06/2022 Rectal cancer (HCC) 11/07/2014 Aubrey Myas is a 72 year old male PMHx significant for rectal cancer s/p colostomy, and urethral disruption with ataxia of approximately 7 weeks found to have new right cerebellar brain mass. POD2 Right suboccipital craniotomy for excision of Right cerebellar brain mass -Neuro as above - Pain control: minimal post-operative pain - Imaging: post-op CT reviewed yesterday- normal post-operative changes - start decadron taper tomorrow. 2mg q6h x 2 days, 1 mg q6h x 2 days, 0.5mg q6h x 2 days, 0.5 bid until follow-up appointment. Protonix daily for GI ppx - Diet: regular - Dressing: removed, keep wound open to air - Activity: encourage OOB activity. PT/OT rec pending. - Dispo: tentative discharge home tomorrow - DVT ppx: hold chemo ppx as patient is ambulatory - giles was discontinued, bladder scan prn - bowel ppx: change to miralax daily and colace bid, discontinue senna - follow for final surgical pathology, prelim metastatic carcinoma - follow-up with Dr Vazquez 2 weeks post op with repeat MRI brain with and without contrast - (more content not included)... [facility] 10-09-2022 Note HNO ID: [id number] Author: Marilou Victoria RN Service: Care Management Author Type: Registered Nurse Type: Care Mgt Progress Note Filed: 10/09/2022 9:00 AM Note Text: CARE MANAGEMENT PROGRESS NOTE SERVICE DATE: 10/09/2022 SERVICE TIME: 8:59 AM LOS: 3 days Needs Prior to Discharge: None No skilled needs. Pt plans on returning home with family and outpatient therapy. Pt states family will transport him home SIGNATURE: Marilou Victoria RN, BSN PATIENT NAME: Aubrey Mays DATE: October 09, 2022 TIME: 8:59 AM PAGER/CONTACT #: [phone] [facility] 10-09-2022 Note HNO ID: [id number] Author: Jarek Herrmann MD Service: Hospital Medicine Author Type: Physician Type: Progress Notes Filed: 10/09/2022 8:44 AM Note Text: Hospital Medicine consult Progress Note Patient Name: Aubrey Mays Admission Date: 10/06/2022 Reason for Visit: DM IMPRESSION AND PLAN: Active Hospital Problems Diagnosis Ataxia Primary hypertension Brain mass Type 2 diabetes mellitus without complication, without long-term current use of insulin (HCC) Obesity, Class I, BMI 30-34.9 Rectal cancer (HCC) DM2 glucose is better today around 170, glipizide was resumed and also added Lantus 5 unit subcu daily due to hyperglycemia from being on dexamethasone, continue with PRN insulin coverage, doubt that patient will require insulin upon discharge. Brain mass patient started postsurgery on 10/07 Hypertension blood pressure was mildly elevated 159/82this morning, but patient is on norvasc 5 mg daily and lisinopril 20 mg daily. Hypothyroidism on Synthroid 125 mch daily. Bradycardia asymptomatic, patient is on Toprol Xl which was not given this morning, will monitor for now and if needed drop dose down to either 37.5 or 25 mg daily. Patient Checklist Code Status: Code Status: Not on file Disposition: Home Jarek Herrmann MD Interval History: Patient was seen and examined for DM, patient is feeling and doing better, has a giles cath with a plan to remove after starting to work with therapy. Denied any fever, chills, chest pain, dyspnea. PERTINENT ROS: Temp Av.5 ?C (97.7 ?F) Min: 36.4 ?C (97.5 ?F) Max: 36.6 ?C (97.9 ?F) Pulse Av.5 Min: 57 Max: 82 Arterial BP 1 Min: 126/67 Max: 152/70 Cuff BP Min: 92/73 Max: 160/96 Pain Level: 1 PHYSICAL EXAM: BP 159/82 Pulse 62 Temp 36.6 ?C (97.9 ?F) (Oral) Resp 18 Ht 172.7 cm (5' 8 ) Wt 103.7 kg (228 lb 9.9 oz) SpO2 98% BMI 34.76 kg/m? PHYSICAL EXAMINATION: General appearance: Patient is sitting in bed in no acute respiratory distress. Awake, alert, oriented *3. Skin: Normal temperature, no ecchymosis. Lungs: Good air entry. No wheezing, rhonchi, rales, no use of accessory respiratory muscles. Heart: RRR, normal s1s2. Abdomen: Positive for bowel sounds, soft abdomen, non-tender. Extremities: No pitting edema bilateral legs. MEDICATIONS: atorvastatin (LIPITOR) 10 mg tabletTake 10 mg by mouth once daily.Disp: Rfl: glipiZIDE (GLUCOTROL XL) 10mg 24 hr tabletTake 5 mg by mouth.Disp: Rfl: amLODIPine (NORVASC) 5 mg tabletTake by mouth.Disp: Rfl: nebivolol (BYSTOLIC) 10 mg tabletTake 10 mg by mouth once daily.Disp: Rfl: SYNTHROID 125 mcg tabletTake 125 mcg by mouth once daily.Disp: Rfl: lisinopril (ZESTRIL, PRINIVIL) 20 mg tabletDisp: Rfl: TRADJENTA 5 mg tabTake 5 mg by mouth once daily.Disp: Rfl: metFORMIN (GLUCOPHAGE) 500 mg [id number] mg.Disp: Rfl: indapamide (LOZOL) 1.25 mg tabletTake 1.25 mg by mouth once daily.Disp: Rfl: doxazosin (CARDURA) 2 mg tabletTake 2 mg by mouth daily at bedtime.Disp: Rfl: Current Facility-Administered Medications Medication Dose Route Frequency atorvastatin 10 mg tab(s) (LIPITOR) 10 mg ORAL DAILY amLODIPine 5 mg tab(s) (NORVASC) 5 mg ORAL DAILY levothyroxine 125 mcg tab(s) (SYNTHROID) 125 mcg ORAL DAILY lisinopril 20 mg tab(s) (ZESTRIL) 20 mg ORAL DAILY dextrose 15 gram/32 mL 15 g (TRUEPLUS) 15 g ORAL PRN Or glucagon 1 mg injection 1 mg INTRAMUSCULAR PRN Or dextrose 10% iv bolus 12.5 g INTRAVENOUS PRN NaCl 0.9% iv flush bag 20 mL INTRAVENOUS PRN aluminum-magnesium hydroxide-simethicone 200-200-20 mg/5 mL 30 mL 30 mL ORAL q 6 H PRN guaiFENesin 600 mg ER tab(s) (MUCINEX) 600 mg ORAL q 12 H PRN melatonin 3 mg tab(s) 3 mg ORAL AT BEDTIME PRN ondansetron (PF) 4 mg injection (ZOFRAN) 4 mg INTRAVENOUS q 6 H PRN polyethylene glycol 3350 17 g packet 17 g ORAL DAILY PRN docusate sodium 100 mg cap(s) (COLACE) 100 mg ORAL BID PRN prochlorperazine 10 mg injection (COMPAZINE) 10 mg INTRAVENOUS q 6 H PRN dexAMETHasone sodium phosphate 4 mg injection (DECADRON) 4 mg INTRAVENOUS q [address] 40 mg tab(s) (PROTONIX) 40 mg ORAL DAILY (6 AM) metoprolol succinate ER 50 mg tab(s) (TOPROL XL) 50 mg ORAL DAILY acetaminophen 650 mg tab(s) (TYLENOL) 650 mg ORAL q 6 H insulin regular human injection (short acting) (NovoLIN R,HumuLIN R) SUBCUTANEOUS q 6 H senna-docusate 8.6-50 mg 1 tablet (SENNA-S) 1 tablet ORAL/FEEDING TUBE BID insulin glargine 5 Units pen (long acting) 5 Units SUBCUTANEOUS DAILY (8 AM) glimepiride 2 mg tab(s) (AMARYL) 2 mg ORAL DAILY WITH BREAKFAST Lab data: CBC: Recent Labs 10/09/22 0200 10/08/22 0432 10/06/22 1031 WBC 17.25* 13.03* 9.59 HB 16.4 16.3 15.6 HCT 46.8 46.6 46.0 PLT 189 163 147* MCV 87.2 86.5 89.1 RDWCV 13.3 13.3 13.7 NEUTP -- -- 82.8 ABSNEUT -- -- 7.94* LYMPHP -- -- 11.7 MONOP -- -- 4.5 COAG: (more content not included)... [facility] 10-08-2022 Note HNO ID: [id number] Author: Jarek Herrmann MD Service: Hospital Medicine Author Type: Physician Type: Progress Notes Filed: 10/08/2022 12:09 PM Note Text: Hospital Medicine consult progress Note Patient Name: Aubrey Mays Admission Date: 10/06/2022 Reason for Visit: Diabetes mellitus type 2 IMPRESSION AND PLAN: Active Hospital Problems Diagnosis Ataxia Primary hypertension Brain mass Type 2 diabetes mellitus without complication, without long-term current use of insulin (HCC) Obesity, Class I, BMI 30-34.9 Rectal cancer (HCC) DM2 glucose is elevated this morning, glipizide is on hold which we will resume today and also add dose of Lantus 5 unit subcu daily due to hyperglycemia from being on dexamethasone, continue with PRN insulin coverage, doubt that patient will require insulin upon discharge. Brain mass patient started postsurgery on 10/07 Hypertension blood pressure was mildly elevated this morning, but patient is on norvasc 5 mg daily and lisinopril 20 mg daily. Hypothyroidism on Synthroid 125 mch daily. Bradycardia asymptomatic, patient is on Toprol Xl which was not given this morning, will monitor for now and if needed drop dose down to either 37.5 or 25 mg daily. Patient Checklist Prophylaxis: VTE - No. Not indicated. Code Status: Code Status: Not on file Disposition: Home Jarek Herrmann MD Interval History: Patient was seen and examined for diabetes mellitus type 2 with hyperglycemia, patient denied any fever, chills, chest pain no nausea no vomiting he had surgery yesterday and was started on dexamethasone which resulted in hyperglycemia, his home oral medication has been put on hold before surgery, will start patient on Lantus and resume his glimepiride interchange for his glipizide and continue to monitor glucose level. Case was reviewed with bedside nurse. PERTINENT ROS: Temp Av.5 ?C (97.7 ?F) Min: 36.2 ?C (97.2 ?F) Max: 36.9 ?C (98.4 ?F) Pulse Av.2 Min: 45 Max: 85 Arterial BP 1 Min: 79/52 Max: 198/130 Cuff BP Min: 136/87 Max: 196/104 Pain Level: 2 PHYSICAL EXAM: BP 160/96 Pulse 74 Temp 36.4 ?C (97.5 ?F) (Oral) Resp 20 Ht 172.7 cm (5' 8 ) Wt 103.7 kg (228 lb 9.9 oz) SpO2 97% BMI 34.76 kg/m? PHYSICAL EXAMINATION: General appearance: Patient is sitting in bed in no acute respiratory distress. Awake, alert, oriented *3. Skin: Normal temperature, no ecchymosis. Lungs: Good air entry. No wheezing, rhonchi, rales, no use of accessory respiratory muscles. Heart: RRR, normal s1s2. Abdomen: Positive for bowel sounds, soft abdomen, non-tender. Extremities: No pitting edema bilateral legs. MEDICATIONS: atorvastatin (LIPITOR) 10 mg tabletTake 10 mg by mouth once daily.Disp: Rfl: glipiZIDE (GLUCOTROL XL) 10mg 24 hr tabletTake 5 mg by mouth.Disp: Rfl: amLODIPine (NORVASC) 5 mg tabletTake by mouth.Disp: Rfl: nebivolol (BYSTOLIC) 10 mg tabletTake 10 mg by mouth once daily.Disp: Rfl: SYNTHROID 125 mcg tabletTake 125 mcg by mouth once daily.Disp: Rfl: lisinopril (ZESTRIL, PRINIVIL) 20 mg tabletDisp: Rfl: TRADJENTA 5 mg tabTake 5 mg by mouth once daily.Disp: Rfl: metFORMIN (GLUCOPHAGE) 500 mg [id number] mg.Disp: Rfl: indapamide (LOZOL) 1.25 mg tabletTake 1.25 mg by mouth once daily.Disp: Rfl: doxazosin (CARDURA) 2 mg tabletTake 2 mg by mouth daily at bedtime.Disp: Rfl: Current Facility-Administered Medications Medication Dose Route Frequency atorvastatin 10 mg tab(s) (LIPITOR) 10 mg ORAL DAILY amLODIPine 5 mg tab(s) (NORVASC) 5 mg ORAL DAILY levothyroxine 125 mcg tab(s) (SYNTHROID) 125 mcg ORAL DAILY lisinopril 20 mg tab(s) (ZESTRIL) 20 mg ORAL DAILY dextrose 15 gram/32 mL 15 g (TRUEPLUS) 15 g ORAL PRN Or glucagon 1 mg injection 1 mg INTRAMUSCULAR PRN Or dextrose 10% iv bolus 12.5 g INTRAVENOUS PRN NaCl 0.9% iv flush bag 20 mL INTRAVENOUS PRN aluminum-magnesium hydroxide-simethicone 200-200-20 mg/5 mL 30 mL 30 mL ORAL q 6 H PRN guaiFENesin 600 mg ER tab(s) (MUCINEX) 600 mg ORAL q 12 H PRN melatonin 3 mg tab(s) 3 mg ORAL AT BEDTIME PRN ondansetron (PF) 4 mg injection (ZOFRAN) 4 mg INTRAVENOUS q 6 H PRN polyethylene glycol 3350 17 g packet 17 g ORAL DAILY PRN docusate sodium 100 mg cap(s) (COLACE) 100 mg ORAL BID PRN prochlorperazine 10 mg injection (COMPAZINE) 10 mg INTRAVENOUS q 6 H PRN dexAMETHasone sodium phosphate 4 mg injection (DECADRON) 4 mg INTRAVENOUS q [address] 40 mg tab(s) (PROTONIX) 40 mg ORAL DAILY (6 AM) metoprolol succinate ER 50 mg tab(s) (TOPROL XL) 50 mg ORAL DAILY ceFAZolin iv piggyback 2 g in D5W (iso-osmotic) 100 mL (ANCEF) 2 g INTRAVENOUS q 8 HR acetaminophen 650 mg tab(s) (TYLENOL) 650 mg ORAL q 6 H insulin regular human injection (short acting) (NovoLIN R,HumuLIN R) SUBCUTANEOUS q 6 H senna-docusate 8.6-50 mg 1 tablet (SENNA-S) 1 tablet ORAL/FEEDING TUBE (more content not included)... [facility] 10-08-2022 Note HNO ID: [id number] Author: Marilou Victoria RN Service: Care Management Author Type: Registered Nurse Type: Care Mgt Progress Note Filed: 10/08/2022 11:14 AM Note Text: CARE MANAGEMENT PROGRESS NOTE SERVICE DATE: 10/08/2022 SERVICE TIME: 11:12 AM LOS: 2 days Needs Prior to Discharge: None CM spoke with pt. Pt plans on returning home at time of discharge. Pt states family will transport him home. No skilled needs anticipated SIGNATURE: Marilou Victoria RN, BSN PATIENT NAME: Aubrey Mays DATE: October 08, 2022 TIME: 11:12 AM PAGER/CONTACT #: [phone] [facility] 10-08-2022 Note HNO ID: [id number] Author: Kyle Gutierres RN Service: Nursing Author Type: Registered Nurse Type: Nursing Progress Note Filed: 10/08/2022 10:29 AM Note Text: Report called to Deysi RN [phone]; pt to [phone] via Wheelchair; [facility] 10-08-2022 Note HNO ID: [id number] Author: Savannah Hernandes PA-C Service: Neurosurgery Author Type: Physician Fur Trimmer Type: Plan of Care Filed: 10/08/2022 5:07 PM Note Text: NSGY Plan of Care Patient seen and examined in PACU. Denies headache, N/V, vision changes. Ambulating and minimal post-operative pain. Neurologically intact. Ok for transfer to regular nursing floor. Transfer orders completed. Savannah Hernandes PA-C Pager: [phone] [facility] 10-08-2022 Note HNO ID: [id number] Author: Kyle Gutierres RN Service: Nursing Author Type: Registered Nurse Type: Nursing Progress Note Filed: 10/08/2022 8:30 AM Note Text: Returned to PACU spot 1; [facility] 10-08-2022 Note HNO ID: [id number] Author: Kyle Gutierres RN Service: Nursing Author Type: Registered Nurse Type: Nursing Progress Note Filed: 10/08/2022 8:29 AM Note Text: To CT via wheelchair, on tele accompanied by this RN; [facility] 10-08-2022 Note HNO ID: [id number] Author: Kyle Gutierres RN Service: Nursing Author Type: Registered Nurse Type: Nursing Progress Note Filed: 10/08/2022 7:49 AM Note Text: Report received from Can porter RN; [facility] 10-08-2022 Note HNO ID: [id number] Author: Kristi Martinez APRN.CNP Service: Neurology ICU Author Type: Nurse Practitioner Type: Progress Notes Filed: 10/08/2022 5:16 AM Note Text: SERVICE DATE: 10/08/2022 SERVICE TIME: 5:00 AM NEURO ICU PROGRESS NOTE DATE OF ADMISSION: 10/06/2022 Subjective Hospital Course: 10/08: NAEON. Tolerating liquids, will advance diet. Pain controlled. VS stable. Objective BP 155/89 Pulse 67 Temp 36.6 ?C (97.9 ?F) (Temporal) Resp 15 Ht 172.7 cm (5' 8 ) Wt 103.7 kg (228 lb 9.9 oz) SpO2 93% BMI 34.76 kg/m? Weight change: Neuro: GCS: Eyes: 4. Spontaneous Verbal: 5: Oriented Motor: 6: Obeys Motor commands Total: 15 Alert and oriented to person, place, month Speech clear No facial asym PERRL EOMI VFF MAEx4 5/ strength Sensation intact LT CV: RRR Pulm: CTAB even unlabored on RA GI/: abd soft NT/ND +BS Skin/Extremities: Edema- No Peripheral pulses- Present all extremities Wounds/Drsgs- Yes Breakdown- No Diagnostic tests reviewed for today's visit: Most recent labs and imaging results. Lines, Drains, and Airways Line Duration Peripheral Admission to Hospital Right Antecubital 20 Gauge -- days Arterial Line/Sheath 10/07/22 1619 Left Radial <1 day Central Line Single Lumen 10/07/22 1720 <1 day Drain Duration Indwelling Urinary Catheter 14 Fr -- days Colostomy 11/24/14 LLQ 2875 days ICU Checklist ------- A= Assess, Prevent, Manage Pain C= Choice of Sedation and Analgesia B= Both Spontaneous Awakening and Breathing Trials D= Delirium: Assess, Prevent and Manage E= Early Mobility/Excercise ICU Mobility: F= Family Engagement and Empowerment ICU Disposition: Prevention: VTE Prophylaxis: PERSONAL INVOLVEMENT IN CARE: Reviewing initiation, responses and adjustments to therapies, coordination of care, and updating family with Staff Physician, Dr. Darby. Assessment AND Plan 72 year old male with PMHx significant for HTN, rectal cancer s/p colostomy, and urethral disruption, who presented to OSH for ataxia since August 20, 2022 patient also reports intermittent headache back of head as well as nausea and emesis since then. 40-ohti-mmac history of smoking. CTH revealed right cerebellar mass. Pt transferred to [facility] for NSGY evaluation of mass. 10/07 for underwent Right suboccipital craniotomy for microscopic excision of infratentorial brain tumor metastatic carcinoma. Active Hospital Problems as of 10/08/2022 Noted - Resolved [facility] Type 2 diabetes mellitus without complication, without long-term current use of insulin (HCC) 10/06/2022 - Present Yes Current Assessment AND Plan Holding oral home medications Glucose checks ACAND HS SSI scale 3 Rectal cancer (HCC) 11/07/2014 - Present Yes * (Principal) Ataxia 10/06/2022 - Present Yes Current Assessment AND Plan ? PT/OT Primary hypertension 10/06/2022 - Present Yes Current Assessment AND Plan ? SBP <160 ? resume home antihypertensive agents ? norvasc 5mg daily ? Lisinopril 20mg daily ? Toprol XL substituted for bystolic Brain mass 10/06/2022 - Present Yes Current Assessment AND Plan S/p Right suboccipital craniotomy for microscopic excision of infratentorial brain tumor metastatic carcinoma. NSICU consulted for medical management. ? Admitted to NSICU post procedure for close observation ? Radiation oncology consulted ? Neuro checks q2h ? Decadron 4mg q6h ? Glucose monitoring with SSI scale 3 ? SBP <160 ? Tele ? Daily labs ? PT/OT Obesity, Class I, BMI 30-34.9 10/06/2022 - Present Unknown Medication and Non-Pharmacologic VTE Prophylaxis/Anticoagulants 10/06/22 0700 vte current anticoag therapy (ga,in) 10/06/22 0700 pneumatic compression stockings (ga,in) 10/06/22 0700 activity - mobilize patient (ga,in) VTE Prophylaxis: Contraindicated bleeding risk Plan of care discussed with: Provider, RN, Patient This patient has a high probability of sudden, clinically significant deterioration, which requires the highest level of provider preparedness to intervene urgently. I managed/supervised life or organ supporting interventions that required frequent provider assessment. I devoted my full attention to the direct care of this patient for the amount of time indicated below. Time I spent with family or surrogate(s) is included only if the patient was incapable of providing the necessary information or participating in medical decision making. Time devoted to teaching and to any procedures I billed separately is not included. Critical Care Documentation: The patient has the following organ/system impairment(s): Complex life-threatening medical problem(s), Respiratory failure (Acute and/or Chronic), acute neurologic event and/or Severe electrolyte imbalance. Part of my note may have been copied from previous document (more content not included)... [facility] 10-07-2022 Note HNO ID: [id number] Author: Jairo Gary RN Service: ? Author Type: Registered Nurse Type: Progress Notes Filed: 10/07/2022 9:19 PM Note Text: Dr. Vazquez at the bedside evaluating the pt [facility] 10-07-2022 Note HNO ID: [id number] Author: August Son APRN.CRNA Service: ? Author Type: Nurse Bending Machine Operator Type: Anesthesia Procedure Notes Filed: 10/07/2022 5:42 PM Note Text: ANESTHESIOLOGY PROCEDURE NOTE Airway General Information Procedure Start Time/Medication Administration: 10/07/2022 4:22 PM Patient location during procedure: OR Timeout Performed Pre-procedure: timeout performed Consent Obtained: Yes Patient identity confirmed: arm band and patient Staffing Performed by: WEB COMMUNICATIONS SPECIALIST Indications and Patient Condition Indications for airway management: anesthesia Preoxygenated: yes anesthesia circuit Patient position: sniffing Method: asleep Final Airway Details Final airway type: endotracheal airway Final Endotracheal Airway: ETT Cuffed: yes Successful intubation technique: direct laryngoscopy Blade: Denys Blade size: #4 ETT size (mm): 7.5 Cormack-Lehane Classification: grade I - full view of glottis Number of attempts at approach: 1 SIGNATURE: August Son APRN.CRNA PATIENT NAME: Aubrey Mays DATE: October 07, 2022 TIME: 5:41 PM CSN: [id number] [facility] 10-07-2022 Note HNO ID: [id number] Author: Serafin Jauregui MD Service: Anesthesiology Author Type: Physician Type: Anesthesia Procedure Notes Filed: 10/07/2022 5:22 PM Note Text: ANESTHESIOLOGY PROCEDURE NOTE CVL General Information Procedure Start Time/Medication Administration: 10/07/2022 4:27 PM Patient location during procedure: OR Timeout Performed Pre-procedure: timeout performed Consent Obtained: Yes Patient identity confirmed: arm band and care steamtable attendant railroad Indication: central venous access and sitting crani Staffing Anesthesiologist: Serafin Jauregui MD Performed by: anesthesiologist Preparation Sterility Preparation: hand hygiene performed prior to procedure, sterile gloves, drapes, and procedure tray, gown used during line insertion, surgical cap used, mask used, sterile drape used during line insertion, skin prep agent completely dried prior to procedure Site Prep: Chloraprep Procedure Details Patient Position: Trendelenburg Laterality: Right Site: Internal jugular Catheter Type: Standard CVL Catheter size: 16. Catheter length (cm): 30. Insertion Depth: 19 cm Number of Lumens: Single lumen (multi orifice with doppler) Ultrasound Guided: Yes Image in Chart: Yes Sites: potential access sites evaluated, selected vessel patent, concurrent real time ultrasound visualization of vascular needle entry Vessel: target vessel identified and guidewire advanced into vessel Needle advanced into vein and blood aspirated: Yes Transduced prior to dilation: Yes Number of Attempts: 1 Number of Guidewires Used: 1 Number of Guidewires Removed Intact: 1 Post-procedure x-ray ordered: per surgery. Post Insertion Ports and Catheter: all ports aspirate easily, all ports flush easily and ports flushed with saline Catheter Secured: suture(s), tape and central line dressing applied Events Events: patient tolerated procedure well with no complications SIGNATURE: Serafin Jauregui MD PATIENT NAME: Aubrey Mays DATE: October 07, 2022 TIME: 5:14 PM CSN: [id number] [facility] 10-07-2022 Note HNO ID: [id number] Author: Serafin Jauregui MD Service: Anesthesiology Author Type: Physician Type: Anesthesia Procedure Notes Filed: 10/07/2022 5:13 PM Note Text: ANESTHESIOLOGY PROCEDURE NOTE A-Line General Information Procedure Start Time/Medication Administration: 10/07/2022 4:19 PM Patient location during procedure: OR Timeout Performed Pre-procedure: timeout performed Indications: continuous blood pressure monitoring Staffing Anesthesiologist: Serafin Jauregui MD Performed by: anesthesiologist Preparation Sterility Preparation: hand hygiene performed prior to procedure, sterile gloves, drapes, and procedure tray, surgical cap used, mask used, skin prep agent completely dried prior to procedure Site Prep: Chloraprep Procedure Details Catheter Type: arterial line Catheter Length: 1.88 in Micropuncture Kit Used: No Guidewire Used: No Laterality: left Site: radial artery Ultrasound Guided: No Line Secured: Tegaderm and tape Events Events: patient tolerated procedure well with no complications SIGNATURE: Serafin Jauregui MD PATIENT NAME: Aubrey Mays DATE: October 07, 2022 TIME: 5:12 PM CSN: [id number] [facility] 10-07-2022 Note HNO ID: [id number] Author: Leandra Bolden MD Service: Radiation Oncology Author Type: Physician Type: Progress Notes Filed: 10/07/2022 12:34 PM Note Text: Radiation Oncology Patient seen and examined. Full note to be dictated. Imp: 72 yo make with a h/o rectal cancer, GEORGE for the past 8 years and now with a new enhancing cerebellar lesion. Plan: Agree with surgical resection for pathologic diagnosis and for rapid symptom relief. If metastatic cancer he will likely need adjuvant radiotherapy, possibly SRS to the operative bed. If a primary brain tumor will need more conventionally fractionated radiotherapy. Will follow up once path is known. Leandra Bolden MD October 07, 2022 12:34 PM [facility] 10-07-2022 Note HNO ID: [id number] Author: Jarek Herrmann MD Service: Hospital Medicine Author Type: Physician Type: Progress Notes Filed: 10/07/2022 12:05 PM Note Text: Hospital Medicine Progress Note Patient Name: Aubrey Mays Admission Date: 10/06/2022 Reason for Visit: Brain mass IMPRESSION AND PLAN: Active Hospital Problems Diagnosis Ataxia Primary hypertension Brain mass Type 2 diabetes mellitus without complication, without long-term current use of insulin (HCC) Obesity, Class I, BMI 30-34.9 Rectal cancer (HCC) Brain mass patient is for surgery today and is ok with moderate risk. Hypertension blood pressure was mildly elevated this morning, but patient is on norvasc 5 mg daily and lisinopril 20 mg daily. Hypothyroidism on Synthroid 125 mch daily. Bradycardia asymptomatic, patient is on Toprol Xl which was not given this morning, will monitor for now and if needed drop dose down to either 37.5 or 25 mg daily. DM2 glucose is elevated this morning, glipizide is on hold right now, continue with PRN insulin coverage. Patient Checklist Prophylaxis: VTE - No. Plan for surgery today Code Status: Code Status: Not on file Disposition: not clear yet Jarek Herrmann MD Interval History: Patient was seen and examined for brain mass, feeling ok, mild elevated BP this morning and mild drop in heart rate but patient is asymptomatic. Patient said that usually he is able to ambulate well without getting short of breath or having chest pain able to do his activities of daily living. Previous surgery was for his rectal cancer and he did okay with anesthesia. PERTINENT ROS: Temp Av.2 ?C (97.2 ?F) Min: 35.6 ?C (96.1 ?F) Max: 36.7 ?C (98.1 ?F) Pulse Av.2 Min: 51 Max: 65 No data recorded Cuff BP Min: 141/82 Max: 169/98 Pain Level: 0 PHYSICAL EXAM: BP 141/82 Pulse (!) 59 Temp (!) 35.6 ?C (96.1 ?F) (Oral) Resp 20 Ht 172.7 cm (5' 8 ) Wt 103.7 kg (228 lb 9.9 oz) SpO2 98% BMI 34.76 kg/m? PHYSICAL EXAMINATION: General appearance: Patient is sitting in bed in no acute respiratory distress. Awake, alert, oriented *3. Skin: Normal temperature, no ecchymosis. Lungs: Good air entry. No wheezing, rhonchi, rales, no use of accessory respiratory muscles. Heart: RRR, normal s1s2. Abdomen: Positive for bowel sounds, soft abdomen, non-tender. Extremities: No pitting edema bilateral legs. MEDICATIONS: atorvastatin (LIPITOR) 10 mg tabletTake 10 mg by mouth once daily.Disp: Rfl: glipiZIDE (GLUCOTROL XL) 10mg 24 hr tabletTake 5 mg by mouth.Disp: Rfl: amLODIPine (NORVASC) 5 mg tabletTake by mouth.Disp: Rfl: nebivolol (BYSTOLIC) 10 mg tabletTake 10 mg by mouth once daily.Disp: Rfl: SYNTHROID 125 mcg tabletTake 125 mcg by mouth once daily.Disp: Rfl: lisinopril (ZESTRIL, PRINIVIL) 20 mg tabletDisp: Rfl: TRADJENTA 5 mg tabTake 5 mg by mouth once daily.Disp: Rfl: metFORMIN (GLUCOPHAGE) 500 mg mg.Disp: Rfl: indapamide (LOZOL) 1.25 mg tabletTake 1.25 mg by mouth once daily.Disp: Rfl: doxazosin (CARDURA) 2 mg tabletTake 2 mg by mouth daily at bedtime.Disp: Rfl: Current Facility-Administered Medications Medication Dose Route Frequency atorvastatin 10 mg tab(s) (LIPITOR) 10 mg ORAL DAILY amLODIPine 5 mg tab(s) (NORVASC) 5 mg ORAL DAILY levothyroxine 125 mcg tab(s) (SYNTHROID) 125 mcg ORAL DAILY lisinopril 20 mg tab(s) (ZESTRIL) 20 mg ORAL DAILY dextrose 15 gram/32 mL 15 g (TRUEPLUS) 15 g ORAL PRN Or glucagon 1 mg injection 1 mg INTRAMUSCULAR PRN Or dextrose 10% iv bolus 12.5 g INTRAVENOUS PRN NaCl 0.9% iv flush bag 20 mL INTRAVENOUS PRN acetaminophen 650 mg tab(s) (TYLENOL) 650 mg ORAL q 4 H PRN aluminum-magnesium hydroxide-simethicone 200-200-20 mg/5 mL 30 mL 30 mL ORAL q 6 H PRN benzocaine-menthol 1 Lozenge (CEPACOL) 1 Lozenge MUCOUS MEMBRANE (TOPICAL MOUTH AND THROAT) q 2 H PRN guaiFENesin 600 mg ER tab(s) (MUCINEX) 600 mg ORAL q 12 H PRN melatonin 3 mg tab(s) 3 mg ORAL AT BEDTIME PRN ondansetron (PF) 4 mg injection (ZOFRAN) 4 mg INTRAVENOUS q 6 H PRN polyethylene glycol 3350 17 g packet 17 g ORAL DAILY PRN docusate sodium 100 mg cap(s) (COLACE) 100 mg ORAL BID PRN prochlorperazine 10 mg injection (COMPAZINE) 10 mg INTRAVENOUS q 6 H PRN insulin lispro injection (rapid acting) (HumaLOG) SUBCUTANEOUS w MEALS insulin lispro injection (rapid acting) (HumaLOG) SUBCUTANEOUS AT BEDTIME dexAMETHasone sodium phosphate 4 mg injection (DECADRON) 4 mg INTRAVENOUS q [address] 40 mg tab(s) (PROTONIX) 40 mg ORAL DAILY (6 AM) metoprolol succinate ER 50 mg tab(s) (TOPROL XL) 50 mg ORAL DAILY iv contrast (radiology procedure) INTRAVENOUS DIRECTED PRN Lab data: CBC: Recent Labs 10/06/22 1031 WBC 9.59 HB 15.6 HCT 46.0 PLT 147* MCV 89.1 RDWCV 13.7 NEUTP 82.8 ABSNEUT 7.94* LYMPHP 11.7 MONOP 4.5 COAG: Recent La (more content not included)... [facility] 10-06-2022 Note HNO ID: [id number] Author: Kris Moscoso PA-C Service: Neurosurgery Author Type: Physician Fur Trimmer Type: Plan of Care Filed: 10/06/2022 5:46 PM Note Text: Neurosurgery Plan of Care Note: MRI discussed with Dr. Bhakta. MRI brain concerning for metastasis. Will schedule surgery tomorrow afternoon with Dr. Vazquez for resection of right cerebellar mass. Discussed MRI scan and clinical scenario with the patient, his , and his daughter at length. Offered to have patient's granddaughter on the phone who is a nurse but family declined. Answered all questions and concerns regarding care. Patient and family appreciative of information and discussion. Plan Surgery tomorrow afternoon for resection of cerebellar lesion Needs central line and arterial line prior to surgery Will need medical clearance, discussed with Dr. Herrmann Stereotactic sequence CT scan tomorrow am Will go to NSICU after surgery NPO after midnight, tierney BAUM COVID Brandon Oneail, PA-C Neurosurgery Pager: [phone] October 06, 2022 4:41 PM [facility] 10-06-2022 Note HNO ID: [id number] Author: Jarek Herrmann MD Service: Hospital Medicine Author Type: Physician Type: Plan of Care Filed: 10/06/2022 1:20 PM Note Text: Patient seen and examined as a follow-up as was admitted early this morning for ataxia and imaging consistent with cerebellar lesion that will require further work-up including MRI and neurosurgery evaluation. [facility] 10-06-2022 Note HNO ID: [id number] Author: Zak Dominique RN Service: Care Management Author Type: Registered Nurse Type: Care Mgt Initial Assessment Filed: 10/06/2022 12:23 PM Note Text: CARE MANAGEMENT: ASSESSMENT AND DISCHARGE PLAN SERVICE DATE: October 06, 2022 SERVICE TIME: 12:21 PM PCP: Valentine Brand MD Primary Contact: Extended Emergency Contact Information Primary Emergency Contact: Julita Mays Address: [address] [place] [address] Mobile Relation: Spouse Admission Status: Inpatient Insurance Provider: [facility] [place] Discharge Planning requested by: Per Department Practice Potential Transition Plans Home Advance Directives Current Advance Directive: None Actuarial Manager Attempted to Assist with AD Completion: Yes Action: Education Provided Current Living Arrangements and Support Lives with: Spouse/significant other Type of Residence: Private Residence (House) Support: Spouse/significant other How do you manage to accomplish the following: Independent: Ambulation;Bathe/Shower;Dress;Meal s/Meal Prep;Going to the bathroom;Medication Management Needs Assistance: Transportation to appointments/community Current Services/Equipment Current Post-Acute Service(s): DME Current DME Type: Other: See Ron Ron (colostomy supplies and urostomy supplies) Discharge Planning Patient Goal(s): General wellness, Be able to go home, Increase strength [place] Choice Explained: [place] Given: No Reason Not Given: No placements necessary Are you interested in bedside delivery of your medications? No Discharge Planning Participant(s): Patient Patient/Family Comments: patient plans to [place] home at [place]. Caregiver Assessment: Caregiver is ready, willing and able to meet the patient's needs as recommended by the inter-professional team: Yes Name of Caregiver: Julita Mays Transport at Discharge: Transportation Arrangements: Car Destination: home Needs Prior to Discharge: Needs Prior to Discharge: To Be Determined Post-Acute Discharge Plan: Pt from home with . Was going to start outpatient PT and plans to resume it when discharged. 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 Has a PCP and RX coverage. He has colostomy and urostomy supplies and a cane at home. He hopes to return home when ready for dc with to transport. Will follow for transitional care planning. SIGNATURE: Zak Dominique RN PATIENT NAME: Aubrey Mays DATE: October 06, 2022 TIME: 12:21 PM CONTACT #: [phone] [facility] documented as of this encounter (statuses as of 10/16/2022) [address]10-2021 History of Past illness Narrative* Problem Noted Date Resolved Date Incarcerated ventral hernia 08/24/202008/15 documented as of this encounter (statuses as of 10/29/2022) [address]-2021 History of Past illness Narrative* Problem Noted Date Resolved Date Incarcerated ventral hernia 08/24/202008/15 documented as of this encounter (statuses as of 11/12/2022) [address]-2021 History of Past illness Narrative* Problem Noted Date Resolved Date Incarcerated ventral hernia 08/24/202008/15 documented as of this encounter (statuses as of 11/13/2022) [address]10-2021 History of Past illness Narrative* Problem Noted Date Resolved Date Incarcerated ventral hernia 08/24/202008/15 documented as of this encounter (statuses as of 11/14/2022) [address]-2021 History of Past illness Narrative* Problem Noted Date Resolved Date Incarcerated ventral hernia 08/24/202008/15 documented as of this encounter (statuses as of 11/18/2022) [address]-2021 History of Past illness Narrative* Problem Noted Date Diagnosed Date Resolved Date Incarcerated ventral hernia 08/24/2020 08/26/2020 documented as of this encounter (statuses as of 11/25/2022) [address]10-2021 History of Past illness Narrative* Problem Noted Date Diagnosed Date Resolved Date Incarcerated ventral hernia 08/24/2020 08/26/2020 documented as of this encounter (statuses as of 11/27/2022) [address]21 History of Past illness Narrative* Problem Noted Date Diagnosed Date Resolved Date Incarcerated ventral hernia 08/24/2020 08/26/2020 documented as of this encounter (statuses as of 11/27/2022) [address]10-2021 History of Past illness Narrative* Problem Noted Date Diagnosed Date Resolved Date Incarcerated ventral hernia 08/24/2020 08/26/2020 documented as of this encounter (statuses as of 11/27/2022) [address]-2021 History of Past illness Narrative* Problem Noted Date Diagnosed Date Resolved Date Incarcerated ventral hernia 08/24/2020 08/26/2020 documented as of this encounter (statuses as of 11/28/2022) [address]-2021 History of Past illness Narrative* Problem Noted Date Diagnosed Date Resolved Date Incarcerated ventral hernia 08/24/2020 08/26/2020 documented as of this encounter (statuses as of 12/11/2022) [address]2021 History of Past illness Narrative* Problem Noted Date Diagnosed Date Resolved Date Incarcerated ventral hernia 08/24/2020 08/26/2020 documented as of this encounter (statuses as of 02/16/2023) [address]-2021 History of Past illness Narrative* Problem Noted Date Diagnosed Date Resolved Date Incarcerated ventral hernia 08/24/2020 08/26/2020 documented as of this encounter (statuses as of 05/07/2023) [facility] 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 [facility] 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 [facility] Diagnosis Metastatic adenocarcinoma to brain (HCC) 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 Reason for Referral Specialty Diagnoses / Procedures Referred By Contac t Referred To Contact MR IMAGING Diagnoses Metastatic adenocarcinoma to brain (HCC) Secondary malignant neoplasm of brain (HCC) Procedures MRI BRAIN WO/W IVCON MRI BRAIN BRAIN STEM W/O W/CONTRAST MATERIAL Nati Huffman APRN.CHANNEL WORKER [address] [place] [address] Mr Imaging Referral ID Status Reason Start Date Expiration Date V isits Requested Visits Authorized [id number] Closed Auto-Generate d Referral 10/27/2022 11/26/2023 1 1 Specialty Diagnoses / Procedures Referred By Contac t Referred To Contact MR IMAGING Diagnoses Secondary malignant neoplasm of brain (HCC) Procedures MRI BRAIN LOCALIZATION W IVCON UNLISTED MAGNETIC RESONANCE PROCED Nati Huffman APRN.CHANNEL WORKER [address] [place] [address] Mr Imaging Referral ID Status Reason Start Date Expiration Date V isits Requested Visits Authorized [id number] Closed Auto-Generate d Referral 11/26/2022 05/16/2023 1 1 Specialty Diagnoses / Procedures Referred By Contac t Referred To Contact CT IMAGING Diagnoses Secondary malignant neoplasm of brain (HCC) Procedures CT BRAIN STEREOLOCAL WO IVCON CT GUIDANCE STEREOTACTIC LOCALIZATION Nati Huffman APRN.CHANNEL WORKER [address] [place] [address] Ct Imaging Referral ID Status Reason Start Date Expiration Date V isits Requested Visits Authorized [id number] Closed Auto-Generate d Referral 11/26/2022 05/16/2023 1 1 Specialty Diagnoses / Procedures Referred By Contac t Referred To Contact MR IMAGING Diagnoses Secondary malignant neoplasm of brain (HCC) Procedures MRI BRAIN WO/W IVCON MRI BRAIN BRAIN STEM W/O W/CONTRAST MATERIAL Nati Huffman APRN.CHANNEL WORKER [address] [place] [address] Mr Imaging Referral ID Status Reason Start Date Expiration Date Visits Requested Visits Authorized [id number] Authorized Auto-Generat ed Referral 12/11/2022 01/09/2024 1 1 Summary Purpose Family History No Family History Records FoundNo Family History Records Found Advance Directives No Advanced Directives Records FoundNo Advanced Directives Records Found Additional Source Comments Source Comments (unrecognize d section and content) In the event this informatio n is protected by the Federal Confidentiality of Alcohol and Drug Abuse Patient Records regulations: The Federal rules restrict any use of the information to criminally investigate or prosecute any alcohol or drug abuse patient.[facility] event this information is protected by the Federal Confidentiality of Alcohol and Drug Abuse Patient Records regulations: The Federal rules restrict any use of the information to criminally investigate or prosecute any alcohol or drug abuse patient.[facility] the event this information is protected by the Federal Confidentiality of Alcohol and Drug Abuse Patient Records regulations: The Federal rules restrict any use of the information to criminally investigate or prosecute any alcohol or drug abuse patient.[facility] the event this information is protected by the Federal Confidentiality of Alcohol and Drug Abuse Patient Records regulations: The Federal rules restrict any use of the information to criminally investigate or prosecute any alcohol or drug abuse patient.[facility] the event this information is protected by the Federal Confidentiality of Alcohol and Drug Abuse Patient Records regulations: The Federal rules restrict any use of the information to criminally investigate or prosecute any alcohol or drug abuse patient.[facility] the event this information is protected by the Federal Confidentiality of Alcohol and Drug Abuse Patient Records regulations: The Federal rules restrict any use of the information to criminally investigate or prosecute any alcohol or drug abuse patient.[facility] the event this information is protected by the Federal Confidentiality of Alcohol and Drug Abuse Patient Records regulations: The Federal rules restrict any use of the information to criminally investigate or prosecute any alcohol or drug abuse patient.[facility] the event this information is protected by the Federal Confidentiality of Alcohol and Drug Abuse Patient Records regulations: The Federal rules restrict any use of the information to criminally investigate or prosecute any alcohol or drug abuse patient.[facility] the event this information is protected by the Federal Confidentiality of Alcohol and Drug Abuse Patient Records regulations: The Federal rules restrict any use of the information to criminally investigate or prosecute any alcohol or drug abuse patient.[facility] the event this information is protected by the Federal Confidentiality of Alcohol and Drug Abuse Patient Records regulations: The Federal rules restrict any use of the information to criminally investigate or prosecute any alcohol or drug abuse patient.[facility] the event this information is protected by the Federal Confidentiality of Alcohol and Drug Abuse Patient Records regulations: The Federal rules restrict any use of the information to criminally investigate or prosecute any alcohol or drug abuse patient.[facility] the event this information is protected by the Federal Confidentiality of Alcohol and Drug Abuse Patient Records regulations: The Federal rules restrict any use of the information to criminally investigate or prosecute any alcohol or drug abuse patient.[facility] the event this information is protected by the Federal Confidentiality of Alcohol and Drug Abuse Patient Records regulations: The Federal rules restrict any use of the information to criminally investigate or prosecute any alcohol or drug abuse patient.[facility] the event this information is protected by the Federal Confidentiality of Alcohol and Drug Abuse Patient Records regulations: The Federal rules restrict any use of the information to criminally investigate or prosecute any alcohol or drug abuse patient.[facility] the event this information is protected by the Federal Confidentiality of Alcohol and Drug Abuse Patient Records regulations: The Federal rules restrict any use of the information to criminally investigate or prosecute any alcohol or drug abuse patient.[facility] the event this information is protected by the Federal Confidentiality of Alcohol and Drug Abuse Patient Records regulations: The Federal rules restrict any use of the information to criminally investigate or prosecute any alcohol or drug abuse patient.[facility] Reason for Visit (unrecogniz ed section and content) Specialty Diagnoses / Procedures Referred By Leopoldo nickerson Referred To Contact ADMITTING Diagnoses Secondary malignant neoplasm of brain (HCC) Procedures STEREOTACTIC RADIOSURGERY 1 COMPLEX CRANIAL LES RADIATION DELIVERY STEREOTACTIC CRANIAL [place] STEREOTACTIC RADIOSURGERY 1 COMPLEX CRANIAL LESION RADIATION [place] STEREOTACTIC RADIOSURGERY (SRS) [place] CRANIAL LESION(S) 1 SESSION MULTI-SOURCE [place] [facility] [address] [id number] Referral ID Status Reason Start Date Expiration Date Visits Re quested Visits Authorized [id number] 1 1 Reason Comments Follow Up Phone Call All Clear Reason Comments Appointment Reason Comments Consult Reason Comments Post Op Specialty Diagnoses / Procedures Referred By Leopoldo nickerson Referred To Contact MR IMAGING Diagnoses Metastatic adenocarcinoma to brain (HCC) Secondary malignant neoplasm of brain (HCC) Procedures MRI BRAIN WO/W IVCON MRI BRAIN BRAIN STEM W/O W/CONTRAST MATERIAL Nati Huffman, COIN PURSE FRAMER.CHANNEL WORKER [address] [address] Mr Imaging Referral ID Status Reason Start Date Expiration Date V isits Requested Visits Authorized [id number] Closed Auto-Generate d Referral 10/27/2022 11/26/2023 1 1 Reason Comments Appointment Gamma Knife SRS inst ructions Reason Comments Radiology MRI Reason Comments Post Op Reason Comments Imaging Care Teams (unrecognized sec tion and content) 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 Machine 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 Relationship Specialty Start Date End Date Valentine Brand MD PCP - General Family Medicine 10/23/14 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 Machine Operator Relationship Specialty Start Date End Date Valentine Brand MD PCP - General Family Medicine 10/23/14 Carmela Epps [address] [place] [address] Hematology/Oncology 11/11/22 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 Machine Operator Relationship Specialty Start Date End Date Valentine Brand MD PCP - General Family Medicine 10/23/14 Carmela Epps [address] [place] [address] Hematology/Oncology 11/11/22 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 Machine 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 Relationship Specialty Start Date End Date Valentine Brand MD PCP - General Family Medicine 10/23/14 Carmela Epps [address] [place] [address] Hematology/Oncology 11/11/22 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 Machine Operator Relationship Specialty Start Date End Date Valentine Brand MD PCP - General Family Medicine 10/23/14 Carmela Epps [address] [place] [address] Hematology/Oncology 11/11/22 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 Machine 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 Relationship Specialty Start Date End Date Valentine Brand MD PCP - General Family Medicine 10/23/14 Carmela Epps [address] [place] [address] Hematology/Oncology 11/11/22 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 Machine Operator Relationship Specialty Start Date End Date Valentine Brand MD PCP - General Family Medicine 10/23/14 Carmela Epps [address] [place] [address] Hematology/Oncology 11/11/22 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 Machine Operator Relationship Specialty Start Date End Date Valentine Brand MD PCP - General Family Medicine 10/23/14 Carmela Epps [address] [place] [address] Hematology/Oncology 11/11/22 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 Machine Operator Relationship Specialty Start Date End Date Valentine Brand MD PCP - General Family Medicine 10/23/14 Carmela Epps [address] [place] [address] Hematology/Oncology 11/11/22 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 Machine Operator Relationship Specialty Start Date End Date Valentine Brand MD PCP - General Family Medicine 10/23/14 Carmela Epps [address] [place] [address] Hematology/Oncology 11/11/22 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 Machine Operator Relationship Specialty Start Date End Date Valentine Brand MD PCP - General Family Medicine 10/23/14 Carmela Epps [address] [place] [address] Hematology/Oncology 11/11/22 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 This clinical summary was aggregated from multiple sources. Caution should be exercised in using it in the provision of clinical care. This summary normalizes information from multiple sources, and as a consequence, information in this document may materially change the coding, format and clinical context of patient data. In addition, data may be omitted in some cases. CLINICAL DECISIONS SHOULD BE BASED ON THE PRIMARY CLINICAL RECORDS. [employer] provides no warranty or guarantee of the accuracy or completeness of information in this document.
--- NOTE | 2023-06-24 07:53 | CT_ITS ---
STUDY: CT CHEST, ABDOMEN T PELVIS WITH CONTRAST REASON FOR EXAM: Male, 72 years old. F/U RECTAL CANCER. Prior radiation. Chemotherapy. History of brain metastasis. RADIATION DOSAGE (If Supplied By Facility): CTDIvol = ( 20.47 ) mGy, DLP = ( 1877.56 ) mGycm TECHNIQUE: Transaxial imaging was performed following intravenous administration of IV 100mL Isovue-300. Multiplanar coronal and sagittal images were reformatted. Individualized dose optimization techniques were used for this CT. COMPARISON: Comparison is made with prior CT scan of thorax dated February 12, [address] scan of the abdomen dated September 10, 2022. FINDINGS: CHEST Stable 6 mm noncalcified nodule in the peripheral lateral aspect of the right lower lobe. The previously seen 4 mm nodule in the peripheral aspect of the left lower lobe is not seen at this time. There is no demonstrated pleural abnormality. There are calcifications of the coronary arteries. Normal mediastinum. Normal hilar regions. Normal unenhanced pulmonary arteries. There is mild degree of atherosclerotic calcification of the aortic arch. There are multi-level degenerative changes of the thoracic spine. ABDOMEN Hepatomegaly. Scattered hypodense nodular density is seen in the right lobe of the liver in keeping with metastatic deposits. The previously seen enhancing nodular densities in the dome of the right lobe of the liver are not seen at this time. Residual small enhancing nodular density is seen in the left lobe of the liver anteriorly. Normal gallbladder and extrahepatic biliary system. 6.3 mm hypodensity in the dome of the spleen. This is unchanged. This may represent a small cyst. Normal pancreas. Normal bilateral adrenal glands. Normal right kidney. Normal left kidney. Diffuse thickening of the gastric wall although the stomach is not distended with oral contrast. There is evidence of a midline anterior abdominal defect with herniation of nondilated small bowel loops and colon. This is essentially unchanged. Sigmoid diverticulosis. The appendix is visualized and appears normal. There is diffuse atherosclerotic calcification of the abdominal aorta, without a demonstrated aneurysm. Normal inferior vena cava. Normal retroperitoneum. Normal abdominal wall. There are diffuse degenerative changes of the visualized lumbar spine. PELVIS Normal urinary bladder. The prostate is enlarged. This measures 5.1 cm x 5.7 cm. This causes indentation at the bladder base. There is no pelvic fluid. There is no pelvic lymphadenopathy or mass lesion. There is diffuse atherosclerotic calcification of the pelvic arteries. CT/CT Chest, Abd, Pel w/Contrast IMPRESSION: Stable 6 mm noncalcified nodule in the peripheral lateral aspect of the right lower lobe. The previously seen 4 mm nodule in the peripheral aspect of the left lower lobe is not seen at this time. Improvement in the hepatic metastasis. Stable anterior abdominal hernia containing nondilated bowel loops. Electronically Signed: Aung Toure MD at 14:41 EST ,
== END | disposition home or self-care (01) ==
PROVIDERS: PCP Family Medicine; Referring Provider Internal Medicine Hematology & Oncology; Visit Provider Internal Medicine Hematology & Oncology
DX: C20 Malignant neoplasm of rectum (principal); C79.31 Secondary malignant neoplasm of brain
CPT/HCPCS: 71260; 74177; Q9967

== ENCOUNTER → 2023-08-20 | Outpatient (CLI) | payer MEDICARE, SELFPAY ==
--- NOTE | 2023-08-20 08:24 | MRI_ITS ---
STUDY: MR Brain WO/W Contrast 08/20/2023 2:33 PM REASON FOR EXAM: Male, 73 years old. 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 MR Brain WO/W Contrast 20 cc clariscan FINDINGS: There is mild cerebral atrophy with widening of the extra-axial spaces and ventricular dilatation. There are a limited number of small white matter hyperintensities, distributed throughout the deep white matter tracts of the cerebral hemispheres, consistent with mild chronic white matter ischemic changes. There is mild prominence of the vermian folia, consistent with atrophy of the vermis. There is a 10 mm enhancing mass in the right cerebellar hemispheres. 9 mm enhancing nodule near the right CPA. These are new findings. Normal bilateral basal ganglia. Normal thalami. There is no extra-axial fluid accumulation. Normal flow voids within the major intracranial circulation suggesting patency by spin echo criteria. Normal sella turcica, pituitary gland, infundibular stalk, optic chiasm and hypothalamus. Normal tectal plate and pineal gland. Normal midbrain, rena and medulla. Normal basal cisterns. Normal bilateral temporal bones. Normal bilateral internal auditory canals. No demonstrated orbital abnormality, within the constraints of a routine brain study. Normal visualized paranasal sinuses. Normal calvarium and skull base. Normal visualized soft tissue structures. Normal visualized upper cervical spine. Aspect score 10 MRI/Brain W/WO Contrast IMPRESSION: (NOT LISTED IN ORDER OF SIGNIFICANCE) Since the prior study, there has been development of an enhancing nodule in the right cerebral hemisphere and right CPA region. This is concerning for either metastatic disease or recurrent neoplasm. Electronically Signed: Alonzo Hampton MD at 14:45 EDT ,
[2023-08-20 08:55] LABS: CREATININE FINGERSTICK 1.3 mg/dL (0.70-1.30)
== END | disposition home or self-care (01) ==
PROVIDERS: PCP Family Medicine
DX: C79.31 Secondary malignant neoplasm of brain (principal); D32.0 Benign neoplasm of cerebral meninges
CPT/HCPCS: 70553; A9575

== ENCOUNTER → 2023-12-01 | Outpatient (CLI) | payer MEDICARE, SELFPAY ==
[2023-12-01 12:31] LABS: Absolute Lymphocyte Count 2.25 X10^3/uL (0.83-4.51); Absolute Neutrophil Count 4.4 X10^3/uL (2.0-7.7); Basophil# 0.04 X10^3/uL; Basophil% 0.6 % (0-1); Eosinophil# 0.07 X10^3/uL; Hematocrit 44.4 % (40-54); Hemoglobin 14.9 g/dL (13.0-16.5); Lymphocyte # 2.25 X10^3/ul (0.83-4.51); Mean Corp Hgb Conc 33.6 g/dL (32-36); Mean Corpuscular Hgb 30.1 pg (27.0-32.0); Mean Corpuscular Volume 89.7 fL (80-94); Monocyte# 0.46 X10^3/uL; Monocyte% 6.3 % (0-10); NRBC Flagged by Analyzer 0 % (0-5); Neutrophil # 4.42 X10^3/uL (2.7-7.7); Neutrophil % 60.8 % (47-70); Platelet Count 176 K/mm3 (150-450); RBC Distribution Width CV 14.3 % (11.6-14.6); RBC Distribution Width SD 46.9 fl (35.1-43.9); Red Blood Count 4.95 M/mm3 (4.6-6.2); White Blood Count 7.3 K/mm3 (4.4-11.0)
[2023-12-01 12:58] LABS: ALB/GLOB Ratio 0.9 RATIO (0.9-2.4); AST(SGOT) 20 U/L (15-37); Alanine Aminotransfer ALT/SGPT 27 U/L (16-61); Albumin, Serum 3.3 g/dL (3.2-5.0); Alkaline Phosphatase 66 U/L (45-117); Anion Gap 5 (5-15); BUN 17 mg/dL (7-18); BUN/Creat Ratio 20.4 RATIO (10-20); Calcium,Total 9.3 mg/dL (8.5-10.1); Chloride 108 mmol/L (98-107); Creatinine, Serum 0.84 mg/dL (0.70-1.30); EST Glomerular Filtration Rate 95 mL/min (>60); Est Glom Filt Rate - Afr Amer 115 mL/min (>60); Globulin 3.6 g/dL (2.2-4.2); Glucose 81 mg/dL (74-106); Potassium 3.9 mmol/L (3.5-5.1); Protein, Total 6.9 g/dL (6.4-8.2); Sodium Level 139 mmol/L (136-145)
[2023-12-01 13:10] LABS: Microalbumin,Random Urine 18.9 mg/L (NO RANGE EST.); Microalbumin:Creatinine Ratio 17.7 mg/g CRE (<30 mg/g CRE)
[2023-12-01 13:32] LABS: Hemoglobin A1c 6.2 % (3.8-5.6)
[2023-12-01 17:58] LABS: Cholesterol 106 mg/dL (200); High Density Lipoprotein 49 mg/dL; Thyroid Stim Hormone (TSH) 1.42 uIU/mL (0.358-3.74); Triglycerides 46 mg/dL; Very Low Density Lipoprotein 9 mg/dL (5-40)
[2023-12-02 04:07] LABS: Carcinoembryonic Antigen 3.6 ng/mL (0.0-4.7)
== END | disposition home or self-care (01) ==
LOC: LAB 11:30
PROVIDERS: PCP Family Medicine; Referring Provider Internal Medicine Hematology & Oncology; Visit Provider Internal Medicine Hematology & Oncology
DX: E11.40 Type 2 diabetes mellitus with diabetic neuropathy, unspecified (principal); C79.31 Secondary malignant neoplasm of brain; C20 Malignant neoplasm of rectum; E03.9 Hypothyroidism, unspecified; I10 Essential (primary) hypertension
CPT/HCPCS: 36415; 80053; 80061; 82043; 82378; 82570; 83036; 84443; 85025

== ENCOUNTER → 2023-12-02 | Outpatient (CLI) | payer MEDICARE, SELFPAY ==
--- NOTE | 2023-12-02 06:50 | CT_ITS ---
STUDY: CT CHEST, ABDOMEN T PELVIS WITH CONTRAST REASON FOR EXAM: Male, 73 years old. F/U LUNG LIVER NODULES H/O RECTUM CA RADIATION DOSAGE (If Supplied By Facility): CTDIvol = ( 20.57 ) mGy, DLP = ( 1988.66 ) mGycm TECHNIQUE: Transaxial imaging was performed following intravenous administration of Oral and amp;amp; IV Readi-CAT and amp;amp; 100mL Isovue-370. Multiplanar coronal and sagittal images were reformatted. Individualized dose optimization techniques were used for this CT. COMPARISON: Comparison is made with prior study dated June 24, 2023. FINDINGS: CHEST Essentially stable 6.5 mm noncalcified nodule in the peripheral lateral aspect of the right lower lobe action axial image #94. There is no demonstrated pleural abnormality. There are calcifications of the coronary arteries. Normal mediastinum. Normal hilar regions. Normal unenhanced pulmonary arteries. There is mild degree of atherosclerotic calcification of the aortic arch. There are multi-level degenerative changes of the thoracic spine. There is no demonstrated abnormality of the visualized upper abdomen. ABDOMEN Hepatomegaly. Stable appearance of the hypodense nodules in the right lobe of the liver laterally. These are unchanged in number and size. Stable small hypodense nodule in the left lobe of the liver. Normal gallbladder and extrahepatic biliary system. Stable 7 mm hypodensity in the dome of the spleen. Normal pancreas. Normal bilateral adrenal glands. Normal right kidney. Normal left kidney. Normal visualized stomach. Duodenal diverticulum. Once again, is evidence of a midline anterior abdominal defect with herniation of nondilated small bowel loops and colon. No evidence of bowel obstruction at this time. The appendix is visualized and appears normal. There is scattered atherosclerotic calcification of the abdominal aorta, without a demonstrated aneurysm. Normal inferior vena cava. Normal retroperitoneum. There are diffuse degenerative changes of the visualized lumbar spine. PELVIS Diffuse bladder wall thickening. Heterogeneous appearance of enlargement of the prostate with indentation of the bladder base. Diffuse scattered calcifications within the prostate. There is no pelvic fluid. There is no pelvic lymphadenopathy or mass lesion. There is diffuse atherosclerotic calcification of the pelvic arteries. CT/CT Chest, Abd, Pel w/Contrast IMPRESSION: Essentially stable examination. Electronically Signed: Aung Toure MD at 11:19 EDT ,
== END | disposition home or self-care (01) ==
PROVIDERS: PCP Family Medicine; Referring Provider Internal Medicine Hematology & Oncology; Visit Provider Internal Medicine Hematology & Oncology
DX: R91.1 Solitary pulmonary nodule (principal); C79.31 Secondary malignant neoplasm of brain; C20 Malignant neoplasm of rectum; K76.89 Other specified diseases of liver
CPT/HCPCS: 71260; 74177; Q9967

== ENCOUNTER → 2024-02-07 | Outpatient (CLI) | payer MEDICARE, SELFPAY ==
[2024-02-07 12:23] LABS: Absolute Lymphocyte Count 2.19 X10^3/uL (0.83-4.51); Absolute Neutrophil Count 6.4 X10^3/uL (2.0-7.7); Basophil# 0.06 X10^3/uL; Basophil% 0.6 % (0-1); Eosinophil# 0.14 X10^3/uL; Eosinophils% 1.5 % (0-5); Hematocrit 47.3 % (40-54); Hemoglobin 15.6 g/dL (13.0-16.5); Lymphocyte # 2.19 X10^3/ul (0.83-4.51); Lymphocyte % 23.2 % (19-41); Mean Corpuscular Hgb 30.2 pg (27.0-32.0); Mean Corpuscular Volume 91.5 fL (80-94); Monocyte% 6.3 % (0-10); NRBC Flagged by Analyzer 0 % (0-5); Neutrophil # 6.43 X10^3/uL (2.7-7.7); Neutrophil % 68.1 % (47-70); Platelet Count 185 K/mm3 (150-450); RBC Distribution Width CV 13.1 % (11.6-14.6); RBC Distribution Width SD 44.7 fl (35.1-43.9); Red Blood Count 5.17 M/mm3 (4.6-6.2); White Blood Count 9.5 K/mm3 (4.4-11.0)
[2024-02-07 12:31] LABS: Hemoglobin A1c 6.2 % (3.8-5.6)
[2024-02-07 12:41] LABS: ALB/GLOB Ratio 0.9 RATIO (0.9-2.4); AST(SGOT) 16 U/L (15-37); Alanine Aminotransfer ALT/SGPT 23 U/L (16-61); Albumin, Serum 3.3 g/dL (3.2-5.0); Alkaline Phosphatase 74 U/L (45-117); Anion Gap 5 (5-15); BUN 15 mg/dL (7-18); BUN/Creat Ratio 16.8 RATIO (10-20); CRP 8.87 mg/L (0.0-3.0); Calcium,Total 9.8 mg/dL (8.5-10.1); Chloride 107 mmol/L (98-107); Creatinine, Serum 0.89 mg/dL (0.70-1.30); EST Glomerular Filtration Rate 88 mL/min (>60); Est Glom Filt Rate - Afr Amer 107 mL/min (>60); Globulin 3.6 g/dL (2.2-4.2); Glucose 118 mg/dL (74-106); Protein, Total 6.9 g/dL (6.4-8.2); Sodium Level 137 mmol/L (136-145)
== END | disposition home or self-care (01) ==
LOC: MFPLAB 10:14
PROVIDERS: PCP Family Medicine; Visit Provider Family Medicine
DX: E11.40 Type 2 diabetes mellitus with diabetic neuropathy, unspecified (principal); R39.89 Other symptoms and signs involving the genitourinary system; N40.0 Benign prostatic hyperplasia without lower urinary tract symptoms
CPT/HCPCS: 36415; 80053; 83036; 84153; 85025; 86140

== ENCOUNTER → 2024-05-04 | Outpatient (CLI) | payer MEDICARE, SELFPAY ==
--- NOTE | 2024-05-04 08:48 | RAD_ITS ---
EXAM: XR ABDOMEN, 1 VIEW CLINICAL INDICATION: ABD PAIN TECHNIQUE: Frontal supine view of the abdomen/pelvis. COMPARISON: No relevant prior studies available. FINDINGS: GASTROINTESTINAL TRACT: Distended large and small bowel loops consistent with diffuse ileus. ORGANS: No organomegaly. BONES/JOINTS: No acute abnormality. RAD/Abdomen Single View IMPRESSION: Distended large and small bowel loops consistent with diffuse ileus. Electronically Signed: Nate Escalera MD at 9:57 EST ,
[2024-05-04 10:33] LABS: Absolute Lymphocyte Count 1.85 X10^3/uL (0.83-4.51); Absolute Neutrophil Count 4.9 X10^3/uL (2.0-7.7); Basophil# 0.06 X10^3/uL; Basophil% 0.8 % (0-1); Eosinophil# 0.11 X10^3/uL; Eosinophils% 1.5 % (0-5); Hematocrit 45.2 % (40-54); Hemoglobin 15.2 g/dL (13.0-16.5); Lymphocyte # 1.85 X10^3/ul (0.83-4.51); Lymphocyte % 24.4 % (19-41); Mean Corp Hgb Conc 33.6 g/dL (32-36); Mean Corpuscular Hgb 29.9 pg (27.0-32.0); Mean Platelet Vol. 10.1 fl (6.2-12.0); Monocyte# 0.56 X10^3/uL; Monocyte% 7.4 % (0-10); NRBC Flagged by Analyzer 0 % (0-5); Neutrophil # 4.93 X10^3/uL (2.7-7.7); Neutrophil % 65.1 % (47-70); Platelet Count 237 K/mm3 (150-450); RBC Distribution Width CV 13.2 % (11.6-14.6); RBC Distribution Width SD 43.1 fl (35.1-43.9); Red Blood Count 5.08 M/mm3 (4.6-6.2); White Blood Count 7.6 K/mm3 (4.4-11.0)
[2024-05-04 10:52] LABS: ALB/GLOB Ratio 0.8 RATIO (0.9-2.4); AST(SGOT) 10 U/L (15-37); Alanine Aminotransfer ALT/SGPT 25 U/L (16-61); Albumin, Serum 3.2 g/dL (3.2-5.0); Alkaline Phosphatase 81 U/L (45-117); Anion Gap 6 (5-15); BUN 17 mg/dL (7-18); BUN/Creat Ratio 18.1 RATIO (10-20); Calcium,Total 9.5 mg/dL (8.5-10.1); Chloride 108 mmol/L (98-107); Creatinine, Serum 0.94 mg/dL (0.70-1.30); EST Glomerular Filtration Rate 83 mL/min (>60); Est Glom Filt Rate - Afr Amer 101 mL/min (>60); Globulin 3.9 g/dL (2.2-4.2); Glucose 131 mg/dL (74-106); Potassium 4.2 mmol/L (3.5-5.1); Protein, Total 7.1 g/dL (6.4-8.2); Sodium Level 139 mmol/L (136-145)
== END | disposition home or self-care (01) ==
PROVIDERS: PCP Family Medicine; Referring Provider Family Medicine; Visit Provider Family Medicine
DX: R10.9 Unspecified abdominal pain (principal); E11.40 Type 2 diabetes mellitus with diabetic neuropathy, unspecified
CPT/HCPCS: 36415; 74018; 80053; 85025; 87086

== ENCOUNTER → 2024-06-14 | Outpatient (CLI) | payer MEDICARE, SELFPAY ==
--- NOTE | 2024-06-14 06:58 | CT_ITS ---
PROCEDURE: CT CHEST, ABD, PEL W/CONTRAST REASON FOR EXAM: Follow-up Mets for rectal cancer. TECHNIQUE: Chest CTA with intravenous contrast and 3D reconstructions. Abdomen and pelvis CT using the same cont rast dose. COMPARISON: 12/02/2023 CT. FINDINGS: CHEST: Lines and tubes: None. Mediastinum: No evidence of mediastinal hemorrhage. Heart: Normal heart size. No pericardial effusion. Thoracic Aorta: No evidence of acute traumatic aortic injury. Lungs and Airways: Unchanged right lower lobe 6 mm pulmonary nodule (image 97 of 140). Small right l ower lobe air-filled pulmonary cyst. Pleura: No pleural effusion. No pneumothorax. Bones: Degenerative changes of the spine. ABDOMEN AND PELVIS: Liver: Unchanged hepatic hypodense lesions. Gallbladder: Unremarkable. Spleen: Unchanged splenic hypodense lesion. Pancreas: Unremarkable. Adrenals: Unchanged right adrenal 16 mm adenoma. Kidneys: Right kidney simple cyst. Bladder: Unchanged concentric urinary bladder wall thickening favoring chronic outlet obstruction. Reproductive Organs: Enlarged prostate with internal calcifications. Bowel: Unremarkable. Vasculature: Mild atherosclerosis. Peritoneum / Retroperitoneum: No free fluid. No free air. Bones: Degenerative changes of the spine. TWO separate fat and bowel containing ventral hernias. No evidence of bowel obstruction. CT/CT Chest, Abd, Pel w/Contrast IMPRESSION: No interval change. Fat and bowel containing ventral hernias without evidence of bowel obstruction. One or more dose reduction techniques were used (e.g., Automated exposure contr ol, adjustment of the mA and/or kV according to patient size, use of iterative reconstruction technique). Reading Location: [id number]
[2024-06-14 07:32] LABS: CREATININE FINGERSTICK 1.2 mg/dL (0.70-1.30); EGFR FINGERSTICK > 60.0000 mL/min (>60)
[2024-06-14 08:04] LABS: Absolute Lymphocyte Count 1.17 X10^3/uL (0.83-4.51); Basophil# 0.04 X10^3/uL; Basophil% 0.5 % (0-1); Eosinophil# 0.03 X10^3/uL; Eosinophils% 0.4 % (0-5); Hematocrit 43.1 % (40-54); Hemoglobin 14.5 g/dL (13.0-16.5); Lymphocyte # 1.17 X10^3/ul (0.83-4.51); Lymphocyte % 15.3 % (19-41); Mean Corp Hgb Conc 33.6 g/dL (32-36); Mean Corpuscular Hgb 29.6 pg (27.0-32.0); Mean Platelet Vol. 9.6 fl (6.2-12.0); Monocyte# 0.37 X10^3/uL; Monocyte% 4.8 % (0-10); NRBC Flagged by Analyzer 0 % (0-5); Neutrophil # 6.03 X10^3/uL (2.7-7.7); Neutrophil % 78.7 % (47-70); Platelet Count 198 K/mm3 (150-450); RBC Distribution Width CV 14.2 % (11.6-14.6); RBC Distribution Width SD 45.5 fl (35.1-43.9); White Blood Count 7.7 K/mm3 (4.4-11.0)
[2024-06-14 08:24] LABS: ALB/GLOB Ratio 0.9 RATIO (0.9-2.4); AST(SGOT) 14 U/L (15-37); Alanine Aminotransfer ALT/SGPT 24 U/L (16-61); Albumin, Serum 3.3 g/dL (3.2-5.0); Alkaline Phosphatase 69 U/L (45-117); Anion Gap 7 (5-15); BUN 16 mg/dL (7-18); BUN/Creat Ratio 22.2 RATIO (10-20); Calcium,Total 9.1 mg/dL (8.5-10.1); Chloride 105 mmol/L (98-107); Creatinine, Serum 0.72 mg/dL (0.70-1.30); EST Glomerular Filtration Rate 113 mL/min (>60); Est Glom Filt Rate - Afr Amer 136 mL/min (>60); Globulin 3.5 g/dL (2.2-4.2); Glucose 141 mg/dL (74-106); Potassium 3.9 mmol/L (3.5-5.1); Protein, Total 6.8 g/dL (6.4-8.2); Sodium Level 136 mmol/L (136-145)
[2024-06-15 06:34] LABS: Carcinoembryonic Antigen 3.4 ng/mL (0.0-4.7)
== END | disposition home or self-care (01) ==
LOC: CT 06:54
PROVIDERS: PCP Family Medicine; Referring Provider Internal Medicine Hematology & Oncology; Visit Provider Internal Medicine Hematology & Oncology
DX: C20 Malignant neoplasm of rectum (principal); C79.31 Secondary malignant neoplasm of brain
CPT/HCPCS: 36415; 71260; 74177; 80053; 82378; 85025; Q9967

== ENCOUNTER → 2024-08-10 | Outpatient (CLI) | payer MEDICARE, SELFPAY ==
[2024-08-10 10:35] LABS: Bacteria 0 SEEN /hpf (None Seen); Mucous, Urine 0 SEEN /hpf (<or=2+); Squamous Epithelial Cells - UA 0 SEEN /hpf (0-5)
[2024-08-10 12:55] LABS: Color, Urine Yellow (Yellow); Glucose, Dipstick Normal (Normal); Ketone-Dipstick Negative (Negative); Leukocyte Esterase-Dipstick 500 /ul (Negative); Nitrite-Dipstick Negative (Negative); Occult Blood-Urine 150 /ul (Negative); Protein-Dipstick 100 mg/dl (Negative); Urine Bilirubin Dipstick Negative (Negative); Urine Clarity Cloudy (Clear); Urine Urobilinogen Normal (Normal)
[2024-08-10 13:02] LABS: White Blood Cells >100 SEEN /hpf (0-5)
[2024-08-10 13:03] LABS: Red Blood Cells-Urine 0 SEEN /hpf (0-5)
== END | disposition home or self-care (01) ==
PROVIDERS: PCP Family Medicine; Visit Provider Family Medicine
DX: R39.89 Other symptoms and signs involving the genitourinary system (principal)
CPT/HCPCS: 81001; 87077; 87086; 87088; 87186

== ENCOUNTER → 2024-09-14 | Outpatient (CLI) | payer MEDICARE, SELFPAY ==
--- NOTE | 2024-09-14 15:25 | RAD_ITS ---
PROCEDURE: LUMBAR SPINE 2 OR 3 VIEWS 09/14/2024 REASON FOR EXAM: BACK PAIN TECHNIQUE: 3 view(s) of the lumbar spine, AP, lateral and coned-down L5-S1 COMPARISON: None available FINDINGS: 5 [id number] lumbar vertebral type bodies identified. Study is limited by bowel gas and osteopenia. No fracture or malalignment. Suggestion of [id number] spondylosis/discogenic change at L5-S1. The disc spaces otherwise appear within limits. RAD/Lumbar Spine 2 or 3 Views IMPRESSION: Study is limited by bowel gas and osteopenia. No fracture or malalignment. Suggestion of kyjq-tj-qhrlcoil spondylosis/discogenic change at L5-S1. Reading Location: [id number]
--- NOTE | 2024-09-14 15:40 | RAD_ITS ---
PROCEDURE: SACRUM-COCCYX MIN 2 VIEWS 09/14/2024 REASON FOR EXAM: BACK PAIN TECHNIQUE: 3 view(s) of the sacrum and coccyx. COMPARISON: None available FINDINGS: No acute appearing fracture identified. The SI joints and pubic symphysis appear within limits. Vascular calcifications and pelvic surgical clips. RAD/Sacrum-Coccyx min 2 Views IMPRESSION: No acute appearing fracture identified. Reading Location: [id number]
[2024-09-14 18:20] LABS: Absolute Lymphocyte Count 1.75 X10^3/uL (0.83-4.51); Absolute Neutrophil Count 4.1 X10^3/uL (2.0-7.7); Basophil# 0.05 X10^3/uL; Basophil% 0.8 % (0-1); Eosinophil# 0.02 X10^3/uL; Eosinophils% 0.3 % (0-5); Hematocrit 44.8 % (40-54); Hemoglobin 15.5 g/dL (13.0-16.5); Lymphocyte # 1.75 X10^3/ul (0.83-4.51); Mean Corp Hgb Conc 34.6 g/dL (32-36); Mean Corpuscular Hgb 31.3 pg (27.0-32.0); Mean Corpuscular Volume 90.3 fL (80-94); Mean Platelet Vol. 9.7 fl (6.2-12.0); Monocyte# 0.55 X10^3/uL; Monocyte% 8.5 % (0-10); NRBC Flagged by Analyzer 0 % (0-5); Neutrophil # 4.09 X10^3/uL (2.7-7.7); Neutrophil % 62.9 % (47-70); Platelet Count 192 K/mm3 (150-450); RBC Distribution Width CV 14.6 % (11.6-14.6); RBC Distribution Width SD 48.5 fl (35.1-43.9); Red Blood Count 4.96 M/mm3 (4.6-6.2); White Blood Count 6.5 K/mm3 (4.4-11.0)
[2024-09-14 18:39] LABS: Erythrocyte Sedimentation Rate 7 mm/hr (0-20)
[2024-09-14 19:02] LABS: ALB/GLOB Ratio 1.5 RATIO (0.9-2.4); AST(SGOT) 21 U/L (<=37); Alanine Aminotransfer ALT/SGPT 15 U/L (<=46); Albumin, Serum 4.1 g/dL (3.4-4.8); Alkaline Phosphatase 62 U/L (40-129); Anion Gap 13 (5-15); BUN 15 mg/dL (4-19); BUN/Creat Ratio 16.3 RATIO (10-20); Calcium,Total 9.2 mg/dL (7.6-11.0); Carbon Dioxide 21.2 mmol/L (21.0-32.0); Chloride 102 mmol/L (98-108); EST Glomerular Filtration Rate 89 (>60); Ferritin 176 ng/mL (37-417); Free T3 1.8 pg/mL (2.18-3.98); Globulin 2.7 g/dL (2.2-4.2); Glucose 122 mg/dL (70-99); Potassium 3.8 mmol/L (3.3-5.1); Protein, Total 6.8 g/dL (5.9-8.4); Sodium Level 136 mmol/L (133-145); Total Bilirubin 0.79 mg/dL (0.00-1.30); Vitamin B12 322 pg/mL (180-914)
[2024-09-14 19:05] LABS: CRP < 3.00 mg/L (0.0-3.0)
[2024-09-14 19:14] LABS: FOLATES,SERUM (FOLIC ACID) 9.79 ng/mL (4.60-34.80)
== END | disposition home or self-care (01) ==
LOC: MTLAB 15:23
PROVIDERS: PCP Family Medicine; Referring Provider Family Medicine; Visit Provider Family Medicine
DX: M54.9 Dorsalgia, unspecified (principal); E03.9 Hypothyroidism, unspecified; R53.83 Other fatigue; G89.29 Other chronic pain
CPT/HCPCS: 36415; 72100; 72220; 80053; 82607; 82728; 82746; 84165; 84439; 84443; 84481; 85025; 85652; 86140

== ENCOUNTER → 2024-10-24 | Outpatient (CLI) | payer MEDICARE, SELFPAY ==
[2024-10-24 20:32] LABS: Free T3 1.9 pg/mL (2.18-3.98)
== END | disposition home or self-care (01) ==
LOC: MFPLAB 11:04
PROVIDERS: PCP Family Medicine; Referring Provider Family Medicine; Visit Provider Family Medicine
DX: E03.9 Hypothyroidism, unspecified (principal)
CPT/HCPCS: 36415; 84439; 84443; 84481

== ENCOUNTER 2024-11-01 05:25 | Emergency (ER) | payer MEDICARE, SELFPAY ==
[2024-11-01 05:27] VITALS: BP 124/84; PULSE 72; RESP 16; TEMP 36.6; O2SAT 99; BMI 28.5
--- NOTE | 2024-11-01 06:01 | EDS_ITS ---
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 Patient states he has been having diarrhea for the past 3 weeks. He states every night he has been filling up his colostomy bag twice. States sometimes the stool is darker like the color of coffee and other times it is green chainer. Denies any blood in his stool. Denies associate nausea or vomiting. Denies any abdominal pain. Does have chronic back pain but this is unchanged. Denies any fever or chills. Denies any lightheadedness. States he thinks he is dehydrated. Has not been seen for this diarrhea yet. Is not currently on any chemotherapy. Denies any new medications. Denies any history of C. difficile. Denies any recent antibiotics. [facility] Medical History Status post gamma knife treatment Metastasis to brain Lung nodule Liver nodule Recurrent incisional hernia Diabetes Tobacco use disorder, continuous Encounter for screening for malignant neoplasm of lung in current smoker with 30 pack year history or greater Rectum cancer DISSECTED URETHRA Suprapubic catheter Colostomy in place ABDOMINAL PERINEAL RESETION OF SIGMOID Hypertension Rectal cancer Home Medications ?Medication ?Instructions ?Recorded ?Last Taken ?Type lisinopril 20 mg tablet 20 mg PO BID 01/22/14 History atorvastatin 10 mg tablet 10 mg PO DAILY 02/18/2108/16 History glipizide 10 mg tablet, extended 10 mg PO QHS 01/23/22 09/09/22 History release 24 hr levothyroxine 125 mcg tablet 125 mcg PO DAILY 01/23/22 09/06/22 History (Synthroid) Allergy/AdvReac Type Severity Reaction Status Date / Time No Known Allergies Allergy Verified 11/01/24 05:26 Family History Mother Heart disease Myocardial infarction Hypertension Surgical History History of brain surgery History of liver biopsy History of incisional hernia repair History of bladder surgery History of rectal surgery History of bowel resection Social History Smoking Status: Current every day smoker tobacco type: cigarettes Tobacco: How many years used: 51 Electronic Cigarette Use: not used second hand exposure: Yes quit status: has quit before ROS ROS ED Constitutional Constitutional ED: Denies chills, fever(s) or sweats Respiratory/Chest Respiratory/Chest: Denies cough or dyspnea Gastrointestinal Gastrointestinal: Reports diarrhea; Denies abdominal pain, melena, nausea or vomiting Genitourinary Genitourinary ED: Denies dysuria or hematuria Musculoskeletal Musculoskeletal: Reports back pain and other Details: Chronic back pain?no acute change ; Denies arthralgias Neurologic Neurologic: Denies weakness Hematologic/Lymphatic Hematologic/Lymphatic: Denies easy bleeding or easy bruising EXAM Physical Exam Const Vital Signs: 11/01/24 05:27 Temperature 97.8 F Temperature Source Oral Pulse Rate 72 Respiratory Rate 16 Blood Pressure 124/84 H Blood Pressure Mean 97 Pulse Ox 99 Oxygen Delivery Method Room Air Positive well nourished and well developed General Appearance ED: well developed and NAD; Negative for pallor HEENT Reports moist mucous membranes normocephalic and atraumatic Neck supple Resp normal respiratory effort and clear to auscultation bilaterally Cardio regular rate and regular rhythm GI non-tender and non-distended GI Narrative: Colostomy bag in place. No significant stool present however patient states she just changes back before coming in. Abdomen is soft. Hyperactive bowel sounds present. Extremity full ROM Neuro moves all extremities Sensorium / Orientation: alert, oriented to person, oriented to place and oriented to time Motor Exam: Negative for general weakness Psych mental status grossly normal and thought process normal Skin no wounds General Skin Exam: Negative for jaundice or pallor MDM MDM MDM Narrative Medical decision making narrative: Patient's evaluated for 2 to 3 weeks and diarrhea and concern for dehydration. Vital signs are normal. Clinically is overall well-appearing. He does have a colostomy increase in the risk of electrolyte normalities and dehydration. His abdomen is soft and nontender to lower suspicion for colitis. Stool studies were ordered of as differential does include infectious diarrhea such as C. difficile. CBC, CMP and magnesium obtained. All largely normal except for his bicarb which is mildly low at 18.3. He is given IV fluids in the emergency room. He does not have any diarrhea while the emergency room still unable to obtain stool sample. Will give outpatient referral for GI. Will finish IV fluids. At this time patient overall well-appearing, tolerating p.o. and has normal vital signs I do not think he needs more emergent workup. He is agreeable with this. Given return precautions. Discharged home in stable condition. He does not have a leukocytosis and given that he cannot produce a stool sample in the ER have a lower suspicion for C. difficile colitis. Lab Data Attestation: I reviewed the patient's lab results. Labs: Laboratory Results - last 24 hr 11/01/24 06:05 WBC 11.0 RBC 4.87 Hgb 15.4 Hct 43.9 MCV 90.1 MCH 31.6 MCHC 35.1 RDW Std Deviation 46.9 H RDW Coeff of Ewa 14.3 Plt Count 228 MPV 9.6 Immature Gran % (Auto) 0.600 Neut % (Auto) 71.3 H Lymph % (Auto) 20.9 Lynn % (Auto) 6.3 Eos % (Auto) 0.5 Baso % (Auto) 0.4 Absolute Neuts (auto) 7.8 H Absolute Lymphs (auto) 2.29 Nucleated RBC % 0 Sodium 135 Potassium 4.1 Chloride 104 Carbon Dioxide 18.3 L Anion Gap 13 BUN 18 Creatinine 1.02 Estim Creat Clear Calc 63.39 Est GFR (MDRD) Non-Af 76 BUN/Creatinine Ratio 17.5 Glucose 144 H Calcium 9.5 Total Bilirubin 0.76 AST 29 ALT 47 Alkaline Phosphatase 81 Total Protein 6.9 Albumin 4.0 Globulin 3.0 Albumin/Globulin Ratio 1.3 Discharge Plan Triage Chief Complaint: Diarrhea ED Provider: Selma Wells Dx/Rx/DC Orders Clinical Impression: Diarrhea, History of colostomy Instructions: ED Diarrhea, Unknown Cause Prescriptions: No Action atorvastatin 10 mg tablet 10 mg PO DAILY lisinopril 20 MG tablet 20 mg PO BID Patient Comments: glipizide 10 mg tablet extended release 24hr 10 mg PO QHS levothyroxine [Synthroid] 125 mcg tablet 125 mcg PO DAILY Primary Care Provider: Byron Brand Referrals: Byron Brand MD [Primary Care Provider] - Friend,DO Cornell [Med Staff - Active Staff] - Activity Restrictions/Additional Instructions: You been given referral to a GI doctor. Please also follow-up with your family doctor. Your workup today was largely normal with no significant electrolyte abnormalities. We were unable to collect a stool sample today however your primary care doctor or GI doctor can also order this test outpatient. Print Language: [place] Disposition Disposition: Home, Self Care
[2024-11-01] MEDS: 0.9% Normal Saline (1000mL) 1,000 ML 999 ML IV (06:14)
[2024-11-01 06:20] LABS: Absolute Lymphocyte Count 2.29 X10^3/uL (0.83-4.51); Absolute Neutrophil Count 7.8 X10^3/uL (2.0-7.7); Basophil# 0.04 X10^3/uL; Basophil% 0.4 % (0-1); Eosinophil# 0.05 X10^3/uL; Eosinophils% 0.5 % (0-5); Hematocrit 43.9 % (40-54); Hemoglobin 15.4 g/dL (13.0-16.5); Lymphocyte # 2.29 X10^3/ul (0.83-4.51); Lymphocyte % 20.9 % (19-41); Mean Corp Hgb Conc 35.1 g/dL (32-36); Mean Corpuscular Hgb 31.6 pg (27.0-32.0); Mean Corpuscular Volume 90.1 fL (80-94); Mean Platelet Vol. 9.6 fl (6.2-12.0); Monocyte# 0.69 X10^3/uL; Monocyte% 6.3 % (0-10); NRBC Flagged by Analyzer 0 % (0-5); Neutrophil # 7.82 X10^3/uL (2.7-7.7); Neutrophil % 71.3 % (47-70); Platelet Count 228 K/mm3 (150-450); RBC Distribution Width CV 14.3 % (11.6-14.6); RBC Distribution Width SD 46.9 fl (35.1-43.9); Red Blood Count 4.87 M/mm3 (4.6-6.2)
[2024-11-01 06:49] LABS: ALB/GLOB Ratio 1.3 RATIO (0.9-2.4); AST(SGOT) 29 U/L (<=37); Alanine Aminotransfer ALT/SGPT 47 U/L (<=46); Alkaline Phosphatase 81 U/L (40-129); Anion Gap 13 (5-15); BUN 18 mg/dL (4-19); BUN/Creat Ratio 17.5 RATIO (10-20); Calcium,Total 9.5 mg/dL (7.6-11.0); Carbon Dioxide 18.3 mmol/L (21.0-32.0); Chloride 104 mmol/L (98-108); Creatinine, Serum 1.02 mg/dL (0.70-1.20); EST Glomerular Filtration Rate 76 (>60); Estimated Creatinine Clearance 63.39 ml/min (50-250); Glucose 144 mg/dL (70-99); Potassium 4.1 mmol/L (3.3-5.1); Protein, Total 6.9 g/dL (5.9-8.4); Sodium Level 135 mmol/L (133-145); Total Bilirubin 0.76 mg/dL (0.00-1.30)
[2024-11-01 07:26] VITALS: BP 164/78; PULSE 78; RESP 14; TEMP 37; O2SAT 98
[2024-11-01 07:48] VITALS: BP 167/78; PULSE 78; RESP 16; TEMP 36.9; O2SAT 99
== END 2024-11-01 07:49 | disposition home or self-care (01) ==
PROVIDERS: Emergency Provider Emergency Medicine; PCP Family Medicine; Visit Provider Emergency Medicine
DX: R19.7 Diarrhea, unspecified (principal); Z93.3 Colostomy status; E11.9 Type 2 diabetes mellitus without complications; M54.9 Dorsalgia, unspecified; G89.29 Other chronic pain; I10 Essential (primary) hypertension; F17.210 Nicotine dependence, cigarettes, uncomplicated; Z92.3 Personal history of irradiation; Z90.49 Acquired absence of other specified parts of digestive tract; Z85.048 Personal history of other malignant neoplasm of rectum, rectosigmoid junction, and anus; Z85.841 Personal history of malignant neoplasm of brain; Z79.84 Long term (current) use of oral hypoglycemic drugs; Z79.899 Other long term (current) drug therapy
CPT/HCPCS: 80053; 83630; 85025; 87493; 87506; 96360; 99283; A4216

== ENCOUNTER → 2024-11-07 | Outpatient (CLI) | payer MEDICARE, SELFPAY | END | disposition home or self-care (01) | LOC: LAB 09:46 | PROVIDERS: PCP Family Medicine; Referring Provider Internal Medicine Hematology & Oncology; Visit Provider Internal Medicine Hematology & Oncology | DX: C20 Malignant neoplasm of rectum (principal) | CPT/HCPCS: 36415; 82378 ==